=== PATIENT | male | born 1975 | race Caucasian/White ===

== ENCOUNTER 2020-10-22 07:56 | Outpatient (REF) | payer OTHER, SELFPAY ==
[2020-10-22 08:36] LABS: Hematocrit 39.5 % (42-52); Hemoglobin 12.8 g/dl (14.0-18.0); Mean Corpuscular HGB Conc 32.4 g/dl (31.0-36.0); Mean Corpuscular Hemoglobin 27.2 pg (27.0-33.0); Mean Corpuscular Volume 83.9 fL (80-98); Mean Platelet Volume 10.6 fL (9.4-12.4); Red Blood Count 4.71 X10*6/uL (4.60-5.80); Red Cell Distribution Width 14.5 % (11.0-16.0)
[2020-10-22 08:38] LABS: Platelet Count 90 X10*3/uL (160-400)
[2020-10-22 08:56] LABS: Alanine Aminotransferase 32 U/L (0-40); Albumin Level 3.6 g/dL (3.5-5.0); Alkaline Phosphatase 86 U/L (39-117); Aspartate Amino Transferase 44 U/L (5-37); Bilirubin Direct 0.4 mg/dL (0.0-0.5); Cholesterol 110 mg/dL; HDL Cholesterol 38 mg/dL; LDL Cholesterol Calculated 55 mg/dl; Total Protein 6.8 g/dL (6.5-8.0); Triglycerides 89 mg/dL
[2020-10-22 09:19] LABS: Thyroid Stimulating Hormone 2.04 uIU/mL (0.32-4.0)
[2020-10-22 09:30] LABS: Folate 14.6 ng/mL (> or = 4.0); Vitamin B12 436 pg/mL (200-900)
[2020-10-25 12:26] LABS: Vitamin D 25-OH, D2 <4 ng/mL; Vitamin D 25-OH, D3 14 ng/mL; Vitamin D 25-OH, Total 14 ng/mL (30-100)
== END 2020-10-22 07:57 | disposition home or self-care (01) ==
LOC: HO.LAB 07:56
PROVIDERS: Visit Provider Internal Medicine
DX: F32.5 Major depressive disorder, single episode, in full remission (principal)
CPT/HCPCS: 36415; 80061; 80076; 82306; 82607; 82746; 84443; 85027

== ENCOUNTER 2020-11-20 15:32 | Outpatient (REF) | payer OTHER, SELFPAY ==
[2020-11-20 16:37] LABS: MANUAL DIFF FLAG NO
[2020-11-20 16:42] LABS: Basophils Percent Auto 0.7 % (0-2); Eosinophils Absolute Auto 0.1 X10*3/uL (0.0-0.4); Eosinophils Percent Auto 0.9 % (0-4); Hematocrit 44.2 % (42-52); Hemoglobin 14.1 g/dl (14.0-18.0); Imm Gran Abs Auto 0.01 X10*3/uL (0.00-0.03); Imm Gran Pct Auto 0.2 % (0.0-0.4); Lymphocytes Absolute Auto 2.2 X10*3/uL (1.2-4.9); Mean Corpuscular HGB Conc 31.9 g/dl (31.0-36.0); Mean Corpuscular Hemoglobin 26.9 pg (27.0-33.0); Mean Corpuscular Volume 84.4 fL (80-98); Mean Platelet Volume 10.9 fL (9.4-12.4); Monocytes Absolute Auto 0.5 X10*3/uL (0.1-1.2); Monocytes Percent Auto 7.7 % (2-11); Neutrophils Absolute Auto 3.1 X10*3/uL (2.0-8.3); Neutrophils Percent Auto 52.5 % (45-73); Platelet Count 119 X10*3/uL (160-400); Red Blood Count 5.24 X10*6/uL (4.60-5.80); Red Cell Distribution Width 14.3 % (11.0-16.0); White Blood Count 5.8 X10*3/uL (4.8-10.8)
[2020-11-20 17:11] LABS: Alanine Aminotransferase 37 U/L (0-40); Albumin Level 4.5 g/dL (3.5-5.0); Alkaline Phosphatase 67 U/L (39-117); Anion Gap 11 (12-20); Aspartate Amino Transferase 43 U/L (5-37); Bilirubin Total 1.1 mg/dL (0.0-1.0); Blood Urea Nitrogen 10 mg/dL (9-16); Calcium 8.9 mg/dL (8.4-10.2); Carbon Dioxide 32 mmol/L (22-29); Chloride 102 mmol/L (96-108); Estimated Glomerular Filt Rate > 60; Glucose Fasting 69 mg/dL (60-99); Potassium 3.8 mmol/L (3.3-5.1); Sodium 141 mmol/L (135-145); Total Protein 8.3 g/dL (6.5-8.0)
== END 2020-11-20 15:33 | disposition home or self-care (01) ==
LOC: HO.LAB 15:32
PROVIDERS: Visit Provider Nurse Practitioner Family
DX: Z01.818 Encounter for other preprocedural examination (principal)
CPT/HCPCS: 36415; 80053; 85025

== ENCOUNTER 2020-12-13 13:09 | Outpatient (REF) | payer OTHER, SELFPAY ==
[2020-12-13 14:10] LABS: Eosinophils Absolute Auto 0.1 X10*3/uL (0.0-0.4); Eosinophils Percent Auto 1.2 % (0-4); Hemoglobin 13.1 g/dl (14.0-18.0); Imm Gran Abs Auto 0.01 X10*3/uL (0.00-0.03); Imm Gran Pct Auto 0.2 % (0.0-0.4); MANUAL DIFF FLAG SCAN; PLT CLUMP 1; Red Cell Distribution Width 14.2 % (11.0-16.0); SCAN SMEAR FLAG 1
[2020-12-13 14:12] LABS: Basophils Percent Auto 0.4 % (0-2); Lymphocytes Absolute Auto 1.9 X10*3/uL (1.2-4.9); Lymphocytes Percent Auto 37.3 % (20-40); Mean Corpuscular HGB Conc 32.8 g/dl (31.0-36.0); Mean Corpuscular Hemoglobin 27.2 pg (27.0-33.0); Mean Platelet Volume 10.3 fL (9.4-12.4); Monocytes Absolute Auto 0.4 X10*3/uL (0.1-1.2); Monocytes Percent Auto 8.3 % (2-11); Neutrophils Absolute Auto 2.7 X10*3/uL (2.0-8.3); Neutrophils Percent Auto 52.6 % (45-73); Red Blood Count 4.82 X10*6/uL (4.60-5.80)
[2020-12-13 14:22] LABS: Platelet Count 97 X10*3/uL (160-400)
[2020-12-13 14:25] LABS: Alanine Aminotransferase 26 U/L (0-40); Albumin Level 3.9 g/dL (3.5-5.0); Alkaline Phosphatase 71 U/L (39-117); Amylase 55 U/L (28-100); Anion Gap 10 (12-20); Aspartate Amino Transferase 36 U/L (5-37); Bilirubin Total 0.7 mg/dL (0.0-1.0); Blood Urea Nitrogen 6 mg/dL (9-16); Calcium 8.6 mg/dL (8.4-10.2); Carbon Dioxide 30 mmol/L (22-29); Chloride 104 mmol/L (96-108); Estimated Glomerular Filt Rate > 60; Glucose Random 77 mg/dL (60-115); Lipase 20 U/L (8-78); Sodium 140 mmol/L (135-145); Total Protein 7.2 g/dL (6.5-8.0)
== END 2020-12-13 13:10 | disposition home or self-care (01) ==
LOC: HO.HMGCLDS 13:09
PROVIDERS: Visit Provider Nurse Practitioner Family
DX: R10.11 Right upper quadrant pain (principal)
CPT/HCPCS: 36415; 80053; 82150; 83690; 85025; 87086

== ENCOUNTER 2020-12-14 11:32 | Outpatient (REF) | payer OTHER, SELFPAY ==
--- NOTE | ~2020-12-14 | US_ITS ---
EXAMINATION: US ABDOMEN LIMITED CLINICAL INFORMATION: Right upper quadrant pain. COMPARISON: Previous CT of the abdomen and pelvis most recent March 2018, MRI of the abdomen October 2018 and abdominal ultrasound September 2018 TECHNIQUE: Real-time imaging of the right upper quadrant abdominal viscera. FINDINGS: PANCREAS: Not well visualized due to bowel gas LIVER: Liver echotexture is heterogeneous suggestive of hepatocellular disease. The liver echotexture is slightly increased. No focal liver lesion is seen. There is no biliary duct dilatation. GALLBLADDER: Gallbladder is distended. No gallstones are seen. The gallbladder wall is normal thickness. There is no pericholecystic fluid. COMMON BILE DUCT: Normal in caliber measuring 0.7 cm in diameter. RIGHT KIDNEY: Normal. No hydronephrosis. No renal calculi or focal parenchymal lesions. The kidney measures 10.4 cm in maximum dimension. FREE FLUID: None. US/US abdomen limited IMPRESSION: Heterogeneous liver suggestive of hepatocellular disease. Distended gallbladder. No gallstone seen. Pancreas not well visualized.
== END 2020-12-14 11:33 | disposition home or self-care (01) ==
LOC: HO.HMGCX 11:32
PROVIDERS: PCP Internal Medicine; Visit Provider Nurse Practitioner Family
DX: R10.11 Right upper quadrant pain (principal); K74.60 Unspecified cirrhosis of liver
CPT/HCPCS: 76705

== ENCOUNTER 2020-12-23 07:06 | Emergency (ER) | payer OTHER, SELFPAY ==
--- NOTE | ~2020-12-23 | CT_ITS ---
EXAMINATION: CT ABDOMEN AND PELVIS WITH CONTRAST CLINICAL INFORMATION: Right upper quadrant and right-sided abdominal pain. COMPARISON: MRI of 10/12/18. Prior CT scan of 03/26/18. TECHNIQUE: Multidetector volumetric images were obtained from the superior aspect of the liver through the pubic symphysis following administration 85 mL of Omnipaque 350 intravenous contrast. Sagittal and coronal reformatted images were obtained on the technologist's workstation. Oral contrast: No This CT examination was performed using dose optimization techniques as appropriate, variously including the following: *Automated exposure control *Adjustment of mA and/or kV according to patient size (this includes techniques or standardized protocols for targeted exams where dose is matched to indication/reason for exam; i.e. extremities or head) *Use of iterative reconstruction technique DLP: 934 mGy-cm FINDINGS: LUNG BASES: A small pleural-based opacity at the right base is consistent with scarring unchanged from previous. LIVER, GALLBLADDER, AND BILIARY TREE: Mild nodular contour of the liver is again demonstrated. Small liver lesion seen on the prior studies are not as conspicuous. No suspicious abnormality is demonstrated. The gallbladder is unremarkable with no evidence of radiopaque gallstones, gallbladder wall thickening, or obvious pericholecystic inflammatory changes. Mild prominence of the CBD and central intrahepatic ducts is slightly increased. The CBD measures 1.0 cm. No obstructing lesion is demonstrated. PANCREAS: Unremarkable. SPLEEN: The spleen is enlarged measuring 16 cm in maximal dimension. Splenic varices are again demonstrated. ADRENAL GLANDS: Unremarkable. KIDNEYS AND URETERS: The kidneys are normal in size, shape, and attenuation. No hydronephrosis, hydroureter, or calculi seen. No perinephric stranding. 2 small cysts in the right kidney are unchanged. BLADDER: Unremarkable. GASTROINTESTINAL TRACT: The stomach and duodenum are unremarkable. The small bowel mesentery are unremarkable. The colon is unremarkable. The appendix is not visualized. Surgical changes at the tip of the cecum suggest previous appendectomy. ABDOMINAL WALL: No significant hernia is appreciated. A small subcutaneous lesion anteriorly in the suprapubic region is unchanged. LYMPH NODES: Normal. VASCULAR: Unremarkable. PELVIC VISCERA: Unremarkable. OSSEOUS STRUCTURES: There is a sclerotic lesion in the posterior left ilium consistent with benign bone island unchanged. Progression of degenerative disc disease at L5-S1. No suspicious lesion. CT/CT abdomen pelvis w con IMPRESSION: 1. Mildly cirrhotic appearance of the liver with no suspicious abnormality demonstrated. Overall appearance is improved. 2. Mildly dilated CBD and central intrahepatic ducts increased from previous. No obstructing lesion is demonstrated. Correlation with liver enzymes is suggested. 3. Stable appearance of splenomegaly with varices consistent with portal hypertension. 4. Progression of degenerative disc disease at L5-S1.
[2020-12-23 07:10] VITALS: BP 130/68; PULSE 94; RESP 16; TEMP 36.9; O2SAT 98; BMI 34.7
--- NOTE | 2020-12-23 07:52 | ED_ITS ---
HPI - Abdominal Pain General Chief Complaint: Abdominal Pain Stated Complaint: GALL BLADDER PAIN Time Seen by Provider: 12/23/20 07:41 Source: patient and old records reviewed Mode of arrival: ambulatory Limitations: no limitations History of Present Illness HPI narrative: 45 yo male with hx of ETOH abuse, opiate use disorder, cirrhosis likely from ETOH and Hep C which is treated per him has been having RUQ pain for a few weeks seen on 12/13 with normal LFTs, US normal but distended GB, cirrhotic liver MD elicited complaint: abdominal pain Onset (ago): week(s) Pain Consistency: intermittent Location: RUQ Severity: moderate Quality: stabbing and aching Radiation: RUQ Migration to: no migration Exacerbating factors: nothing Relieving factors: nothing Associated symptoms: nausea and vomiting Related Data Previous Rx's Medication Instructions Recorded citalopram 10 mg tablet 10 mg PO DAILY #90 tab 08/21/20 cholecalciferol (vitamin D3) 1,250 1,250 mcg PO QWEEK #14 cap 11/06/20 mcg (50,000 unit) capsule doxepin 50 mg capsule 50 mg PO BEDTIME #30 cap 11/06/20 Allergies Allergy/AdvReac Type Severity Reaction Status Date / Time No Known Allergies Allergy Verified 12/13/20 12:30 [No Known Allergies*] Review of Systems Review of Systems Constitutional : No Weight loss, No Fever, No Chills ENT/Mouth : No sore throat, No Rhinorrhea Eyes: No Swelling, No Redness Cardiovascular : No Chest Pain, No SOB, NoEdema Respiratory : No Cough, No Sputum, No Wheezing Gastrointestinal : Positive Nausea, Positive Vomiting, no Diarrhea, positive abdominal Pain, No Hematochezia, No Melena, pos constipation Genitourinary : pos Dysuria, No Urinary Frequency, No Hematuria, No Urgency Musculoskeletal : No joint pain, No Myalgias, No Joint Swelling Skin : No Skin Lesions, No rash Neuro : No Weakness, No Numbness, No Dizziness, No Headache Psych : No Anxiety/Panic, No Depression Heme/Lymph: No Bruising, No Lymphadenopathy Endocrine : No Polyuria, No Polydipsia All other systems reviewed and are negative. Physical Exam Vital Signs: Vital Signs: Last Vital Signs Temp 98.5 F 12/23/20 07:10 Pulse 94 12/23/20 07:10 Resp 16 12/23/20 07:10 BP 130/68 12/23/20 07:10 Pulse Ox 98 12/23/20 07:10 Body Mass Index 34.7 Appearance: Alert. Oriented X3. No acute distress. Eyes: Pupils equal, round and reactive to light. ENT: Pharynx normal. Neck: Normal inspection. Neck supple. CVS: Normal heart rate and rhythm. Pulses normal. Respiratory: No respiratory distress. Breath sounds normal. Abdomen: Soft and moderate ttp R flank and RUQ neg [place]'s Skin: Skin warm and dry. Normal skin color. Normal skin turgor. Extremities: No lower extremity edema. No calf ttp Neuro: Oriented X 3. No motor deficit. No sensory deficit. Course Course Course Narrative: labs reassuring, CT scan pending, patient wants to leave prior to the results he is dressed I will call with his CT scan results left message for patient regarding CT scan results 1046am MDM - Abdominal Pain MDM Narrative Medical decision making narrative: 45 yo male with ETOH, opiate use disorder, cirrhosis from ETOH and treated Hep C comes in with weeks of RUQ pain and n/v with some dysuria, just had normal LFTs, US of GB no stones and no cholecystitis - at this time will need labs, CT scan for stone/GB, dispo per results and findings. Lab Data Result diagrams: 12/23/20 08:04 12/23/20 08:04 Labs: Lab Results 12/23/20 12/23/20 12/23/20 Range/Units 08:04 08:04 08:04 WBC 3.9 L (4.8-10.8) X10*3/uL RBC 4.87 (4.60-5.80) X10*6/uL Hgb 13.0 L (14.0-18.0) g/dl Hct 40.4 L (42-52) % MCV 83.0 (80-98) fL MCH 26.7 L (27.0-33.0) pg MCHC 32.2 (31.0-36.0) g/dl RDW 14.7 (11.0-16.0) % Plt Count 89 L (160-400) X10*3/uL MPV 9.9 (9.4-12.4) fL Immature Gran % (Auto) 0.0 (0.0-0.4) % Neut % (Auto) 56.7 (45-73) % Lymph % (Auto) 34.6 (20-40) % [place] % (Auto) 7.2 (2-11) % Eos % (Auto) 1.0 (0-4) % Baso % (Auto) 0.5 (0-2) % Lymph # (Auto) 1.3 (1.2-4.9) X10*3/uL [place] # (Auto) 0.3 (0.1-1.2) X10*3/uL Eos # (Auto) 0.0 (0.0-0.4) X10*3/uL Baso # (Auto) 0.0 (0.0-0.2) X10*3/uL Abs Immat Gran (auto) 0.00 (0.00-0.03) X10*3/uL Absolute Neuts (auto) 2.2 (2.0-8.3) X10*3/uL Absolute Nucleated RBC 0.000 (0.0-0.012) X10*3/uL Nucleated RBC % (auto) 0.0 (0.0-0.2) /100WBC PT 14.8 H (10.8-13.0) SEC INR 1.2 H (0.9-1.1) APTT 35.1 (24.1-38.0) SEC Sodium 142 (135-145) mmol/L Potassium 4.0 (3.3-5.1) mmol/L Chloride 108 (96-108) mmol/L Carbon Dioxide 26 (22-29) mmol/L Anion Gap 12 (12-20) BUN 8 L (9-16) mg/dL Creatinine 0.86 (0.5-1.4) mg/dL Estim Creat Clear Calc 149.7 Estimated GFR > 60 Random Glucose 104 D (60-115) mg/dL Calcium 8.4 (8.4-10.2) mg/dL Magnesium 1.9 (1.6-2.6) mg/dL Total Bilirubin 0.8 (0.0-1.0) mg/dL Direct Bilirubin 0.3 (0.0-0.5) mg/dL AST 34 (5-37) U/L ALT 29 (0-40) U/L Alkaline Phosphatase 62 (39-117) U/L Total Protein 6.7 (6.5-8.0) g/dL Albumin 3.6 (3.5-5.0) g/dL Lipase 30 (8-78) U/L Discharge Plan Discharge Clinical Impression: Abdominal pain Qualifiers: Abdominal location: right upper quadrant Qualified Code(s): R10.11 - Right upper quadrant pain Patient Disposition: Home, Self-Care Instructions: Abdominal Pain (ED) Additional Instructions: return to ED for any worsening symptoms or concerns I will call you with your CT scan results, you left prior to results please keep your Gallbladder test Prescriptions: No Action citalopram 10 mg tablet 10 mg PO DAILY Qty: 90 RF: 1 doxepin 50 mg capsule 50 mg PO BEDTIME Qty: 30 RF: 1 cholecalciferol (vitamin D3) 1,250 mcg (50,000 unit) capsule 1,250 mcg PO QWEEK Qty: 14 RF: 1 Interventions: ED Discharge Assessment Last Done: 12/23/20 10:38 Discharge Date/Time: 12/23/20 10:39 [facility] Past Medical History Attestation statement: The following information was validated with the patient. Medical History Alcoholism Alcoholism and drug addiction in family Major depression Pre-op examination Surgical History History of appendectomy Family History Family History Father No problems noted. Mother Chronic mental illness Family/Other Depression Substance abuse Social History Social History Alcohol intake: current Alcohol intake frequency: does not drink Smoking Status: Current every day smoker Cigarettes Per Day: 4 Advance Directives: Yes Advance Directives Information Provided: No Advance Directives on File: No
[2020-12-23] MEDS: 0.9 % Sodium Chloride 1,000 ML 999 ML IVCONT (08:05)
[2020-12-23 08:11] LABS: MANUAL DIFF FLAG NO
[2020-12-23 08:12] LABS: Basophils Percent Auto 0.5 % (0-2); Hematocrit 40.4 % (42-52); Lymphocytes Absolute Auto 1.3 X10*3/uL (1.2-4.9); Lymphocytes Percent Auto 34.6 % (20-40); Mean Corpuscular HGB Conc 32.2 g/dl (31.0-36.0); Mean Corpuscular Hemoglobin 26.7 pg (27.0-33.0); Mean Platelet Volume 9.9 fL (9.4-12.4); Monocytes Absolute Auto 0.3 X10*3/uL (0.1-1.2); Monocytes Percent Auto 7.2 % (2-11); Neutrophils Absolute Auto 2.2 X10*3/uL (2.0-8.3); Neutrophils Percent Auto 56.7 % (45-73); Red Blood Count 4.87 X10*6/uL (4.60-5.80); Red Cell Distribution Width 14.7 % (11.0-16.0); White Blood Count 3.9 X10*3/uL (4.8-10.8)
[2020-12-23 08:14] LABS: Platelet Count 89 X10*3/uL (160-400)
[2020-12-23 08:18] LABS: INTERNATIONAL NORM RATIO 1.2 (0.9-1.1); Prothrombin Time 14.8 SEC (10.8-13.0)
[2020-12-23 08:20] LABS: Partial Thromboplastin Time 35.1 SEC (24.1-38.0)
[2020-12-23] MEDS: ondansetron HCL 4 MG/2 ML VIAL IVPUSH (08:26)
[2020-12-23] MEDS: Ketorolac Tromethamine 30 MG/ML VIAL IVPUSH (08:26)
[2020-12-23 08:40] LABS: Alanine Aminotransferase 29 U/L (0-40); Albumin Level 3.6 g/dL (3.5-5.0); Alkaline Phosphatase 62 U/L (39-117); Anion Gap 12 (12-20); Aspartate Amino Transferase 34 U/L (5-37); Bilirubin Direct 0.3 mg/dL (0.0-0.5); Bilirubin Total 0.8 mg/dL (0.0-1.0); Blood Urea Nitrogen 8 mg/dL (9-16); Calcium 8.4 mg/dL (8.4-10.2); Carbon Dioxide 26 mmol/L (22-29); Chloride 108 mmol/L (96-108); Creatinine Clr Calc Pharmacy 149.7; Estimated Glomerular Filt Rate > 60; Glucose Random 104 mg/dL (60-115); Lipase 30 U/L (8-78); Magnesium 1.9 mg/dL (1.6-2.6); Sodium 142 mmol/L (135-145); Total Protein 6.7 g/dL (6.5-8.0)
[2020-12-23] MEDS: iohexoL 350 MG/ML 100 ML INFUS..BTL IV (10:11)
== END 2020-12-23 10:39 | disposition home or self-care (01) ==
PROVIDERS: Emergency Provider Emergency Medicine; PCP Internal Medicine
DX: R10.11 Right upper quadrant pain (principal); F10.20 Alcohol dependence, uncomplicated; K74.60 Unspecified cirrhosis of liver; Z86.19 Personal history of other infectious and parasitic diseases; F17.200 Nicotine dependence, unspecified, uncomplicated
CPT/HCPCS: 36415; 74177; 80048; 80076; 83690; 83735; 85025; 85610; 85730; 96361; 96374; 96375; 99283; 99284; J1885; J2405; Q9967

== ENCOUNTER 2020-12-25 18:32 | Emergency (ER) | payer OTHER, SELFPAY ==
--- NOTE | ~2020-12-25 | XR_ITS ---
EXAMINATION: XR CHEST CLINICAL INFORMATION: Fever COMPARISON: 06/24/2018 TECHNIQUE: Frontal view of the chest was obtained. FINDINGS: Cardiac leads overlie the chest. The lungs are well expanded. Bronchial wall thickening present. There is no focal consolidation, edema, or effusion. No pneumothorax. The cardiomediastinal silhouette is within normal limits. No acute osseous abnormality. XR/XR chest 1V IMPRESSION: No dense consolidation. Bronchial wall thickening can be seen with a small airways process such as asthma or atypical/viral infection.
--- NOTE | ~2020-12-25 | CT_ITS ---
EXAMINATION: CT ABDOMEN AND PELVIS WITH CONTRAST CLINICAL INFORMATION: Abdominal pain. Known cholelithiasis. Note: No gallstones seen on the ultrasound study of 12/14/2020 or the abdomen MR study of 10/12/2018. COMPARISON: CT abdomen pelvis 12/23/2020. Ultrasound of abdomen 12/14/2020. MR abdomen 10/12/2018 TECHNIQUE: Multidetector volumetric images were obtained from the superior aspect of the liver through the pubic symphysis following administration 85 mL of Omnipaque 350 intravenous contrast. Sagittal and coronal reformatted images were obtained on the technologist's workstation. Oral contrast: No This CT examination was performed using dose optimization techniques as appropriate, variously including the following: *Automated exposure control *Adjustment of mA and/or kV according to patient size (this includes techniques or standardized protocols for targeted exams where dose is matched to indication/reason for exam; i.e. extremities or head) *Use of iterative reconstruction technique DLP: 923 mGy-cm FINDINGS: LUNG BASES: The visualized lung bases are unremarkable. LIVER, GALLBLADDER, AND BILIARY TREE: Mildly cirrhotic appearing liver. Micronodular liver surface. No focal liver lesion. There is mild intrahepatic and extra hepatic bile duct dilatation. Gallbladder is mildly distended. No edema around the gallbladder. There is dilatation of the extrahepatic CBD measuring 1.2 cm at the bladimir hepatis. This is unchanged since prior CAT scan 12/23/2020. CBD on the ultrasound abdomen study of 12/14/2020 measured 0.7 cm. No calcified stone seen within the bile ducts. PANCREAS: Unremarkable. SPLEEN: Spleens enlarged measuring 17 cm AP. ADRENAL GLANDS: Unremarkable. KIDNEYS AND URETERS: The kidneys are normal in size, shape, and attenuation. No hydronephrosis, hydroureter, or calculi seen. No perinephric stranding. BLADDER: Unremarkable. GASTROINTESTINAL TRACT: There are scattered diverticula of the colon. There is no diverticulitis. There is no bowel wall thickening /edema. There is no bowel obstruction. There is a moderate to large volume of stool in the colon. The appendix is surgically absent . The small bowel loops are unremarkable. The stomach is normal. There is no hiatal hernia. ABDOMINAL WALL: No significant hernia is appreciated. LYMPH NODES: Normal. VASCULAR: Prominent varices in the left upper quadrant PELVIC VISCERA: Unremarkable. OSSEOUS STRUCTURES: Degenerative vacuum changes at L5-S1. Mild degenerative lipping at the anterior endplates of the thoracic vertebral bodies. Stable small bone island left iliac wing. CT/CT abdomen pelvis w con IMPRESSION: 1. Mild intrapelvic bile duct dilatation. Dilatation of the CBD to a diameter of 1.2 cm. This has increased dilatation since the ultrasound abdomen study of 12/14/2020. 2. Cirrhosis of liver. Splenomegaly. Left upper quadrant varices. 3. Scattered diverticula colon. No acute changes of the bowel.
[2020-12-25 20:10] VITALS: BP 120/80; PULSE 105; RESP 18; TEMP 38.2; O2SAT 94; BMI 36.9
[2020-12-25 21:40] LABS: Hemoglobin 14.1 g/dl (14.0-18.0); MANUAL DIFF FLAG SCAN; PLT CLUMP 1; Red Cell Distribution Width 14.6 % (11.0-16.0); SCAN SMEAR FLAG 1
[2020-12-25 21:41] LABS: Basophils Percent Auto 0.2 % (0-2); Eosinophils Percent Auto 0.4 % (0-4); Hematocrit 43.3 % (42-52); Imm Gran Abs Auto 0.02 X10*3/uL (0.00-0.03); Imm Gran Pct Auto 0.2 % (0.0-0.4); Lymphocytes Absolute Auto 1.9 X10*3/uL (1.2-4.9); Lymphocytes Percent Auto 21.5 % (20-40); Mean Corpuscular HGB Conc 32.6 g/dl (31.0-36.0); Mean Corpuscular Hemoglobin 26.8 pg (27.0-33.0); Mean Corpuscular Volume 82.2 fL (80-98); Mean Platelet Volume 9.7 fL (9.4-12.4); Monocytes Absolute Auto 0.5 X10*3/uL (0.1-1.2); Monocytes Percent Auto 5.5 % (2-11); Neutrophils Absolute Auto 6.4 X10*3/uL (2.0-8.3); Neutrophils Percent Auto 72.2 % (45-73); Red Blood Count 5.27 X10*6/uL (4.60-5.80); White Blood Count 8.9 X10*3/uL (4.8-10.8)
[2020-12-25 21:48] LABS: Platelet Count 104 X10*3/uL (160-400)
[2020-12-25 21:50] LABS: SLIDE REVIEW VERIFIED
--- NOTE | 2020-12-25 21:50 | ED_ITS ---
HPI - Fever General Chief Complaint: Weakness <RONNY Esteban Last Filed: 12/26/20 01:51> Stated Complaint: WEAKNESS, DEHYDRATION <RONNY Esteban Last Filed: 12/26/20 01:51> Time Seen by Provider: 12/25/20 18:47 <RONNY Esteban Last Filed: 12/26/20 01:51> Source: patient and family <RONNY Esteban Last Filed: 12/26/20 01:51> Mode of arrival: ambulatory <Patrica Michel NP - Last Filed: 12/26/20 01:51> Limitations: no limitations <Patrica Michel NP - Last Filed: 12/26/20 01:51> History of Present Illness HPI Narrative: 45 yo male with hx of ETOH abuse, opiate use disorder, cirrhosis likely from ETOH, treated Hep C, and recent dental procedure on clindamycin last dose is due tomorrow. He presents with fatigue, lethargy, and fevers. He has been seen several times in this department, on 12/13, and 12/23/2020 for RUQ pain diagnosed with mildly dilated CBD and central intrahepatic ducts without cholecystitis or cholelithiasis. He denies illicit drug use, states to have been prescribed opioids for dental procedure. <RONNY Esteban Last Filed: 12/26/20 01:51> MD elicited complaint: fever and malaise <Patrica Michel NP - Last Filed: 12/26/20 01:51> Onset (ago): day(s) <Patrica Michel NP - Last Filed: 12/26/20 01:51> Measured temperature: 100.7 F <RONNY Esteban Last Filed: 12/26/20 01:51> Context: recent procedure and recent antibiotic use <RONNY Esteban Last Filed: 12/26/20 01:51> Relieving factors: nothing <RONNY Esteban Last Filed: 12/26/20 01:51> Associated symptoms: chills, myalgias, shortness of breath and nausea <RONNY Esteban Last Filed: 12/26/20 01:51> Treatments prior to arrival fever: antibiotics <RONNY Esteban Last Filed: 12/26/20 01:51> Related Data Home Medications: Previous Rx's Medication Instructions Recorded doxepin 50 mg capsule 50 mg PO BEDTIME #30 cap 11/06/20 <RONNY Esteban Last Filed: 12/26/20 01:51> Allergies/Adverse Reactions: Allergies Allergy/AdvReac Type Severity Reaction Status Date / Time No Known Allergies Allergy Verified 12/13/20 12:30 [No Known Allergies*] <RONNY Esteban Last Filed: 12/26/20 01:51> Review of Systems Review of Systems: Constitutional: Positive fever, positive chills, positive fatigue, positive malaise, No Weight loss ENT/Mouth: Positive dental pain due to recent extraction, No Hearing loss, No Ear Pain, No Nasal Congestion, No Sinus Pain, No Hoarseness, No sore throat, No Rhinorrhea, No Swallowing Difficulty Eyes: No Eye Pain, No Swelling, No Redness, No Foreign Body, No Discharge, No Vision Changes Cardiovascular: Positive Chest Pain, positive SOB, No Dyspnea on Exertion, No Orthopnea, No Edema, No Palpitations Respiratory: Positive Cough, No Sputum, No Wheezing, No Smoke Exposure, No Dyspnea Gastrointestinal: Positive abdominal pain, Positive Nausea, no Vomiting, no Diarrhea, No Hematochezia, No Melena Genitourinary: no irregular bleeding, No Dysuria, No Urinary Frequency, No Hematuria, No Urinary Incontinence, No Urgency, No Flank Pain, No Urinary Flow Changes, No Hesitancy Musculoskeletal: No joint pain, No Myalgias, No Joint Swelling Skin: No Skin Lesions, No rash Neuro: No Weakness, No Numbness, No Paresthesias, No Loss of Consciousness, No Dizziness, No Headache Psych: No Anxiety/Panic, No Depression, No SI/HI/AH/VH, No Social Issues Heme/Lymph: No Bruising, No Bleeding,No Lymphadenopathy Endocrine: No Polyuria, No Polydipsia, No Temperature Intolerance <RONNY Esteban Last Filed: 12/26/20 01:51> Yes all other systems are reviewed and are negative <RONNY Esteban Last Filed: 12/26/20 01:51> [facility] Past Medical History Attestation statement: The following information was validated with the patient. <Patrica Michel NP - Last Filed: 12/26/20 01:51> Source: old records reviewed <Patrica Michel NP - Last Filed: 12/26/20 01:51> Medical History: Medical History Alcoholism Alcoholism and drug addiction in family Major depression Pre-op examination <Patrica Michel NP - Last Filed: 12/26/20 01:51> Surgical History: Surgical History History of appendectomy <Patrica Michel NP - Last Filed: 12/26/20 01:51> Family History Family History: Family History Father No problems noted. Mother Chronic mental illness Family/Other Depression Substance abuse <Patrica Michel NP - Last Filed: 12/26/20 01:51> Social History Social History: Social History Alcohol intake: former Smoking Status: Current every day smoker Cigarettes Per Day: 4 Use of substances other than those prescribed or required for medical reasons: No Advance Directives: No Advance Directives Information Provided: No <Patrica Michel NP - Last Filed: 12/26/20 01:51> Physical Exam Vital Signs: Vital Signs: Last Vital Signs Temp 98.9 F 12/26/20 01:54 Pulse 80 12/26/20 01:54 Resp 16 12/26/20 01:54 BP 110/69 12/26/20 01:54 Pulse Ox 92 12/26/20 01:54 Body Mass Index 36.9 <Patrica Michel NP - Last Filed: 12/26/20 01:51> Vital Signs: Last Vital Signs Temp 98.9 F 12/26/20 01:54 Pulse 80 12/26/20 01:54 Resp 16 12/26/20 01:54 BP 110/69 12/26/20 01:54 Pulse Ox 92 12/26/20 01:54 Body Mass Index 36.9 <Gab Carter MD - Last Filed: 12/26/20 03:16> Appearance: Alert. Oriented X3. Moderate distress. Fatigued, febrile Head: Normal external exam. Normocephalic. Atraumatic. No Rai signs noted. No raccoon eyes noted Eyes: PERRLA. EOMI. Conjunctiva and sclera normal. Eyelids normal. ENT: No indication of dry socket, TM's Normal. Pharynx normal. Uvula midline. Moist mucous membranes. No trismus noted. No drooling noted. No muffled voice noted. Neck: Normal inspection. Neck supple. No adenopathy. CVS: Tachycardic heart rate and rhythm. Heart sound normal. No murmurs noted. Pulses equal to all extremities. Respiratory: No respiratory distress. Painless inspiration. Breath sounds normal. No wheezes/rales/rhonchi noted. Chest nontender. No accessory muscle usage noted or decreased air movement noted. Abdomen: Soft and tender to right upper quadrant on deep palpation, Bowel sounds normal in all 4 quadrants. No distention noted. No organomegaly noted. No visible injury noted. Back: No CVA tenderness. Full range of motion noted. Skin: Skin warm and dry. Normal skin color. Normal skin turgor. No rashes/lesions/lacerations noted. Extremities: No lower extremity edema. Extremities exhibit normal range of motion. Extremities nontender. Neuro: cranial nerves 2-12 intact, no focal neural deficits, strength 5/5 to all extremities, No motor deficit. No sensory deficit. <Patrica Michel NP - Last Filed: 12/26/20 01:51> Course Course Course Narrative: 45 yo male with hx of ETOH abuse, opiate use disorder, cirrhosis likely from ETOH, treated Hep C, and recent dental procedure on clindamycin last dose is due tomorrow. He presents with fatigue, lethargy, and fevers. He has been seen several times in this department, on 12/13, and 12/23/2020 for RUQ pain diagnosed with mildly dilated CBD and central intrahepatic ducts without cholecystitis or cholelithiasis. He denies illicit drug use, states to have been prescribed opioids for dental procedure. Will repeat CT scan, resuscitate fluids, treat for pain and fever with Toradol, and Tylenol. CT scan shows a slight increase in duct dilation since 12/14/2020, cirrhosis and splenomegaly with left upper quadrant varices, and scattered diverticula. No indication of acute abdomen. Patient's tox screen positive for benzos and marijuana, which could be a reason for his fatigue. Strangely he did test negative for opioids although he has been taking his oxycodone as scheduled. Dr. Carter into evaluate patient. Will add on CRP, sed rate, lactic, cultures. Sign-out to Dr. Carter <Patrica Michel NP - Last Filed: 12/26/20 01:51> MDM - Fever MDM Narrative Medical decision making narrative: Cholecystitis, pancreatitis <Patrica Michel NP - Last Filed: 12/26/20 01:51> Differential Diagnosis Differential diagnosis: Likely fever of unknown origin, community acquired pneumonia, pyelonephritis, viral infection, sepsis and influenza <Patrica Michel NP - Last Filed: 12/26/20 01:51> Medical Records Attestation: I reviewed the patient's medical records. <Patrica Michel NP - Last Filed: 12/26/20 01:51> Lab Data Attestation: I reviewed the patient's lab results. <Patrica Michel NP - Last Filed: 12/26/20 01:51> Result diagrams: : 12/25/20 21:26 12/25/20 21:26 <Patrica Michel NP - Last Filed: 12/26/20 01:51> Labs: Lab Results 12/25/20 12/25/20 12/25/20 Range/Units 21:26 21:26 21:26 WBC 8.9 (4.8-10.8) X10*3/uL RBC 5.27 (4.60-5.80) X10*6/uL Hgb 14.1 (14.0-18.0) g/dl Hct 43.3 (42-52) % MCV 82.2 (80-98) fL MCH 26.8 L (27.0-33.0) pg MCHC 32.6 (31.0-36.0) g/dl RDW 14.6 (11.0-16.0) % Plt Count 104 L (160-400) X10*3/uL MPV 9.7 (9.4-12.4) fL Immature Gran % (Auto) 0.2 (0.0-0.4) % Neut % (Auto) 72.2 (45-73) % Lymph % (Auto) 21.5 (20-40) % [place] % (Auto) 5.5 (2-11) % Eos % (Auto) 0.4 (0-4) % Baso % (Auto) 0.2 (0-2) % Lymph # (Auto) 1.9 (1.2-4.9) X10*3/uL [place] # (Auto) 0.5 (0.1-1.2) X10*3/uL Eos # (Auto) 0.0 (0.0-0.4) X10*3/uL Baso # (Auto) 0.0 (0.0-0.2) X10*3/uL Abs Immat Gran (auto) 0.02 (0.00-0.03) X10*3/uL Absolute Neuts (auto) 6.4 (2.0-8.3) X10*3/uL Absolute Nucleated RBC 0.000 (0.0-0.012) X10*3/uL Nucleated RBC % (auto) 0.0 (0.0-0.2) /100WBC Smear Tech's Comments VERIFIED ESR (0-15) MM/HR Hold Blue Top SEE NOTE Sodium 140 (135-145) mmol/L Potassium 3.9 (3.3-5.1) mmol/L Chloride 102 (96-108) mmol/L Carbon Dioxide 30 H (22-29) mmol/L Anion Gap 12 (12-20) BUN 7 L (9-16) mg/dL Creatinine 0.98 (0.5-1.4) mg/dL Estim Creat Clear Calc 135.7 Estimated GFR > 60 Random Glucose 85 (60-115) mg/dL Lactic Acid (0.5-2.0) mmol/L Calcium 9.1 D (8.4-10.2) mg/dL Magnesium 1.9 (1.6-2.6) mg/dL Total Bilirubin 1.3 H (0.0-1.0) mg/dL Direct Bilirubin 0.5 (0.0-0.5) mg/dL AST 38 H (5-37) U/L ALT 25 (0-40) U/L Alkaline Phosphatase 62 (39-117) U/L Troponin I High Sens (<3.5-35.0) ng/L C-Reactive Protein (< or = 0.50) mg/dL Total Protein 7.9 (6.5-8.0) g/dL Albumin 4.2 (3.5-5.0) g/dL Lipase 26 (8-78) U/L Urine Color Urine Appearance Urine pH (5.0-8.0) Ur Specific [place] (1.005-1.025) Urine Protein (NEG-TRACE) MG/DL Urine Glucose (UA) (NEG) MG/DL Urine Ketones (NEG) MG/DL Urine Blood (NEG) Urine Nitrite (NEG) Ur Leukocyte Esterase (NEG) Urine Opiates Screen (Not Detect) Ur Barbiturates Screen (Not Detect) Ur Phencyclidine Scrn (Not Detect) Ur Amphetamines Screen (Not Detect) U Benzodiazepines Scrn (Not Detect) Urine Cocaine Screen (Not Detect) U Marijuana (THC) Screen (Not Detect) Ethyl Alcohol mg/dL COVID-19 (ANABELLA) (Negative) COVID-19 Clin Com 12/25/20 12/25/20 12/25/20 Range/Units 21:26 22:15 22:15 WBC (4.8-10.8) X10*3/uL RBC (4.60-5.80) X10*6/uL Hgb (14.0-18.0) g/dl Hct (42-52) % MCV (80-98) fL MCH (27.0-33.0) pg MCHC (31.0-36.0) g/dl RDW (11.0-16.0) % Plt Count (160-400) X10*3/uL MPV (9.4-12.4) fL Immature Gran % (Auto) (0.0-0.4) % Neut % (Auto) (45-73) % Lymph % (Auto) (20-40) % [place] % (Auto) (2-11) % Eos % (Auto) (0-4) % Baso % (Auto) (0-2) % Lymph # (Auto) (1.2-4.9) X10*3/uL [place] # (Auto) (0.1-1.2) X10*3/uL Eos # (Auto) (0.0-0.4) X10*3/uL Baso # (Auto) (0.0-0.2) X10*3/uL Abs Immat Gran (auto) (0.00-0.03) X10*3/uL Absolute Neuts (auto) (2.0-8.3) X10*3/uL Absolute Nucleated RBC (0.0-0.012) X10*3/uL Nucleated RBC % (auto) (0.0-0.2) /100WBC Smear Tech's Comments ESR (0-15) MM/HR Hold Blue Top Sodium (135-145) mmol/L Potassium (3.3-5.1) mmol/L Chloride (96-108) mmol/L Carbon Dioxide (22-29) mmol/L Anion Gap (12-20) BUN (9-16) mg/dL Creatinine (0.5-1.4) mg/dL Estim Creat Clear Calc Estimated GFR Random Glucose (60-115) mg/dL Lactic Acid (0.5-2.0) mmol/L Calcium (8.4-10.2) mg/dL Magnesium (1.6-2.6) mg/dL Total Bilirubin (0.0-1.0) mg/dL Direct Bilirubin (0.0-0.5) mg/dL AST (5-37) U/L ALT (0-40) U/L Alkaline Phosphatase (39-117) U/L Troponin I High Sens < 3.5 (<3.5-35.0) ng/L C-Reactive Protein (< or = 0.50) mg/dL Total Protein (6.5-8.0) g/dL Albumin (3.5-5.0) g/dL Lipase (8-78) U/L Urine Color Urine Appearance Urine pH (5.0-8.0) Ur Specific [place] (1.005-1.025) Urine Protein (NEG-TRACE) MG/DL Urine Glucose (UA) (NEG) MG/DL Urine Ketones (NEG) MG/DL Urine Blood (NEG) Urine Nitrite (NEG) Ur Leukocyte Esterase (NEG) Urine Opiates Screen (Not Detect) Ur Barbiturates Screen (Not Detect) Ur Phencyclidine Scrn (Not Detect) Ur Amphetamines Screen (Not Detect) U Benzodiazepines Scrn (Not Detect) Urine Cocaine Screen (Not Detect) U Marijuana (THC) Screen (Not Detect) Ethyl Alcohol < 10 mg/dL COVID-19 (ANABELLA) Negative (Negative) COVID-19 Clin Com See Note 12/25/20 12/25/20 12/26/20 Range/Units 23:33 23:33 01:50 WBC (4.8-10.8) X10*3/uL RBC (4.60-5.80) X10*6/uL Hgb (14.0-18.0) g/dl Hct (42-52) % MCV (80-98) fL MCH (27.0-33.0) pg MCHC (31.0-36.0) g/dl RDW (11.0-16.0) % Plt Count (160-400) X10*3/uL MPV (9.4-12.4) fL Immature Gran % (Auto) (0.0-0.4) % Neut % (Auto) (45-73) % Lymph % (Auto) (20-40) % [place] % (Auto) (2-11) % Eos % (Auto) (0-4) % Baso % (Auto) (0-2) % Lymph # (Auto) (1.2-4.9) X10*3/uL [place] # (Auto) (0.1-1.2) X10*3/uL Eos # (Auto) (0.0-0.4) X10*3/uL Baso # (Auto) (0.0-0.2) X10*3/uL Abs Immat Gran (auto) (0.00-0.03) X10*3/uL Absolute Neuts (auto) (2.0-8.3) X10*3/uL Absolute Nucleated RBC (0.0-0.012) X10*3/uL Nucleated RBC % (auto) (0.0-0.2) /100WBC Smear Tech's Comments ESR 6 (0-15) MM/HR Hold Blue Top Sodium (135-145) mmol/L Potassium (3.3-5.1) mmol/L Chloride (96-108) mmol/L Carbon Dioxide (22-29) mmol/L Anion Gap (12-20) BUN (9-16) mg/dL Creatinine (0.5-1.4) mg/dL Estim Creat Clear Calc Estimated GFR Random Glucose (60-115) mg/dL Lactic Acid (0.5-2.0) mmol/L Calcium (8.4-10.2) mg/dL Magnesium (1.6-2.6) mg/dL Total Bilirubin (0.0-1.0) mg/dL Direct Bilirubin (0.0-0.5) mg/dL AST (5-37) U/L ALT (0-40) U/L Alkaline Phosphatase (39-117) U/L Troponin I High Sens (<3.5-35.0) ng/L C-Reactive Protein (< or = 0.50) mg/dL Total Protein (6.5-8.0) g/dL Albumin (3.5-5.0) g/dL Lipase (8-78) U/L Urine Color YELLOW Urine Appearance CLEAR Urine pH 8.5 H (5.0-8.0) Ur Specific [place] 1.015 (1.005-1.025) Urine Protein NEG (NEG-TRACE) MG/DL Urine Glucose (UA) NEG (NEG) MG/DL Urine Ketones NEG (NEG) MG/DL Urine Blood NEG (NEG) Urine Nitrite NEG (NEG) Ur Leukocyte Esterase NEG (NEG) Urine Opiates Screen Not Detected (Not Detect) Ur Barbiturates Screen Not Detected (Not Detect) Ur Phencyclidine Scrn Not Detected (Not Detect) Ur Amphetamines Screen Not Detected (Not Detect) U Benzodiazepines Scrn POSITIVE H (Not Detect) Urine Cocaine Screen Not Detected (Not Detect) U Marijuana (THC) Screen POSITIVE H (Not Detect) Ethyl Alcohol mg/dL COVID-19 ([facility]BELLA) (Negative) COVID-19 Clin Com 12/26/20 12/26/20 Range/Units 01:50 01:51 WBC (4.8-10.8) X10*3/uL RBC (4.60-5.80) X10*6/uL Hgb (14.0-18.0) g/dl Hct (42-52) % MCV (80-98) fL MCH (27.0-33.0) pg MCHC (31.0-36.0) g/dl RDW (11.0-16.0) % Plt Count (160-400) X10*3/uL MPV (9.4-12.4) fL Immature Gran % (Auto) (0.0-0.4) % Neut % (Auto) (45-73) % Lymph % (Auto) (20-40) % [place] % (Auto) (2-11) % Eos % (Auto) (0-4) % Baso % (Auto) (0-2) % Lymph # (Auto) (1.2-4.9) X10*3/uL [place] # (Auto) (0.1-1.2) X10*3/uL Eos # (Auto) (0.0-0.4) X10*3/uL Baso # (Auto) (0.0-0.2) X10*3/uL Abs Immat Gran (auto) (0.00-0.03) X10*3/uL Absolute Neuts (auto) (2.0-8.3) X10*3/uL Absolute Nucleated RBC (0.0-0.012) X10*3/uL Nucleated RBC % (auto) (0.0-0.2) /100WBC Smear Tech's Comments ESR (0-15) MM/HR Hold Blue Top Sodium (135-145) mmol/L Potassium (3.3-5.1) mmol/L Chloride (96-108) mmol/L Carbon Dioxide (22-29) mmol/L Anion Gap (12-20) BUN (9-16) mg/dL Creatinine (0.5-1.4) mg/dL Estim Creat Clear Calc Estimated GFR Random Glucose (60-115) mg/dL Lactic Acid 0.6 (0.5-2.0) mmol/L Calcium (8.4-10.2) mg/dL Magnesium (1.6-2.6) mg/dL Total Bilirubin (0.0-1.0) mg/dL Direct Bilirubin (0.0-0.5) mg/dL AST (5-37) U/L ALT (0-40) U/L Alkaline Phosphatase (39-117) U/L Troponin I High Sens (<3.5-35.0) ng/L C-Reactive Protein 0.47 (< or = 0.50) mg/dL Total Protein (6.5-8.0) g/dL Albumin (3.5-5.0) g/dL Lipase (8-78) U/L Urine Color Urine Appearance Urine pH (5.0-8.0) Ur Specific [place] (1.005-1.025) Urine Protein (NEG-TRACE) MG/DL Urine Glucose (UA) (NEG) MG/DL Urine Ketones (NEG) MG/DL Urine Blood (NEG) Urine Nitrite (NEG) Ur Leukocyte Esterase (NEG) Urine Opiates Screen (Not Detect) Ur Barbiturates Screen (Not Detect) Ur Phencyclidine Scrn (Not Detect) Ur Amphetamines Screen (Not Detect) U Benzodiazepines Scrn (Not Detect) Urine Cocaine Screen (Not Detect) U Marijuana (THC) Screen (Not Detect) Ethyl Alcohol mg/dL COVID-19 ([facility]BELLA) (Negative) COVID-19 Clin Com <Patrica Michel DENTAL PRACTITIONER - Last Filed: 12/26/20 01:51> Lab Results 12/25/20 12/25/20 12/25/20 Range/Units 21:26 21:26 21:26 WBC 8.9 (4.8-10.8) X10*3/uL RBC 5.27 (4.60-5.80) X10*6/uL Hgb 14.1 (14.0-18.0) g/dl Hct 43.3 (42-52) % MCV 82.2 (80-98) fL MCH 26.8 L (27.0-33.0) pg MCHC 32.6 (31.0-36.0) g/dl RDW 14.6 (11.0-16.0) % Plt Count 104 L (160-400) X10*3/uL MPV 9.7 (9.4-12.4) fL Immature Gran % (Auto) 0.2 (0.0-0.4) % Neut % (Auto) 72.2 (45-73) % Lymph % (Auto) 21.5 (20-40) % [place] % (Auto) 5.5 (2-11) % Eos % (Auto) 0.4 (0-4) % Baso % (Auto) 0.2 (0-2) % Lymph # (Auto) 1.9 (1.2-4.9) X10*3/uL [place] # (Auto) 0.5 (0.1-1.2) X10*3/uL Eos # (Auto) 0.0 (0.0-0.4) X10*3/uL Baso # (Auto) 0.0 (0.0-0.2) X10*3/uL Abs Immat Gran (auto) 0.02 (0.00-0.03) X10*3/uL Absolute Neuts (auto) 6.4 (2.0-8.3) X10*3/uL Absolute Nucleated RBC 0.000 (0.0-0.012) X10*3/uL Nucleated RBC % (auto) 0.0 (0.0-0.2) /100WBC Smear Tech's Comments VERIFIED ESR (0-15) MM/HR Hold Blue Top SEE NOTE Sodium 140 (135-145) mmol/L Potassium 3.9 (3.3-5.1) mmol/L Chloride 102 (96-108) mmol/L Carbon Dioxide 30 H (22-29) mmol/L Anion Gap 12 (12-20) BUN 7 L (9-16) mg/dL Creatinine 0.98 (0.5-1.4) mg/dL Estim Creat Clear Calc 135.7 Estimated GFR > 60 Random Glucose 85 (60-115) mg/dL Lactic Acid (0.5-2.0) mmol/L Calcium 9.1 D (8.4-10.2) mg/dL Magnesium 1.9 (1.6-2.6) mg/dL Total Bilirubin 1.3 H (0.0-1.0) mg/dL Direct Bilirubin 0.5 (0.0-0.5) mg/dL AST 38 H (5-37) U/L ALT 25 (0-40) U/L Alkaline Phosphatase 62 (39-117) U/L Troponin I High Sens (<3.5-35.0) ng/L C-Reactive Protein (< or = 0.50) mg/dL Total Protein 7.9 (6.5-8.0) g/dL Albumin 4.2 (3.5-5.0) g/dL Lipase 26 (8-78) U/L Urine Color Urine Appearance Urine pH (5.0-8.0) Ur Specific [place] (1.005-1.025) Urine Protein (NEG-TRACE) MG/DL Urine Glucose (UA) (NEG) MG/DL Urine Ketones (NEG) MG/DL Urine Blood (NEG) Urine Nitrite (NEG) Ur Leukocyte Esterase (NEG) Urine Opiates Screen (Not Detect) Ur Barbiturates Screen (Not Detect) Ur Phencyclidine Scrn (Not Detect) Ur Amphetamines Screen (Not Detect) U Benzodiazepines Scrn (Not Detect) Urine Cocaine Screen (Not Detect) U Marijuana (THC) Screen (Not Detect) Ethyl Alcohol mg/dL COVID-19 ([facility]BELLA) (Negative) COVID-19 Clin Com 12/25/20 12/25/20 12/25/20 Range/Units 21:26 22:15 22:15 WBC (4.8-10.8) X10*3/uL RBC (4.60-5.80) X10*6/uL Hgb (14.0-18.0) g/dl Hct (42-52) % MCV (80-98) fL MCH (27.0-33.0) pg MCHC (31.0-36.0) g/dl RDW (11.0-16.0) % Plt Count (160-400) X10*3/uL MPV (9.4-12.4) fL Immature Gran % (Auto) (0.0-0.4) % Neut % (Auto) (45-73) % Lymph % (Auto) (20-40) % [place] % (Auto) (2-11) % Eos % (Auto) (0-4) % Baso % (Auto) (0-2) % Lymph # (Auto) (1.2-4.9) X10*3/uL [place] # (Auto) (0.1-1.2) X10*3/uL Eos # (Auto) (0.0-0.4) X10*3/uL Baso # (Auto) (0.0-0.2) X10*3/uL Abs Immat Gran (auto) (0.00-0.03) X10*3/uL Absolute Neuts (auto) (2.0-8.3) X10*3/uL Absolute Nucleated RBC (0.0-0.012) X10*3/uL Nucleated RBC % (auto) (0.0-0.2) /100WBC Smear Tech's Comments ESR (0-15) MM/HR Hold Blue Top Sodium (135-145) mmol/L Potassium (3.3-5.1) mmol/L Chloride (96-108) mmol/L Carbon Dioxide (22-29) mmol/L Anion Gap (12-20) BUN (9-16) mg/dL Creatinine (0.5-1.4) mg/dL Estim Creat Clear Calc Estimated GFR Random Glucose (60-115) mg/dL Lactic Acid (0.5-2.0) mmol/L Calcium (8.4-10.2) mg/dL Magnesium (1.6-2.6) mg/dL Total Bilirubin (0.0-1.0) mg/dL Direct Bilirubin (0.0-0.5) mg/dL AST (5-37) U/L ALT (0-40) U/L Alkaline Phosphatase (39-117) U/L Troponin I High Sens < 3.5 (<3.5-35.0) ng/L C-Reactive Protein (< or = 0.50) mg/dL Total Protein (6.5-8.0) g/dL Albumin (3.5-5.0) g/dL Lipase (8-78) U/L Urine Color Urine Appearance Urine pH (5.0-8.0) Ur Specific [place] (1.005-1.025) Urine Protein (NEG-TRACE) MG/DL Urine Glucose (UA) (NEG) MG/DL Urine Ketones (NEG) MG/DL Urine Blood (NEG) Urine Nitrite (NEG) Ur Leukocyte Esterase (NEG) Urine Opiates Screen (Not Detect) Ur Barbiturates Screen (Not Detect) Ur Phencyclidine Scrn (Not Detect) Ur Amphetamines Screen (Not Detect) U Benzodiazepines Scrn (Not Detect) Urine Cocaine Screen (Not Detect) U Marijuana (THC) Screen (Not Detect) Ethyl Alcohol < 10 mg/dL COVID-19 ([facility]BELLA) Negative (Negative) COVID-19 Clin Com See Note 12/25/20 12/25/20 12/26/20 Range/Units 23:33 23:33 01:50 WBC (4.8-10.8) X10*3/uL RBC (4.60-5.80) X10*6/uL Hgb (14.0-18.0) g/dl Hct (42-52) % MCV (80-98) fL MCH (27.0-33.0) pg MCHC (31.0-36.0) g/dl RDW (11.0-16.0) % Plt Count (160-400) X10*3/uL MPV (9.4-12.4) fL Immature Gran % (Auto) (0.0-0.4) % Neut % (Auto) (45-73) % Lymph % (Auto) (20-40) % [place] % (Auto) (2-11) % Eos % (Auto) (0-4) % Baso % (Auto) (0-2) % Lymph # (Auto) (1.2-4.9) X10*3/uL [place] # (Auto) (0.1-1.2) X10*3/uL Eos # (Auto) (0.0-0.4) X10*3/uL Baso # (Auto) (0.0-0.2) X10*3/uL Abs Immat Gran (auto) (0.00-0.03) X10*3/uL Absolute Neuts (auto) (2.0-8.3) X10*3/uL Absolute Nucleated RBC (0.0-0.012) X10*3/uL Nucleated RBC % (auto) (0.0-0.2) /100WBC Smear Tech's Comments ESR 6 (0-15) MM/HR Hold Blue Top Sodium (135-145) mmol/L Potassium (3.3-5.1) mmol/L Chloride (96-108) mmol/L Carbon Dioxide (22-29) mmol/L Anion Gap (12-20) BUN (9-16) mg/dL Creatinine (0.5-1.4) mg/dL Estim Creat Clear Calc Estimated GFR Random Glucose (60-115) mg/dL Lactic Acid (0.5-2.0) mmol/L Calcium (8.4-10.2) mg/dL Magnesium (1.6-2.6) mg/dL Total Bilirubin (0.0-1.0) mg/dL Direct Bilirubin (0.0-0.5) mg/dL AST (5-37) U/L ALT (0-40) U/L Alkaline Phosphatase (39-117) U/L Troponin I High Sens (<3.5-35.0) ng/L C-Reactive Protein (< or = 0.50) mg/dL Total Protein (6.5-8.0) g/dL Albumin (3.5-5.0) g/dL Lipase (8-78) U/L Urine Color YELLOW Urine Appearance CLEAR Urine pH 8.5 H (5.0-8.0) Ur Specific [place] 1.015 (1.005-1.025) Urine Protein NEG (NEG-TRACE) MG/DL Urine Glucose (UA) NEG (NEG) MG/DL Urine Ketones NEG (NEG) MG/DL Urine Blood NEG (NEG) Urine Nitrite NEG (NEG) Ur Leukocyte Esterase NEG (NEG) Urine Opiates Screen Not Detected (Not Detect) Ur Barbiturates Screen Not Detected (Not Detect) Ur Phencyclidine Scrn Not Detected (Not Detect) Ur Amphetamines Screen Not Detected (Not Detect) U Benzodiazepines Scrn POSITIVE H (Not Detect) Urine Cocaine Screen Not Detected (Not Detect) U Marijuana (THC) Screen POSITIVE H (Not Detect) Ethyl Alcohol mg/dL COVID-19 (ANABELLA) (Negative) COVID-19 Clin Com 12/26/20 12/26/20 Range/Units 01:50 01:51 WBC (4.8-10.8) X10*3/uL RBC (4.60-5.80) X10*6/uL Hgb (14.0-18.0) g/dl Hct (42-52) % MCV (80-98) fL MCH (27.0-33.0) pg MCHC (31.0-36.0) g/dl RDW (11.0-16.0) % Plt Count (160-400) X10*3/uL MPV (9.4-12.4) fL Immature Gran % (Auto) (0.0-0.4) % Neut % (Auto) (45-73) % Lymph % (Auto) (20-40) % [place] % (Auto) (2-11) % Eos % (Auto) (0-4) % Baso % (Auto) (0-2) % Lymph # (Auto) (1.2-4.9) X10*3/uL [place] # (Auto) (0.1-1.2) X10*3/uL Eos # (Auto) (0.0-0.4) X10*3/uL Baso # (Auto) (0.0-0.2) X10*3/uL Abs Immat Gran (auto) (0.00-0.03) X10*3/uL Absolute Neuts (auto) (2.0-8.3) X10*3/uL Absolute Nucleated RBC (0.0-0.012) X10*3/uL Nucleated RBC % (auto) (0.0-0.2) /100WBC Smear Tech's Comments ESR (0-15) MM/HR Hold Blue Top Sodium (135-145) mmol/L Potassium (3.3-5.1) mmol/L Chloride (96-108) mmol/L Carbon Dioxide (22-29) mmol/L Anion Gap (12-20) BUN (9-16) mg/dL Creatinine (0.5-1.4) mg/dL Estim Creat Clear Calc Estimated GFR Random Glucose (60-115) mg/dL Lactic Acid 0.6 (0.5-2.0) mmol/L Calcium (8.4-10.2) mg/dL Magnesium (1.6-2.6) mg/dL Total Bilirubin (0.0-1.0) mg/dL Direct Bilirubin (0.0-0.5) mg/dL AST (5-37) U/L ALT (0-40) U/L Alkaline Phosphatase (39-117) U/L Troponin I High Sens (<3.5-35.0) ng/L C-Reactive Protein 0.47 (< or = 0.50) mg/dL Total Protein (6.5-8.0) g/dL Albumin (3.5-5.0) g/dL Lipase (8-78) U/L Urine Color Urine Appearance Urine pH (5.0-8.0) Ur Specific [place] (1.005-1.025) Urine Protein (NEG-TRACE) MG/DL Urine Glucose (UA) (NEG) MG/DL Urine Ketones (NEG) MG/DL Urine Blood (NEG) Urine Nitrite (NEG) Ur Leukocyte Esterase (NEG) Urine Opiates Screen (Not Detect) Ur Barbiturates Screen (Not Detect) Ur Phencyclidine Scrn (Not Detect) Ur Amphetamines Screen (Not Detect) U Benzodiazepines Scrn (Not Detect) Urine Cocaine Screen (Not Detect) U Marijuana (THC) Screen (Not Detect) Ethyl Alcohol mg/dL COVID-19 ([facility]) (Negative) COVID-19 Clin Com <Gab Carter MD - Last Filed: 12/26/20 03:16> Imaging Data Chest x-ray: Attestation: I personally reviewed and interpreted this imaging study as follows: <Patrica Michel NP - Last Filed: 12/26/20 01:51> Radiologist's impression: EXAMINATION: XR CHEST CLINICAL INFORMATION: Fever COMPARISON: 06/24/2018 TECHNIQUE: Frontal view of the chest was obtained. FINDINGS: Cardiac leads overlie the chest. The lungs are well expanded. Bronchial wall thickening present. There is no focal consolidation, edema, or effusion. No pneumothorax. The cardiomediastinal silhouette is within normal limits. No acute osseous abnormality. XR/XR chest 1V IMPRESSION: No dense consolidation. Bronchial wall thickening can be seen with a small airways process such as asthma or atypical/viral infection. <Patrica Michel NP - Last Filed: 12/26/20 01:51> CT scan - abdomen: Attestation: I personally reviewed and interpreted this imaging study as follows: <Patrica Michel NP - Last Filed: 12/26/20 01:51> Radiologist's impression: EXAMINATION: CT ABDOMEN AND PELVIS WITH CONTRAST CLINICAL INFORMATION: Abdominal pain. Known cholelithiasis. Note: No gallstones seen on the ultrasound study of 12/14/2020 or the abdomen MR study of 10/12/2018. COMPARISON: CT abdomen pelvis 12/23/2020. Ultrasound of abdomen 12/14/2020. MR abdomen 10/12/2018 TECHNIQUE: Multidetector volumetric images were obtained from the superior aspect of the liver through the pubic symphysis following administration 85 mL of Omnipaque 350 intravenous contrast. Sagittal and coronal reformatted images were obtained on the technologist's workstation. Oral contrast: No This CT examination was performed using dose optimization techniques as appropriate, variously including the following: *Automated exposure control *Adjustment of mA and/or kV according to patient size (this includes techniques or standardized protocols for targeted exams where dose is matched to indication/reason for exam; i.e. extremities or head) *Use of iterative reconstruction technique DLP: 923 mGy-cm FINDINGS: LUNG BASES: The visualized lung bases are unremarkable. LIVER, GALLBLADDER, AND BILIARY TREE: Mildly cirrhotic appearing liver. Micronodular liver surface. No focal liver lesion. There is mild intrahepatic and extra hepatic bile duct dilatation. Gallbladder is mildly distended. No edema around the gallbladder. There is dilatation of the extrahepatic CBD measuring 1.2 cm at the bladimir hepatis. This is unchanged since prior CAT scan 12/23/2020. CBD on the ultrasound abdomen study of 12/14/2020 measured 0.7 cm. No calcified stone seen within the bile ducts. PANCREAS: Unremarkable. SPLEEN: Spleens enlarged measuring 17 cm AP. ADRENAL GLANDS: Unremarkable. KIDNEYS AND URETERS: The kidneys are normal in size, shape, and attenuation. No hydronephrosis, hydroureter, or calculi seen. No perinephric stranding. BLADDER: Unremarkable. GASTROINTESTINAL TRACT: There are scattered diverticula of the colon. There is no diverticulitis. There is no bowel wall thickening /edema. There is no bowel obstruction. There is a moderate to large volume of stool in the colon. The appendix is surgically absent . The small bowel loops are unremarkable. The stomach is normal. There is no hiatal hernia. ABDOMINAL WALL: No significant hernia is appreciated. LYMPH NODES: Normal. VASCULAR: Prominent varices in the left upper quadrant PELVIC VISCERA: Unremarkable. OSSEOUS STRUCTURES: Degenerative vacuum changes at L5-S1. Mild degenerative lipping at the anterior endplates of the thoracic vertebral bodies. Stable small bone island left iliac wing. CT/CT abdomen pelvis w con IMPRESSION: 1. Mild intrapelvic bile duct dilatation. Dilatation of the CBD to a diameter of 1.2 cm. This has increased dilatation since the ultrasound abdomen study of 12/14/2020. 2. Cirrhosis of liver. Splenomegaly. Left upper quadrant varices. 3. Scattered diverticula colon. No acute changes of the bowel. <Patrica Michel NP - Last Filed: 12/26/20 01:51> ECG Data ECG #1: Attestation: I personally reviewed and interpreted this ECG as follows: <Patrica Michel NP - Last Filed: 12/26/20 01:51> ECG interpretation date: 12/25/20 <Patrica Michel NP - Last Filed: 12/26/20 01:51> ECG interpretation time: :59 <Patrica Michel NP - Last Filed: 12/26/20 01:51> Prior ECG tracings: available for review <RONNY Esteban Last Filed: 12/26/20 01:51> Interpretation: Vent. rate 93 BPM AR interval 164 ms QRS duration 94 ms QT/QTc 384/477 ms P-R-T axes 31 6 19 Normal sinus rhythm Possible Left atrial enlargement Borderline ECG When compared with ECG of 25-JUN-2018 09:34, No significant change was found <RONNY Estebna Last Filed: 12/26/20 01:51> Discharge Plan Discharge Prescriptions: No Action doxepin 50 mg capsule 50 mg PO BEDTIME Qty: 30 RF: 1 <Patrica Michel NP - Last Filed: 12/26/20 01:51>
--- NOTE | 2020-12-25 21:50 | ECG_ITS ---
Test Reason : WEAKNESS Blood Pressure : / mmHG Vent. Rate : 093 BPM Atrial Rate : 093 BPM P-R Int : 164 ms QRS Dur : 094 ms QT Int : 384 ms P-R-T Axes : 031 006 019 degrees QTc Int : 477 ms Normal sinus rhythm Possible Left atrial enlargement Borderline ECG When compared with ECG of 25-JUN-2018 09:34, No significant change was found Referred By: Patrica Michel Electronically Signed By:Wale Kaba
[2020-12-25 21:58] LABS: COVID-19 Test Negative (Negative)
[2020-12-25 22:00] VITALS: BP 107/58; PULSE 93; RESP 22; TEMP 38.9; O2SAT 96
[2020-12-25 22:02] LABS: Alanine Aminotransferase 25 U/L (0-40); Albumin Level 4.2 g/dL (3.5-5.0); Alkaline Phosphatase 62 U/L (39-117); Anion Gap 12 (12-20); Aspartate Amino Transferase 38 U/L (5-37); Bilirubin Direct 0.5 mg/dL (0.0-0.5); Bilirubin Total 1.3 mg/dL (0.0-1.0); Blood Urea Nitrogen 7 mg/dL (9-16); Calcium 9.1 mg/dL (8.4-10.2); Carbon Dioxide 30 mmol/L (22-29); Chloride 102 mmol/L (96-108); Creatinine Clr Calc Pharmacy 135.7; Estimated Glomerular Filt Rate > 60; Glucose Random 85 mg/dL (60-115); Lipase 26 U/L (8-78); Magnesium 1.9 mg/dL (1.6-2.6); Potassium 3.9 mmol/L (3.3-5.1); Sodium 140 mmol/L (135-145); Total Protein 7.9 g/dL (6.5-8.0)
[2020-12-25] MEDS: 0.9 % Sodium Chloride 3,810.18 ML 3810.18 ML IV (22:20)
[2020-12-25 22:45] LABS: Ethanol < 10 mg/dL
[2020-12-25 22:54] LABS: Troponin-I High Sensitivity < 3.5 ng/L (<3.5-35.0)
[2020-12-25] MEDS: Ketorolac Tromethamine 30 MG/ML VIAL IVPUSH (23:08)
[2020-12-25] MEDS: Acetaminophen 325 MG TABLET 975 MG PO (23:08)
[2020-12-25] MEDS: iohexoL 350 MG/ML 100 ML INFUS..BTL 85 ML IV (23:21)
[2020-12-25 23:59] LABS: Glucose Urine UA NEG (NEG); Leukocyte Esterase Urine NEG (NEG); Nitrite Urine NEG (NEG); PH 8.5 (5.0-8.0); Specific Gravity - Urine 1.015 (1.005-1.025); Urine Blood NEG (NEG); Urine Ketones NEG (NEG); Urine Protein NEG (NEG-TRACE)
[2020-12-26] VITALS: BP 124/79; PULSE 84; RESP 16; TEMP 36.4; O2SAT 95
[2020-12-26] LABS: Appearance Urine CLEAR; Color Urine YELLOW
[2020-12-26 00:29] LABS: Amphetamine Screen Urine Not Detected (Not Detect); Barbiturates, Urine Not Detected (Not Detect); Benzodiazepines Screen Urine POSITIVE (Not Detect); Cannabinoid Screen Urine POSITIVE (Not Detect); Cocaine Screen Urine Not Detected (Not Detect); Opiate Screen Urine Not Detected (Not Detect); Phencyclidine Screen Urine Not Detected (Not Detect)
[2020-12-26 01:23] VITALS: TEMP 38.2
[2020-12-26 01:54] VITALS: BP 110/69; PULSE 80; RESP 16; TEMP 37.2; O2SAT 92
--- NOTE | 2020-12-26 01:57 | PC.NURSE ---
RN YESI AWARE OF PATIENT LOW 02 OF 92%
[2020-12-26 02:00] VITALS: BP 113/74; PULSE 81; RESP 14; O2SAT 92
[2020-12-26 02:21] LABS: Lactic Acid 0.6 mmol/L (0.5-2.0)
[2020-12-26 02:29] LABS: Erythrocyte Sedimentation Rate 6 MM/HR (0-15)
[2020-12-26 02:33] LABS: C Reactive Protein 0.47 mg/dL (< or = 0.50)
[2020-12-26] MEDS: Azithromycin 500 MG TABLET PO (03:40)
[2020-12-26] MEDS: Amoxicillin/Potassium Clav 875 MG TABLET PO (03:40)
== END 2020-12-26 04:47 | disposition home or self-care (01) ==
PROVIDERS: Emergency Medicine; Nurse Practitioner Family; Emergency Provider Emergency Medicine Emergency Medical Services; PCP Internal Medicine
DX: J40 Bronchitis, not specified as acute or chronic (principal); R50.9 Fever, unspecified; R53.83 Other fatigue; R10.11 Right upper quadrant pain; R00.0 Tachycardia, unspecified; K80.20 Calculus of gallbladder without cholecystitis without obstruction; Z20.822 Contact with and (suspected) exposure to COVID-19; F10.10 Alcohol abuse, uncomplicated; F11.90 Opioid use, unspecified, uncomplicated; F17.210 Nicotine dependence, cigarettes, uncomplicated; K74.60 Unspecified cirrhosis of liver; Z86.19 Personal history of other infectious and parasitic diseases
CPT/HCPCS: 36415; 71045; 74177; 80048; 80076; 80307; 80320; 81003; 83605; 83690; 83735; 84484; 85025; 85652; 86140; 87040; 87635; 93005; 96361; 96374; 99284; 99285; J1885; Q9967

== ENCOUNTER 2021-01-03 07:04 | Emergency (ER) | payer OTHER, SELFPAY ==
[2021-01-03 07:32] VITALS: BP 127/81; PULSE 86; RESP 16; TEMP 37.4; O2SAT 98; BMI 38.2
--- NOTE | 2021-01-03 07:40 | ED.ABDPAIN ---
HPI - Abdominal Pain General Chief Complaint: Abdominal Pain Stated Complaint: abd pain Time Seen by Provider: 01/03/21 07:40 Source: patient Mode of arrival: ambulatory Limitations: no limitations History of Present Illness HPI narrative: Patient with a lot of diarrhea and pandya stool. Had outpatient work up that included a CT with dilated CBD. Patient states increased confusion MD elicited complaint: abdominal pain Pertinent past history: gastrointestinal bleeding and other (cirrhosis, gastric varices, ) Onset (ago): year(s) Pain Consistency: intermittent Location: epigastric Severity: mild Quality: cramping Exacerbating factors: nothing Relieving factors: nothing Related Data Previous Rx's Medication Instructions Recorded doxepin 50 mg capsule 50 mg PO BEDTIME #30 cap 11/06/20 amoxicillin-pot clavulanate 1 tab PO Q12H 5 Days #10 tab 12/26/20 [Augmentin] azithromycin [Zithromax Z-Steve] See Rx Instructions PO .COMPLEX #6 12/26/20 tab Allergies Allergy/AdvReac Type Severity Reaction Status Date / Time No Known Allergies Allergy Verified 12/13/20 12:30 [No Known Allergies*] Review of Systems Constitutional: Reports no additional constitutional complaints Eyes: Reports no additional eye complaints Denies dizziness Cardiovascular: Reports no additional cardiovascular complaints Respiratory: Reports as per HPI Gastrointestinal: Reports no additional gastrointestinal complaints Musculoskeletal: Reports no additional musculoskeletal complaints Skin/Breast: Denies rash Reports system reviewed and no additional complaints, except as documented, Denies dizziness and Denies Sensory deficit (Neuro) Psychiatric: Denies anxiety Physical Exam Vital Signs: Vital Signs: Last Vital Signs Temp 97.9 F 01/03/21 11:22 Pulse 73 01/03/21 11:22 Resp 16 01/03/21 11:22 BP 123/58 L 01/03/21 11:22 Pulse Ox 96 01/03/21 11:22 Body Mass Index 38.2 Const: General: healthy appearing Nutritional Appearance: average body habitus Orientation/consciousness: oriented to person and patient oriented x3 Limitations: no limitations HENMT: Head: Yes normal to inspection Ears: external ears normal General nose exam: Normal external nose present Mouth: Normal oral and palatal mucosa present and oropharynx normal Throat: Yes posterior oropharynx normal Eyes: General: appearance normal, both eyes and all related structures Neck: Other: supple Neck: Yes normal visual inspection Chest: Chest palpation & inspection: normal inspection of the chest Resp: Auscultation: clear to auscultation bilaterally Cardio: Jugular venous distension: no JVD Rate: regular rate Rhythm: regular rhythm Heart sounds: S1 normal heart sound present and S2 normal heart sound present GI: Inspection: Yes normal to inspection Palpation (GI): Soft to palpation, nontender and No hepatosplenomegaly present Auscultation: normal bowel sounds : General: Yes no CVA tenderness Back/Spine/Pelvis: Back: no CVA tenderness Skin: General skin exam: no rashes or lesions noted Neuro: General: oriented to person and patient oriented x3 Cranial nerves: Yes CN's II-XII intact bilaterally Motor exam (neuro): 5/5 motor strength present throughout Sensory Exam: No Sensory deficit (Neuro) Extrem: General: Yes normal to inspection Psych: Appearance: grossly normal Course Course Course Narrative: Discussed with Dr. Pinedo, no need for ERCP, labs normal today, ammonia is not high. Will dc home MDM - Abdominal Pain MDM Narrative Medical decision making narrative: Patient with Cirrhosis but currently number looks stable discussed CBD dilation with GI no need for urgent ERCP. Will dc home Lab Data Result diagrams: 01/03/21 08:56 01/03/21 08:56 Labs: Lab Results 01/03/21 01/03/21 01/03/21 Range/Units 08:06 08:06 08:56 WBC 4.6 L (4.8-10.8) X10*3/uL RBC 4.81 (4.60-5.80) X10*6/uL Hgb 13.0 L (14.0-18.0) g/dl Hct 39.6 L (42-52) % MCV 82.3 (80-98) fL MCH 27.0 (27.0-33.0) pg MCHC 32.8 (31.0-36.0) g/dl RDW 14.8 (11.0-16.0) % Plt Count 91 L (160-400) X10*3/uL MPV 10.5 (9.4-12.4) fL Immature Gran % (Auto) 0.2 (0.0-0.4) % Neut % (Auto) 70.7 (45-73) % Lymph % (Auto) 22.6 (20-40) % [place] % (Auto) 5.9 (2-11) % Eos % (Auto) 0.2 (0-4) % Baso % (Auto) 0.4 (0-2) % Lymph # (Auto) 1.0 L (1.2-4.9) X10*3/uL [place] # (Auto) 0.3 (0.1-1.2) X10*3/uL Eos # (Auto) 0.0 (0.0-0.4) X10*3/uL Baso # (Auto) 0.0 (0.0-0.2) X10*3/uL Abs Immat Gran (auto) 0.01 (0.00-0.03) X10*3/uL Absolute Neuts (auto) 3.3 (2.0-8.3) X10*3/uL Absolute Nucleated RBC 0.000 (0.0-0.012) X10*3/uL Nucleated RBC % (auto) 0.0 (0.0-0.2) /100WBC Sodium (135-145) mmol/L Potassium (3.3-5.1) mmol/L Chloride (96-108) mmol/L Carbon Dioxide (22-29) mmol/L Anion Gap (12-20) BUN (9-16) mg/dL Creatinine (0.5-1.4) mg/dL Estim Creat Clear Calc Estimated GFR Random Glucose (60-115) mg/dL Calcium (8.4-10.2) mg/dL Total Bilirubin (0.0-1.0) mg/dL Direct Bilirubin (0.0-0.5) mg/dL AST (5-37) U/L ALT (0-40) U/L Alkaline Phosphatase (39-117) U/L Ammonia 40 (13-55) umol/L Total Protein (6.5-8.0) g/dL Albumin (3.5-5.0) g/dL Lipase (8-78) U/L Urine Color YELLOW Urine Appearance CLEAR Urine pH 6.0 (5.0-8.0) Ur Specific [place] 1.020 (1.005-1.025) Urine Protein NEG (NEG-TRACE) MG/DL Urine Glucose (UA) NEG (NEG) MG/DL Urine Ketones NEG (NEG) MG/DL Urine Blood NEG (NEG) Urine Nitrite NEG (NEG) Ur Leukocyte Esterase NEG (NEG) 01/03/21 Range/Units 08:56 WBC (4.8-10.8) X10*3/uL RBC (4.60-5.80) X10*6/uL Hgb (14.0-18.0) g/dl Hct (42-52) % MCV (80-98) fL MCH (27.0-33.0) pg MCHC (31.0-36.0) g/dl RDW (11.0-16.0) % Plt Count (160-400) X10*3/uL MPV (9.4-12.4) fL Immature Gran % (Auto) (0.0-0.4) % Neut % (Auto) (45-73) % Lymph % (Auto) (20-40) % [place] % (Auto) (2-11) % Eos % (Auto) (0-4) % Baso % (Auto) (0-2) % Lymph # (Auto) (1.2-4.9) X10*3/uL [place] # (Auto) (0.1-1.2) X10*3/uL Eos # (Auto) (0.0-0.4) X10*3/uL Baso # (Auto) (0.0-0.2) X10*3/uL Abs Immat Gran (auto) (0.00-0.03) X10*3/uL Absolute Neuts (auto) (2.0-8.3) X10*3/uL Absolute Nucleated RBC (0.0-0.012) X10*3/uL Nucleated RBC % (auto) (0.0-0.2) /100WBC Sodium 140 (135-145) mmol/L Potassium 4.0 (3.3-5.1) mmol/L Chloride 106 (96-108) mmol/L Carbon Dioxide 28 (22-29) mmol/L Anion Gap 10 L (12-20) BUN 7 L (9-16) mg/dL Creatinine 0.81 (0.5-1.4) mg/dL Estim Creat Clear Calc 167.2 Estimated GFR > 60 Random Glucose 98 (60-115) mg/dL Calcium 8.5 D (8.4-10.2) mg/dL Total Bilirubin 0.8 (0.0-1.0) mg/dL Direct Bilirubin 0.4 (0.0-0.5) mg/dL AST 38 H (5-37) U/L ALT 24 (0-40) U/L Alkaline Phosphatase 50 (39-117) U/L Ammonia (13-55) umol/L Total Protein 6.9 (6.5-8.0) g/dL Albumin 3.7 (3.5-5.0) g/dL Lipase 28 (8-78) U/L Urine Color Urine Appearance Urine pH (5.0-8.0) Ur Specific [place] (1.005-1.025) Urine Protein (NEG-TRACE) MG/DL Urine Glucose (UA) (NEG) MG/DL Urine Ketones (NEG) MG/DL Urine Blood (NEG) Urine Nitrite (NEG) Ur Leukocyte Esterase (NEG) Discharge Plan Discharge Clinical Impression: Alcoholism Cirrhosis Qualifiers: Hepatic cirrhosis type: alcoholic cirrhosis Ascites presence: without ascites Qualified Code(s): K70.30 - Alcoholic cirrhosis of liver without ascites Patient Disposition: Home, Self-Care Instructions: Alcohol Dependence (ED), Cirrhosis (ED) Prescriptions: No Action doxepin 50 mg capsule 50 mg PO BEDTIME Qty: 30 RF: 1 amoxicillin-pot clavulanate [Augmentin] 500-125 mg tablet 1 tab PO Q12H 5 Days Qty: 10 RF: 0 azithromycin [Zithromax Z-Steve] 250 mg tablet See Rx Instructions PO .COMPLEX Qty: 6 RF: 0 Referrals: Juan Miguel Asif MD [Primary Care Provider] - 5 days Jj Pinedo [Physician] - 10 days [facility] Past Medical History Medical History Alcoholism Alcoholism and drug addiction in family Cirrhosis Major depression Pre-op examination Surgical History History of appendectomy Family History Family History Father No problems noted. Mother Chronic mental illness Family/Other Depression Substance abuse Social History Social History Alcohol intake: former Smoking Status: Current every day smoker Cigarettes Per Day: 4 Advance Directives: Yes Advance Directives on File: Yes Advance Directives Date on File: 01/03/21
[2021-01-03 08:22] VITALS: BP 127/81; PULSE 86; RESP 18; TEMP 36.8; O2SAT 98
[2021-01-03 08:31] LABS: Appearance Urine CLEAR; Color Urine YELLOW; Glucose Urine UA NEG (NEG); Leukocyte Esterase Urine NEG (NEG); Nitrite Urine NEG (NEG); Urine Blood NEG (NEG); Urine Ketones NEG (NEG); Urine Protein NEG (NEG-TRACE)
[2021-01-03 09:05] LABS: MANUAL DIFF FLAG NO
[2021-01-03 09:07] LABS: Ammonia 40 umol/L (13-55)
[2021-01-03 09:09] LABS: Basophils Percent Auto 0.4 % (0-2); Eosinophils Percent Auto 0.2 % (0-4); Hematocrit 39.6 % (42-52); Imm Gran Abs Auto 0.01 X10*3/uL (0.00-0.03); Imm Gran Pct Auto 0.2 % (0.0-0.4); Lymphocytes Percent Auto 22.6 % (20-40); Mean Corpuscular HGB Conc 32.8 g/dl (31.0-36.0); Mean Corpuscular Volume 82.3 fL (80-98); Mean Platelet Volume 10.5 fL (9.4-12.4); Monocytes Absolute Auto 0.3 X10*3/uL (0.1-1.2); Monocytes Percent Auto 5.9 % (2-11); Neutrophils Absolute Auto 3.3 X10*3/uL (2.0-8.3); Neutrophils Percent Auto 70.7 % (45-73); Red Blood Count 4.81 X10*6/uL (4.60-5.80); Red Cell Distribution Width 14.8 % (11.0-16.0); White Blood Count 4.6 X10*3/uL (4.8-10.8)
[2021-01-03 09:15] LABS: Platelet Count 91 X10*3/uL (160-400)
[2021-01-03 09:42] LABS: Alanine Aminotransferase 24 U/L (0-40); Albumin Level 3.7 g/dL (3.5-5.0); Alkaline Phosphatase 50 U/L (39-117); Anion Gap 10 (12-20); Aspartate Amino Transferase 38 U/L (5-37); Bilirubin Direct 0.4 mg/dL (0.0-0.5); Bilirubin Total 0.8 mg/dL (0.0-1.0); Blood Urea Nitrogen 7 mg/dL (9-16); Calcium 8.5 mg/dL (8.4-10.2); Carbon Dioxide 28 mmol/L (22-29); Chloride 106 mmol/L (96-108); Creatinine Clr Calc Pharmacy 167.2; Estimated Glomerular Filt Rate > 60; Glucose Random 98 mg/dL (60-115); Lipase 28 U/L (8-78); Sodium 140 mmol/L (135-145); Total Protein 6.9 g/dL (6.5-8.0)
[2021-01-03 11:22] VITALS: BP 123/58; PULSE 73; RESP 16; TEMP 36.6; O2SAT 96
[2021-01-03] MEDS: PHENobarb/Hyoscy/Atropine/Scop 10 ML ELIXIR PO (12:03)
== END 2021-01-03 12:06 | disposition home or self-care (01) ==
PROVIDERS: Emergency Provider Emergency Medicine; PCP Internal Medicine
DX: K70.30 Alcoholic cirrhosis of liver without ascites (principal); R10.13 Epigastric pain; F10.20 Alcohol dependence, uncomplicated; Y90.9 Presence of alcohol in blood, level not specified
CPT/HCPCS: 36415; 80048; 80076; 81003; 82140; 83690; 85025; 99202; 99283; 99284

== ENCOUNTER 2021-01-29 14:56 | Emergency (ER) | payer OTHER, SELFPAY ==
[2021-01-29 15:19] VITALS: BP 120/55; PULSE 99; RESP 18; O2SAT 88; O2SAT 94; BMI 35.6
--- NOTE | 2021-01-29 15:45 | ED.GENADULT ---
HPI - General Adult General Chief complaint: ETOH/Substance Use Stated complaint: LETHARGY,WEAKNESS,DENIES SUB ABUSE Time Seen by Provider: 01/29/21 15:35 Source: patient and RN notes reviewed Mode of arrival: EMS Limitations: altered mental status History of Present Illness HPI narrative: 45-year-old male with a past medical history of liver cirrhosis, major depression and history of EtOH abuse here today with altered mental status. Patient was brought by EMS services 2 of Narcan given and patient woke up. Patient admits to heroin use. Questioning if patient drink alcohol as well. Patient very sleepy difficult to get any history or information from him. Denies any SI or HI. Related Data Previous Rx's Medication Instructions Recorded amoxicillin-pot clavulanate 1 tab PO Q12H 5 Days #10 tab 12/26/20 [Augmentin] azithromycin [Zithromax Z-Steve] See Rx Instructions PO .COMPLEX #6 12/26/20 tab carbamide peroxide 6.5 % ear drops 5 drp OTIC (EAR) LEFT BID 4 Days 01/09/21 #15 ml doxepin 50 mg capsule 50 mg PO BEDTIME #30 cap 01/10/21 Allergies Allergy/AdvReac Type Severity Reaction Status Date / Time No Known Allergies Allergy Verified 01/09/21 08:41 [No Known Allergies*] Review of Systems Review of Systems: Yes all other systems are reviewed and are negative Constitutional: Constitutional: Denies weight gain and Denies weight loss Cardiovascular: Cardiovascular: Reports no additional cardiovascular complaints Respiratory: Respiratory: Reports no additional respiratory complaints Gastrointestinal: Gastrointestinal: Denies abdominal pain, Denies belching, Denies melena, Denies bloating, Denies change in bowel habits, Denies dyspepsia, Denies heartburn, Denies nausea and Denies vomiting Neurologic: Reports system reviewed and no additional complaints, except as documented Psychiatric: Psychiatric: Reports no additional psychiatric complaints PMFSH Past Medical History Medical History Alcoholism Alcoholism and drug addiction in family Cirrhosis Liver cirrhosis Major depression Pre-op examination Surgical History History of appendectomy Family History Family History Father No problems noted. Mother Chronic mental illness Family/Other Depression Substance abuse Social History Social History Alcohol intake: former Smoking Status: Current every day smoker Cigarettes Per Day: 4 Advance Directives: No Advance Directives Information Provided: No Advance Directives Date on File: 01/03/21 Physical Exam Vital Signs: Vital Signs: Last Vital Signs Temp 97.4 F 01/29/21 19:04 Pulse 87 01/29/21 19:04 Resp 13 01/29/21 19:04 BP 105/62 01/29/21 19:04 Pulse Ox 94 01/29/21 19:04 Body Mass Index 35.6 Const: General: no acute distress, well developed and intoxicated appearing Nutritional Appearance: well nourished Limitations: altered mental status (Due to heroin) Neck: Neck: Yes normal visual inspection, Yes full ROM and Yes trachea midline Thyroid: Thyroid normal Resp: Auscultation: clear to auscultation bilaterally Cardio: Rate: regular rate Rhythm: regular rhythm GI: Inspection: Yes normal to inspection and No distended Palpation (GI): No hepatosplenomegaly present Auscultation: normal bowel sounds Skin: General skin exam: elasticity normal, turgor normal and dry skin Course Course Course Narrative: 45-year-old male brought in by ambulance. Narcan given in the field with results. Patient is not a good historian as he continues to fall back asleep. His heart rate is 82, O2 saturation is 98 % lung sounds clear. Will order tox screen, ETOH, salicylate and Tylenol levels. Will continue to monitor, denies SI or HI Reevaluation(s) Reevaluation #1: Patient continues to be sleepy, 0.4 mg Narcan ordered. Exam negative for arrhythmia, lung sounds clear. Time: 17:22 Time: 19:37 Reevaluation #3: Patient was medicated with Narcan, pulled out his IV. Continue to monitor. Patient reports no chest pain, SOB Time: 20:24 Additional Reevaluation(s): Patient re-evaluated. He reports that he is feeling much better. He will try to call his father to see if he can take him home. Patient was offered detox, however declined and wants to go home to his dad. Denies SI or HI Medical Decision Making Lab Data Result diagrams: 01/29/21 16:30 01/29/21 18:59 Labs: Lab Results 01/29/21 01/29/21 01/29/21 Range/Units 16:30 16:30 16:30 WBC 5.6 (4.8-10.8) X10*3/uL RBC 4.70 (4.60-5.80) X10*6/uL Hgb 12.8 L (14.0-18.0) g/dl Hct 38.4 L (42-52) % MCV 81.7 (80-98) fL MCH 27.2 (27.0-33.0) pg MCHC 33.3 (31.0-36.0) g/dl RDW 14.5 (11.0-16.0) % Plt Count 70 L (160-400) X10*3/uL MPV 11.3 (9.4-12.4) fL Immature Gran % (Auto) 0.4 (0.0-0.4) % Neut % (Auto) 65.3 (45-73) % Lymph % (Auto) 27.7 (20-40) % Boone % (Auto) 5.1 (2-11) % Eos % (Auto) 1.1 (0-4) % Baso % (Auto) 0.4 (0-2) % Lymph # (Auto) 1.6 (1.2-4.9) X10*3/uL Boone # (Auto) 0.3 (0.1-1.2) X10*3/uL Eos # (Auto) 0.1 (0.0-0.4) X10*3/uL Baso # (Auto) 0.0 (0.0-0.2) X10*3/uL Abs Immat Gran (auto) 0.02 (0.00-0.03) X10*3/uL Absolute Neuts (auto) 3.7 (2.0-8.3) X10*3/uL Absolute Nucleated RBC 0.000 (0.0-0.012) X10*3/uL Nucleated RBC % (auto) 0.0 (0.0-0.2) /100WBC Smear Tech's Comments VERIFIED Sodium (135-145) mmol/L Potassium (3.3-5.1) mmol/L Chloride (96-108) mmol/L Carbon Dioxide (22-29) mmol/L Anion Gap (12-20) BUN (9-16) mg/dL Creatinine (0.5-1.4) mg/dL Estim Creat Clear Calc Estimated GFR Random Glucose (60-115) mg/dL Calcium (8.4-10.2) mg/dL Total Bilirubin (0.0-1.0) mg/dL AST (5-37) U/L ALT (0-40) U/L Alkaline Phosphatase (39-117) U/L Total Protein (6.5-8.0) g/dL Albumin (3.5-5.0) g/dL Salicylates < 5.0 L (15-30) mg/dL Acetaminophen < 1 (<30) mcg/mL Ethyl Alcohol < 10 mg/dL 01/29/21 Range/Units 18:59 WBC (4.8-10.8) X10*3/uL RBC (4.60-5.80) X10*6/uL Hgb (14.0-18.0) g/dl Hct (42-52) % MCV (80-98) fL MCH (27.0-33.0) pg MCHC (31.0-36.0) g/dl RDW (11.0-16.0) % Plt Count (160-400) X10*3/uL MPV (9.4-12.4) fL Immature Gran % (Auto) (0.0-0.4) % Neut % (Auto) (45-73) % Lymph % (Auto) (20-40) % Boone % (Auto) (2-11) % Eos % (Auto) (0-4) % Baso % (Auto) (0-2) % Lymph # (Auto) (1.2-4.9) X10*3/uL Boone # (Auto) (0.1-1.2) X10*3/uL Eos # (Auto) (0.0-0.4) X10*3/uL Baso # (Auto) (0.0-0.2) X10*3/uL Abs Immat Gran (auto) (0.00-0.03) X10*3/uL Absolute Neuts (auto) (2.0-8.3) X10*3/uL Absolute Nucleated RBC (0.0-0.012) X10*3/uL Nucleated RBC % (auto) (0.0-0.2) /100WBC Smear Tech's Comments Sodium 141 (135-145) mmol/L Potassium 3.4 (3.3-5.1) mmol/L Chloride 108 (96-108) mmol/L Carbon Dioxide 25 (22-29) mmol/L Anion Gap 11 L (12-20) BUN 8 L (9-16) mg/dL Creatinine 0.82 (0.5-1.4) mg/dL Estim Creat Clear Calc 168.3 Estimated GFR > 60 Random Glucose 104 (60-115) mg/dL Calcium 7.9 L D (8.4-10.2) mg/dL Total Bilirubin 1.2 H (0.0-1.0) mg/dL AST 41 H (5-37) U/L ALT 33 (0-40) U/L Alkaline Phosphatase 55 (39-117) U/L Total Protein 6.5 (6.5-8.0) g/dL Albumin 3.5 (3.5-5.0) g/dL Salicylates (15-30) mg/dL Acetaminophen (<30) mcg/mL Ethyl Alcohol mg/dL Discharge Plan Discharge Clinical Impression: Drug use disorder Patient Disposition: Home, Self-Care Instructions: Narcotic Use Disorder (ED) Additional Instructions: You were brought to emergency department after using heroin. You were monitored for any adverse symptoms. He were given Narcan by EMS and in the emergency department. You declined going to detox at this time. You were given a list of detox places if you change your mind. Please follow-up with your primary care physician in 2-3 days. You may return to emergency department if you will will have worsening symptoms or if you experience any additional concerning symptoms Prescriptions: No Action doxepin 50 mg capsule 50 mg PO BEDTIME Qty: 30 RF: 1 amoxicillin-pot clavulanate [Augmentin] 500-125 mg tablet 1 tab PO Q12H 5 Days Qty: 10 RF: 0 azithromycin [Zithromax Z-Steve] 250 mg tablet See Rx Instructions PO .COMPLEX Qty: 6 RF: 0 carbamide peroxide [Debrox] 6.5 % drops 5 drp otic (ear) left BID 4 Days Qty: 15 RF: 0 Interventions: ED Discharge Assessment Last Done: 01/29/21 20:57 Discharge Date/Time: 01/29/21 20:57
[2021-01-29 16:50] LABS: Basophils Percent Auto 0.4 % (0-2); Hemoglobin 12.8 g/dl (14.0-18.0); MANUAL DIFF FLAG SCAN; PLT CLUMP 1; SCAN SMEAR FLAG 1
[2021-01-29 16:51] LABS: Eosinophils Absolute Auto 0.1 X10*3/uL (0.0-0.4); Eosinophils Percent Auto 1.1 % (0-4); Hematocrit 38.4 % (42-52); Imm Gran Abs Auto 0.02 X10*3/uL (0.00-0.03); Imm Gran Pct Auto 0.4 % (0.0-0.4); Lymphocytes Absolute Auto 1.6 X10*3/uL (1.2-4.9); Lymphocytes Percent Auto 27.7 % (20-40); Mean Corpuscular HGB Conc 33.3 g/dl (31.0-36.0); Mean Corpuscular Hemoglobin 27.2 pg (27.0-33.0); Mean Corpuscular Volume 81.7 fL (80-98); Mean Platelet Volume 11.3 fL (9.4-12.4); Monocytes Absolute Auto 0.3 X10*3/uL (0.1-1.2); Monocytes Percent Auto 5.1 % (2-11); Neutrophils Absolute Auto 3.7 X10*3/uL (2.0-8.3); Neutrophils Percent Auto 65.3 % (45-73); Red Cell Distribution Width 14.5 % (11.0-16.0); White Blood Count 5.6 X10*3/uL (4.8-10.8)
[2021-01-29 16:53] LABS: Platelet Count 70 X10*3/uL (160-400)
[2021-01-29 17:08] LABS: Acetaminophen LAB < 1 mcg/mL (<30); Ethanol < 10 mg/dL
[2021-01-29 17:10] LABS: Salicylate < 5.0 mg/dL (15-30)
[2021-01-29 17:22] LABS: SLIDE REVIEW VERIFIED
[2021-01-29] MEDS: 0.9 % Sodium Chloride 1,000 ML 999 ML IV (17:29)
--- NOTE | 2021-01-29 17:45 | PC.NURSE ---
PT AWAKES TO VERBAL AND PHYSICAL STIM. HE TOLERATED PO APPLE JUICE
[2021-01-29 19:04] VITALS: BP 105/62; PULSE 87; RESP 13; TEMP 36.3; O2SAT 94
[2021-01-29] MEDS: Naloxone HCl 0.4 MG/ML VIAL IVPUSH (19:20)
[2021-01-29 19:38] LABS: Alanine Aminotransferase 33 U/L (0-40); Albumin Level 3.5 g/dL (3.5-5.0); Alkaline Phosphatase 55 U/L (39-117); Anion Gap 11 (12-20); Aspartate Amino Transferase 41 U/L (5-37); Bilirubin Total 1.2 mg/dL (0.0-1.0); Blood Urea Nitrogen 8 mg/dL (9-16); Calcium 7.9 mg/dL (8.4-10.2); Carbon Dioxide 25 mmol/L (22-29); Chloride 108 mmol/L (96-108); Creatinine Clr Calc Pharmacy 168.3; Estimated Glomerular Filt Rate > 60; Glucose Random 104 mg/dL (60-115); Potassium 3.4 mmol/L (3.3-5.1); Sodium 141 mmol/L (135-145); Total Protein 6.5 g/dL (6.5-8.0)
== END 2021-01-29 20:57 | disposition home or self-care (01) ==
PROVIDERS: Nurse Practitioner Family; Emergency Provider Internal Medicine
DX: F11.90 Opioid use, unspecified, uncomplicated (principal); R53.1 Weakness; R53.83 Other fatigue; K74.60 Unspecified cirrhosis of liver; F10.10 Alcohol abuse, uncomplicated; Y90.0 Blood alcohol level of less than 20 mg/100 ml
CPT/HCPCS: 36415; 80053; 80143; 80179; 80320; 85025; 96374; 96375; 99283; 99284

== ENCOUNTER 2021-01-29 23:31 | Emergency (ER) | payer OTHER, SELFPAY ==
[2021-01-29 23:56] VITALS: BP 114/72; PULSE 74; RESP 16; TEMP 36.5; O2SAT 96; BMI 25.7
[2021-01-30 00:45] LABS: COVID-19 Test Negative (Negative)
[2021-01-30 01:03] LABS: Amphetamine Screen Urine Not Detected (Not Detect); Barbiturates, Urine Not Detected (Not Detect); Benzodiazepines Screen Urine POSITIVE (Not Detect); Cannabinoid Screen Urine POSITIVE (Not Detect); Cocaine Screen Urine Not Detected (Not Detect); Opiate Screen Urine Not Detected (Not Detect); Phencyclidine Screen Urine Not Detected (Not Detect)
--- NOTE | 2021-01-30 01:55 | ED.PSYCH ---
HPI - Psych General Chief Complaint: Psychiatric Symptoms Stated Complaint: Crisis Source: patient Mode of arrival: ambulatory Limitations: no limitations History of Present Illness HPI Narrative: Patient presents to ED for having thoughts of hurting himself but has no actual plan to kill himself. Patient denies any auditory/visual hallucination. Patient denies any homicidal thoughts. Related Data Previous Rx's Medication Instructions Recorded amoxicillin-pot clavulanate 1 tab PO Q12H 5 Days #10 tab 12/26/20 [Augmentin] azithromycin [Zithromax Z-Steve] See Rx Instructions PO .COMPLEX #6 12/26/20 tab carbamide peroxide 6.5 % ear drops 5 drp OTIC (EAR) LEFT BID 4 Days 01/09/21 #15 ml doxepin 50 mg capsule 50 mg PO BEDTIME #30 cap 01/10/21 Allergies Allergy/AdvReac Type Severity Reaction Status Date / Time No Known Allergies Allergy Verified 01/09/21 08:41 [No Known Allergies*] Review of Systems Review of Systems: Yes all other systems are reviewed and are negative Constitutional: Constitutional: Reports as per HPI and Reports no additional constitutional complaints Eyes: Eyes: Reports as per HPI and Reports no additional eye complaints ENT: Reports system reviewed and no additional complaints, except as documented and Reports as per HPI Cardiovascular: Cardiovascular: Reports as per HPI and Reports no additional cardiovascular complaints Respiratory: Respiratory: Reports as per HPI and Reports no additional respiratory complaints Gastrointestinal: Gastrointestinal: Reports as per HPI and Reports no additional gastrointestinal complaints Genitourinary: Genitourinary: Reports no additional male genitourinary complaints and Reports as per HPI Musculoskeletal: Musculoskeletal: Reports no additional musculoskeletal complaints and Reports as per HPI Neurologic: Reports system reviewed and no additional complaints, except as documented and Reports as per HPI Psychiatric: Psychiatric: Reports no additional psychiatric complaints and Reports as per HPI [facility] Past Medical History Medical History Alcoholism Alcoholism and drug addiction in family Cirrhosis Liver cirrhosis Major depression Pre-op examination Surgical History History of appendectomy Family History Family History Father No problems noted. Mother Chronic mental illness Family/Other Depression Substance abuse Social History Social History Alcohol intake: former Smoking Status: Current every day smoker Cigarettes Per Day: 4 Advance Directives: Yes Advance Directives on File: Yes Advance Directives Date on File: 01/03/21 Physical Exam Vital Signs: Vital Signs: Last Vital Signs Temp 97.7 F 01/29/21 23:56 Pulse 74 01/29/21 23:56 Resp 16 01/29/21 23:56 BP 114/72 01/29/21 23:56 Pulse Ox 96 01/29/21 23:56 Body Mass Index 25.7 Const: General: cooperative, healthy appearing, comfortable, no acute distress, well developed, alert and awake Orientation/consciousness: oriented to time and patient oriented x3 HENMT: Head: Yes normal to inspection, Yes No palpable skull fracture present, Yes normocephalic and Yes atraumatic Eyes: General: appearance normal, both eyes and all related structures Neck: Neck: Yes normal visual inspection, Yes full ROM, Yes no lymphadenopathy, Yes no meningeal signs, Yes trachea midline, Yes supple and No tender Chest: Chest palpation & inspection: normal inspection of the chest and normal palpation of entire chest wall Resp: Effort & Inspection: normal respiratory effort and able to speak in complete sentences Auscultation: clear to auscultation bilaterally Cardio: Jugular venous distension: no JVD Heart sounds: S1 normal heart sound present and S2 normal heart sound present GI: Inspection: Yes normal to inspection and Yes abdominal wall ecchymosis : General: No CVA tenderness and Yes no CVA tenderness Back/Spine/Pelvis: Back: no CVA tenderness, No CVA tenderness and No back tenderness Skin: General skin exam: no rashes or lesions noted and elasticity normal Neuro: General: oriented to time, patient oriented x3, no meningeal signs and CN's II-XI intact bilaterally Cranial nerves: Yes CN's II-XII intact bilaterally Extrem: General: Yes normal to inspection and Yes full ROM Psych: Appearance: grossly normal, well kempt and not disheveled Thought content: Normal thought content present, suicidality and no homicidality Course Course Course Narrative: Patient U tox will be sent. Reevaluation(s) Reevaluation #1: Patient awaiting for behavior [facility] evaluation MDM - Psych Lab Data Labs: Lab Results 01/30/21 01/30/21 Range/Units 00:09 00:09 Urine Opiates Screen Not Detected (Not Detect) Ur Barbiturates Screen Not Detected (Not Detect) Ur Phencyclidine Scrn Not Detected (Not Detect) Ur Amphetamines Screen Not Detected (Not Detect) U Benzodiazepines Scrn POSITIVE H (Not Detect) Urine Cocaine Screen Not Detected (Not Detect) U Marijuana (THC) Screen POSITIVE H (Not Detect) COVID-19 (ANABELLA) Negative (Negative) COVID-19 Clin Com See Note Discharge Plan Discharge Clinical Impression: Major depression Prescriptions: No Action doxepin 50 mg capsule 50 mg PO BEDTIME Qty: 30 RF: 1 amoxicillin-pot clavulanate [Augmentin] 500-125 mg tablet 1 tab PO Q12H 5 Days Qty: 10 RF: 0 azithromycin [Zithromax Z-Steve] 250 mg tablet See Rx Instructions PO .COMPLEX Qty: 6 RF: 0 carbamide peroxide [Debrox] 6.5 % drops 5 drp otic (ear) left BID 4 Days Qty: 15 RF: 0
--- NOTE | 2021-01-30 05:50 | PC.NURSE ---
[facility] notified through smart-sheet, spoke with Gail/confirmed receipt of referral, patient will be evaluated in the morning.
[2021-01-30 10:09] VITALS: BP 114/66; PULSE 72; RESP 16; TEMP 36.4; O2SAT 95
--- NOTE | 2021-01-30 10:32 | PC.NURSE ---
[facility] CALLED FOR DOSING, VERIFICATION FAXED TO PHARMACY
--- NOTE | 2021-01-30 15:24 | PC.NURSE ---
Report received. PT calm and cooperative, denies complaints. PT to be discharged.
== END 2021-01-30 16:07 | disposition home or self-care (01) ==
PROVIDERS: Physician Assistant; Emergency Provider Emergency Medicine; PCP Internal Medicine
DX: F33.1 Major depressive disorder, recurrent, moderate (principal); R45.851 Suicidal ideations; F17.210 Nicotine dependence, cigarettes, uncomplicated; Z79.899 Other long term (current) drug therapy; Z20.822 Contact with and (suspected) exposure to COVID-19; Z71.6 Tobacco abuse counseling
CPT/HCPCS: 36415; 80307; 87635; 99284

== ENCOUNTER 2021-03-25 16:00 | Outpatient (REF) | payer OTHER, SELFPAY ==
[2021-03-25 16:26] LABS: Hemoglobin 12.7 g/dl (14.0-18.0); Mean Corpuscular HGB Conc 32.6 g/dl (31.0-36.0); Mean Corpuscular Volume 82.8 fL (80-98); Platelet Count 101 X10*3/uL (160-400); Red Blood Count 4.71 X10*6/uL (4.60-5.80); Red Cell Distribution Width 14.3 % (11.0-16.0); White Blood Count 5.1 X10*3/uL (4.8-10.8)
== END 2021-03-25 16:01 | disposition home or self-care (01) ==
LOC: HO.LAB 16:00
PROVIDERS: PCP Internal Medicine; Visit Provider Internal Medicine
DX: D69.6 Thrombocytopenia, unspecified (principal)
CPT/HCPCS: 36415; 85027

== ENCOUNTER → 2021-04-11 11:43 | Outpatient (REF) | payer OTHER, SELFPAY ==
--- NOTE | ~2021-04-11 | NM_ITS ---
EXAMINATION: NUCLEAR MEDICINE HEPATOBILIARY SCAN WITHOUT PHARMACY. CLINICAL INFORMATION: Distended gallbladder with mild dilatation of extrahepatic CBD. Recent right upper quadrant pain. COMPARISON: CT abdomen pelvis 12/25/2020. TECHNIQUE: Following intravenous administration of 5 mCi of 90 9M technetium mebrofenin, imaging over the the abdomen was obtained up to 120 minutes. FINDINGS: There is normal hepatic uptake without any focal defects seen. There is visualization of CBD within 10 minutes and gallbladder by 20 minutes. Post and showed the gallbladder ejection fraction measures 20 minutes at 21% and 23% at 40 minutes. No additional emptying was seen at 60 minutes.. NM/NM hepatobiliary wo pharm IMPRESSION: Normal hepatic uptake. Patent cystic duct and patent CBD. Dyskinetic gallbladder with ejection fraction of 23% 40 minutes. No additional emptying was seen at 60 minutes
== END ==
LOC: HO.NUCMED 11:43
PROVIDERS: Visit Provider Nurse Practitioner Family
DX: Q44.1 Other congenital malformations of gallbladder (principal); K74.60 Unspecified cirrhosis of liver; R10.11 Right upper quadrant pain
CPT/HCPCS: 78226; A9537

== ENCOUNTER 2021-04-30 14:24 | Outpatient (REF) | payer OTHER, SELFPAY ==
[2021-04-30 15:22] LABS: MANUAL DIFF FLAG NO
[2021-04-30 15:29] LABS: INTERNATIONAL NORM RATIO 1.2 (0.9-1.1)
[2021-04-30 15:33] LABS: Basophils Percent Auto 0.3 % (0-2); Eosinophils Percent Auto 0.7 % (0-4); Hematocrit 42.8 % (42-52); Hemoglobin 13.9 g/dl (14.0-18.0); Imm Gran Abs Auto 0.01 X10*3/uL (0.00-0.03); Imm Gran Pct Auto 0.2 % (0.0-0.4); Lymphocytes Absolute Auto 1.8 X10*3/uL (1.2-4.9); Lymphocytes Percent Auto 29.5 % (20-40); Mean Corpuscular HGB Conc 32.5 g/dl (31.0-36.0); Mean Corpuscular Hemoglobin 26.8 pg (27.0-33.0); Mean Corpuscular Volume 82.5 fL (80-98); Monocytes Absolute Auto 0.3 X10*3/uL (0.1-1.2); Monocytes Percent Auto 5.3 % (2-11); Neutrophils Absolute Auto 3.9 X10*3/uL (2.0-8.3); Platelet Count 99 X10*3/uL (160-400); Red Blood Count 5.19 X10*6/uL (4.60-5.80); Red Cell Distribution Width 14.5 % (11.0-16.0); White Blood Count 6.1 X10*3/uL (4.8-10.8)
[2021-04-30 15:51] LABS: Alanine Aminotransferase 33 U/L (0-40); Albumin Level 4.1 g/dL (3.5-5.0); Alkaline Phosphatase 68 U/L (39-117); Aspartate Amino Transferase 34 U/L (5-37); Bilirubin Direct 0.4 mg/dL (0.0-0.5); Bilirubin Total 0.8 mg/dL (0.0-1.0); Total Protein 7.8 g/dL (6.5-8.0)
[2021-05-02 11:37] LABS: HCV Log PCR <1.18 NOT DETECTED Log IU/mL (NOT DETECTED); HepC Viral Load <15 NOT DETECTED IU/mL (NOT DETECTED)
[2021-05-02 11:41] LABS: Alpha Fetoprotein 2.6 ng/mL (<6.1)
== END 2021-04-30 14:25 | disposition home or self-care (01) ==
LOC: HO.LAB 14:24
PROVIDERS: PCP Internal Medicine; Visit Provider Internal Medicine
DX: K74.69 Other cirrhosis of liver (principal); Z86.19 Personal history of other infectious and parasitic diseases
CPT/HCPCS: 36415; 80076; 82105; 85025; 85610; 87522

== ENCOUNTER 2021-09-18 09:09 | Inpatient (IN) | payer OTHER, SELFPAY ==
[2021-09-18] VITALS (10 sets, daily range): BP systolic 117–155; BP diastolic 76–90; PULSE 87–126; RESP 14–141; TEMP 36.7–37.1; O2SAT 92–100; BMI 34.9
--- NOTE | 2021-09-18 | ECG_ITS ---
Test Reason : neausa Blood Pressure : / mmHG Vent. Rate : 122 BPM Atrial Rate : 122 BPM P-R Int : 104 ms QRS Dur : 088 ms QT Int : 428 ms P-R-T Axes : 000 028 040 degrees QTc Int : 609 ms Sinus tachycardia with short OR Otherwise normal ECG When compared with ECG of 25-DEC-2020 21:59, No significant change was found Referred By: Generic ED Physician Electronically Signed By:JESSICA RAMIREZ
--- NOTE | 2021-09-18 | ECG_ITS ---
Test Reason : shortness of breath repeat Blood Pressure : / mmHG Vent. Rate : 099 BPM Atrial Rate : 099 BPM P-R Int : 164 ms QRS Dur : 102 ms QT Int : 370 ms P-R-T Axes : 050 018 029 degrees QTc Int : 474 ms Artifact in tracing Normal sinus rhythm with sinus arrhythmia Normal ECG When compared with ECG of 18-SEP-2021 09:41, No significant changes seen Referred By: Joselo Elaine Electronically Signed By:JESSICA RAMIREZ
--- NOTE | ~2021-09-18 | XR_ITS ---
EXAMINATION: XR FOOT, LEFT CLINICAL INFORMATION: Big toe pain. Object fell on it. COMPARISON: None TECHNIQUE: AP, lateral, and oblique views of the left foot. FINDINGS: There is no evidence of acute fracture or dislocation of the left foot. There is some soft tissue swelling seen about the first metatarsophalangeal joint. There is some mild spurring and sclerosis about the first metatarsophalangeal joint. Small calcaneal spurs present sites of insertion of Achilles and plantar tendons. Bony density about the dorsal aspect of the first cuneiform is seen which may be post medical nature or related to osteochondroma. XR/XR foot LT 2V IMPRESSION: No evidence of acute fracture or dislocation of the left foot. Degenerative change about the first metatarsophalangeal joint.
--- NOTE | ~2021-09-18 | CT_ITS ---
EXAMINATION: CT ABDOMEN AND PELVIS WITHOUT CONTRAST CLINICAL INFORMATION: Lack are stool and abdominal pain. Rule out perforated viscus or urinary COMPARISON: Previous CT of the abdomen and pelvis December 2020 TECHNIQUE: Multidetector volumetric imaging was performed from the superior aspect of the liver through the pubic symphysis. Sagittal and coronal reformatted images were obtained on the technologist's workstation. This CT examination was performed using dose optimization techniques as appropriate, variously including the following: *Automated exposure control *Adjustment of mA and/or kV according to patient size (this includes techniques or standardized protocols for targeted exams where dose is matched to indication/reason for exam; i.e. extremities or head) *Use of iterative reconstruction technique DLP: 801 mGy-cm FINDINGS: LUNG BASES: The visualized lung bases are unremarkable. LIVER, GALLBLADDER, AND BILIARY TREE: The liver is enlarged and low in attenuation suggestive of fatty infiltration. There is hypertrophy of the left lobe and caudate lobe of the liver contour liver appears irregular or scalloped suggestive of cirrhosis. The gallbladder is unremarkable with no evidence of radiopaque gallstones, gallbladder wall thickening, or obvious pericholecystic inflammatory changes. PANCREAS: Unremarkable. SPLEEN: The spleen is slightly enlarged measuring 15 cm. ADRENAL GLANDS: Unremarkable. KIDNEYS AND URETERS: The kidneys are normal in size, shape, and attenuation. No hydronephrosis, hydroureter, or calculi seen. No perinephric stranding. BLADDER: Not distended GASTROINTESTINAL TRACT: The small and large bowel are unremarkable. The appendix is not seen and may have been removed. The stomach is unremarkable. There is no ascites or free air. ABDOMINAL WALL: No significant hernia is appreciated. LYMPH NODES: Normal. VASCULAR: There are upper abdominal varices. PELVIC VISCERA: Unremarkable. OSSEOUS STRUCTURES: There is an L5-S1. CT/CT abdomen pelvis wo con IMPRESSION: Severe fatty infiltration of the liver and changes of cirrhosis. Enlarged spleen. Varices. No ascites. No free air. Fleischner guidelines were followed.
[2021-09-18 09:42] LABS: MANUAL DIFF FLAG NO
[2021-09-18 09:45] LABS: Basophils Absolute Auto 0.1 X10*3/uL (0.0-0.2); Basophils Percent Auto 0.6 % (0-2); Eosinophils Percent Auto 0.2 % (0-4); Hematocrit 42.4 % (42.0-52.0); Hemoglobin 14.1 g/dl (14.0-18.0); Imm Gran Abs Auto 0.03 X10*3/uL (0.00-0.03); Imm Gran Pct Auto 0.3 % (0.0-0.4); Lymphocytes Absolute Auto 2.5 X10*3/uL (1.2-4.9); Lymphocytes Percent Auto 28.1 % (20-40); Mean Corpuscular HGB Conc 33.3 g/dl (31.0-36.0); Mean Corpuscular Hemoglobin 27.3 pg (27.0-33.0); Mean Corpuscular Volume 82.2 fL (80.0-98.0); Monocytes Absolute Auto 0.6 X10*3/uL (0.1-1.2); Monocytes Percent Auto 7.1 % (2-11); Neutrophils Absolute Auto 5.7 x10*3/uL (2.0-8.3); Neutrophils Percent Auto 63.7 % (45-73); Platelet Count 157 X10*3/uL (160-400); Red Blood Count 5.16 X10*6/uL (4.60-5.80); Red Cell Distribution Width 15.4 % (11.0-16.0); White Blood Count 8.9 X10*3/uL (4.8-10.8)
[2021-09-18 09:56] LABS: Anion Gap 13 (12-20); Blood Urea Nitrogen 26 mg/dL (9-16); Calcium 8.9 mg/dL (8.4-10.2); Carbon Dioxide 24 mmol/L (22-29); Chloride 104 mmol/L (96-108); Creatinine Clr Calc Pharmacy 137.6; Estimated Glomerular Filt Rate > 60; Glucose Random 170 mg/dL (60-115); Sodium 137 mmol/L (135-145)
[2021-09-18 10:03] LABS: Troponin-I High Sensitivity < 3.5 ng/L (<3.5-35.0)
--- NOTE | 2021-09-18 10:10 | ED_ITS ---
HPI - Nausea/Vomiting/Diarrhea General Chief complaint: Nausea/Vomiting/Diarrhea Stated complaint: RECTAL BLEED Time Seen by Provider: 09/18/21 10:09 Source: patient Mode of arrival: ambulatory Limitations: no limitations History of Present Illness HPI Narrative: 45 years old male came in for evaluation of abdominal pain and black tarry stool. Patient's symptoms started since yesterday, has diffuse generalized abdominal pain described as a crampy pain, pain is intermittent moderate in severity 7/10, associated with nausea and vomiting and black tarry stool. No relieving factor, no aggravating factor. Patient had this symptoms in the past was hospitalized in 2018 had upper endoscopy could not determine the side of the bleed. Patient drinks alcohol daily, known history of liver cirrhosis, patient also on methadone for drug abuse history. No past surgical history. Patient did not drink alcohol for the past 2 days because of vomiting. Related Data Home Medications Medication Instructions Recorded Confirmed methadone 10 mg/mL oral 105 mg PO DAILY 09/18/21 09/18/21 concentrate (Methadose) Allergies Allergy/AdvReac Type Severity Reaction Status Date / Time No Known Allergies Allergy Verified 03/31/21 17:21 [No Known Allergies*] Review of Systems Review of Systems: All other systems are reviewed and are negative Constitutional: Reports as per HPI and Reports no additional constitutional complaints Eyes: Reports as per HPI and Reports no additional eye complaints Reports system reviewed and no additional complaints, except as documented Cardiovascular: Reports as per HPI and Reports no additional cardiovascular complaints Respiratory: Reports as per HPI and Reports no additional respiratory complaints Gastrointestinal: Reports as per HPI and Reports no additional gastrointestinal complaints Genitourinary: Reports no additional female genitourinary complaints Musculoskeletal: Reports no additional musculoskeletal complaints Skin/Breast: Reports system reviewed and no additional complaints, except as docu Psychiatric: Reports no additional psychiatric complaints Endocrine: Reports no additional endocrine complaints Hematologic/Lymphatic: Reports no additional hematologic/lymphatic complaints Allergic/Immunologic: Reports no additional allergic/immunologic complaints Reports system reviewed and no additional complaints, except as documented and Reports Abnormal speech present [facility] Past Medical History Medical History Alcoholism Alcoholism and drug addiction in family Cirrhosis Liver cirrhosis Major depression Pre-op examination Surgical History History of appendectomy Family History Family History Father No problems noted. Mother Chronic mental illness Family/Other Depression Substance abuse Social History Social History Housing: House Alcohol intake: current Alcohol intake frequency: 3 or more drinks per day Alcohol type: beer Patient Tobacco Use Status: Former Tobacco user Cigarettes Per Day: 4 Smoked in Last 30 Days: No e-Cigarette/Vaping Use: Never Used Second Hand Smoke Exposure: No Use of substances other than those prescribed or required for medical reasons: Yes Substance Use Type: Heroin and IV Drugs Advance Directives: Yes Advance Directives on File: Yes Advance Directives Date on File: 01/03/21 service: No Current occupational status: unemployed Physical Exam Vital Signs: Vital Signs: Last Vital Signs Temp 98.5 F 09/18/21 10:51 Pulse 106 H 09/18/21 12:06 Resp 20 09/18/21 12:06 BP 134/87 09/18/21 12:06 Pulse Ox 94 09/18/21 12:06 BMI result Body Mass Index 34.9 Vital signs have been reviewed as appeared to be correct. Blood pressure no rmal. Heart rate for elevated. Respiration rate normal. Temperature normal. Oxygen saturation normal. Appearance: Alert. Oriented X3. No acute distress. Head: Normal external exam. Normocephalic. Atraumatic. No Rai signs noted. No raccoon eyes noted Eyes: PERRLA. EOMI. Conjunctiva and sclera normal. Eyelids normal. ENT: TM's Normal. Pharynx normal. Uvula midline. Moist mucous membranes. No trismus noted. No drooling noted. No muffled voice noted. Neck: Normal inspection. Neck supple. FROM. No adenopathy. Thyroid Normal. No meningeal signs. No neck mass noted. CVS: Normal heart rate and rhythm. Heart sound normal. No murmurs noted. Pulses normal throughout. Respiratory: No respiratory distress. Painless inspiration. Breath sounds normal. No wheezes/rales/rhonchi noted. Chest nontender. No accessory muscle usage noted or decreased air movement noted. Abdomen: Soft, diffuse tenderness, no rebound tenderness, no guarding. Bowel sounds normal in all 4 quadrants. No distention noted. No organomegaly noted. No visible injury noted. Rectal exam: Black tarry melena stool Back: No CVA tenderness. Full range of motion noted. Skin: Skin warm and dry. Normal skin color. Normal skin turgor. No rashes/lesions/lacerations noted. Extremities: No lower extremity edema. Extremities exhibit normal range of motion. Extremities nontender. Neuro: Oriented X 3. Cranial nerve exam: II-XII are grossly intact No motor deficit. No sensory deficit. Reflexes normal. Course Course Course Narrative: Assessment and plan. 45-year-old male with history of alcohol abuse, and liver cirrhosis presented with 1. melena likely upper GI bleed. Been having vomiting with no blood appreciated in the vomitus. 2. Patient is a daily drinker did not drink for the past 2-3 days showing early withdrawal symptoms will start patient on phenobarb. 3. Left foot contusion. MDM - Nausea/Vomiting/Diarrhea Lab Data Attestation: I reviewed the patient's lab results. Result diagrams: 09/18/21 09:30 09/18/21 09:31 Labs: Lab Results 09/18/21 09/18/21 09/18/21 Range/Units 09:30 09:30 09:31 WBC 8.9 (4.8-10.8) X10*3/uL RBC 5.16 (4.60-5.80) X10*6/uL Hgb 14.1 (14.0-18.0) g/dl Hct 42.4 (42.0-52.0) % MCV 82.2 (80.0-98.0) fL MCH 27.3 (27.0-33.0) pg MCHC 33.3 (31.0-36.0) g/dl RDW 15.4 (11.0-16.0) % Plt Count 157 L (160-400) X10*3/uL MPV 10.0 (9.4-12.4) fL Immature Gran % (Auto) 0.3 (0.0-0.4) % Neut % (Auto) 63.7 (45-73) % Lymph % (Auto) 28.1 (20-40) % [place] % (Auto) 7.1 (2-11) % Eos % (Auto) 0.2 (0-4) % Baso % (Auto) 0.6 (0-2) % Lymph # (Auto) 2.5 (1.2-4.9) X10*3/uL [place] # (Auto) 0.6 (0.1-1.2) X10*3/uL Eos # (Auto) 0.0 (0.0-0.4) X10*3/uL Baso # (Auto) 0.1 (0.0-0.2) X10*3/uL Abs Immat Gran (auto) 0.03 (0.00-0.03) X10*3/uL Absolute Neuts (auto) 5.7 (2.0-8.3) x10*3/uL Absolute Nucleated RBC 0.000 (0.0-0.012) X10*3/uL Nucleated RBC % (auto) 0.0 (0.0-0.2) /100WBC PT (9.9-13.0) SEC INR (0.9-1.1) APTT (24.1-38.0) SEC Sodium 137 (135-145) mmol/L Potassium 4.0 (3.3-5.1) mmol/L Chloride 104 (96-108) mmol/L Carbon Dioxide 24 (22-29) mmol/L Anion Gap 13 (12-20) BUN 26 H (9-16) mg/dL Creatinine 0.94 (0.5-1.4) mg/dL Estim Creat Clear Calc 137.6 Estimated GFR > 60 Random Glucose 170 H D (60-115) mg/dL Calcium 8.9 D (8.4-10.2) mg/dL Total Bilirubin 2.1 H (0.0-1.0) mg/dL Direct Bilirubin 0.8 H (0.0-0.5) mg/dL AST 47 H (5-37) U/L ALT 43 H (0-40) U/L Alkaline Phosphatase 74 (39-117) U/L Troponin I High Sens < 3.5 (<3.5-35.0) ng/L Total Protein 8.4 H (6.5-8.0) g/dL Albumin 4.0 (3.5-5.0) g/dL Stool Occult Blood (NEGATIVE) COVID-19 (ANABELLA) (Negative) COVID-19 Clin Com 09/18/21 09/18/21 09/18/21 Range/Units 09:32 10:15 10:59 WBC (4.8-10.8) X10*3/uL RBC (4.60-5.80) X10*6/uL Hgb (14.0-18.0) g/dl Hct (42.0-52.0) % MCV (80.0-98.0) fL MCH (27.0-33.0) pg MCHC (31.0-36.0) g/dl RDW (11.0-16.0) % Plt Count (160-400) X10*3/uL MPV (9.4-12.4) fL Immature Gran % (Auto) (0.0-0.4) % Neut % (Auto) (45-73) % Lymph % (Auto) (20-40) % [place] % (Auto) (2-11) % Eos % (Auto) (0-4) % Baso % (Auto) (0-2) % Lymph # (Auto) (1.2-4.9) X10*3/uL [place] # (Auto) (0.1-1.2) X10*3/uL Eos # (Auto) (0.0-0.4) X10*3/uL Baso # (Auto) (0.0-0.2) X10*3/uL Abs Immat Gran (auto) (0.00-0.03) X10*3/uL Absolute Neuts (auto) (2.0-8.3) x10*3/uL Absolute Nucleated RBC (0.0-0.012) X10*3/uL Nucleated RBC % (auto) (0.0-0.2) /100WBC PT 14.9 H (9.9-13.0) SEC INR 1.3 H (0.9-1.1) APTT 30.8 (24.1-38.0) SEC Sodium (135-145) mmol/L Potassium (3.3-5.1) mmol/L Chloride (96-108) mmol/L Carbon Dioxide (22-29) mmol/L Anion Gap (12-20) BUN (9-16) mg/dL Creatinine (0.5-1.4) mg/dL Estim Creat Clear Calc Estimated GFR Random Glucose (60-115) mg/dL Calcium (8.4-10.2) mg/dL Total Bilirubin (0.0-1.0) mg/dL Direct Bilirubin (0.0-0.5) mg/dL AST (5-37) U/L ALT (0-40) U/L Alkaline Phosphatase (39-117) U/L Troponin I High Sens (<3.5-35.0) ng/L Total Protein (6.5-8.0) g/dL Albumin (3.5-5.0) g/dL Stool Occult Blood POSITIVE (NEGATIVE) COVID-19 (ANABELLA) Negative (Negative) COVID-19 Clin Com See Note Imaging Data CT scan - abdomen: Attestation: I personally reviewed and interpreted this imaging study as follows: Radiologist's impression: Severe fatty infiltration of the liver and changes of cirrhosis. Enlarged spleen. Varices. No ascites. No free air. ? Discharge Plan Discharge Clinical Impression: Melena, Contusion of foot, left, Alcohol withdrawal Patient Disposition: Admitted As Inpatient
[2021-09-18 10:16] LABS: COVID-19 Test Negative (Negative)
[2021-09-18 10:37] LABS: OBS Int Ctl Valid YES; OBS1 POSITIVE (NEGATIVE)
[2021-09-18] MEDS: Pantoprazole Sodium 40 MG/10 ML VIAL IVPUSH ×2 (10:49→15:46)
[2021-09-18] MEDS: ondansetron HCL 4 MG/2 ML VIAL IVPUSH (10:49)
[2021-09-18 11:13] LABS: INTERNATIONAL NORM RATIO 1.3 (0.9-1.1); Prothrombin Time 14.9 SEC (9.9-13.0)
[2021-09-18 11:16] LABS: Partial Thromboplastin Time 30.8 SEC (24.1-38.0)
--- NOTE | 2021-09-18 11:18 | PHA.MEDREC ---
Pharmacy Consult ? Medication Reconciliation Pharmacy has completed the medication reconciliation. Patient reports he only takes methadone at home. Methadone at [facility] in [facility] [phone]. Confirm 105 mg last dose yesterday 09/17/2021. Confirm with Angelyra. Barbara Huntley, PharmD
[2021-09-18 12:22] LABS: Alanine Aminotransferase 43 U/L (0-40); Alkaline Phosphatase 74 U/L (39-117); Aspartate Amino Transferase 47 U/L (5-37); Bilirubin Direct 0.8 mg/dL (0.0-0.5); Bilirubin Total 2.1 mg/dL (0.0-1.0); Total Protein 8.4 g/dL (6.5-8.0)
[2021-09-18] MEDS: PHENobarbitaL sodium 130 MG/ML VIAL 319.8 MG IM (12:45)
--- NOTE | 2021-09-18 13:01 | PM.IMHP ---
History of Present Illness Date of Service: 09/18/21 Chief Complaint: melena + red blood per rectum This is a 45 yo M with a PMH of heavy alcohol use daily (reports drinking 3 cans of 30+ oz 12% alcohol beer daily, last drink yesterday) who presents to the emergency room after he noted black tarry stools with some red blood which began on the morning of admission. The patient reports that he was feeling sweaty, with anxiety + shortness of breath yesterday evening. When he awoke this morning, he reported some lower abdominal cramping type pain. He went to move his bowels and he noted the changes in his stool. He reports having this in the remote past, but endorses that his stools have not been this way in the preceeding days. He reports dry heaving, but denies any actual vomiting -- bloody or otherwise. He denies any sharp/burning epigastric type pain. He reports current anxiety. He endorses prior alcohol withdrawal symptoms but denies withdrawal seizures or DTs. In the ED the patient was noted to be tachycardic with positive occult blood. CT scan of the abdomen showed no acute findings, but did show upper abdominal varices. He was given IVF, IV anti-emetics and IV PPI. He will be admitted for further work up. Review of Systems Review of Systems: negative except HPI [facility] Medical History Alcoholism Alcoholism and drug addiction in family Cirrhosis Liver cirrhosis Major depression Pre-op examination Family History Father No problems noted. Mother Chronic mental illness Family/Other Depression Substance abuse Surgical History History of appendectomy Social History Housing: House Alcohol intake: current Alcohol intake frequency: 3 or more drinks per day Alcohol type: beer Patient Tobacco Use Status: Former Tobacco user Cigarettes Per Day: 4 Smoked in Last 30 Days: No e-Cigarette/Vaping Use: Never Used Second Hand Smoke Exposure: No Use of substances other than those prescribed or required for medical reasons: Yes Substance Use Type: Heroin and IV Drugs Advance Directives: Yes Advance Directives on File: Yes Advance Directives Date on File: 01/03/21 service: No Current occupational status: unemployed Meds Allergies Allergy/AdvReac Type Severity Reaction Status Date / Time No Known Allergies Allergy Verified 03/31/21 17:21 [No Known Allergies*] Active Medications: Current Medications Medication (No Benzodiazepines) 1 each MISCELLANE DAILY [facility] Pharmacy Consult (Consult Rx Perform Med Rec) 1 each MISCELLANE ONCE PRN PRN Reason: Consult order Phenobarbital (Phenobarbital 30 Mg Tablet) 60 mg PO BID JULIA; Protocol Stop: 09/20/21 09:01 Phenobarbital (Phenobarbital 30 Mg Tablet) 30 mg PO BID JULIA; Protocol Stop: 09/22/21 09:01 Phenobarbital (Phenobarbital 30 Mg Tablet) 30 mg PO DAILY [facility]; Protocol Stop: 09/24/21 09:01 Phenobarbital Sodium (Phenobarbital Sodium 130 Mg/Ml Vial) 240.5 mg IM Q3H [facility]; Protocol Stop: 09/18/21 19:01 Home Medications Medication Instructions Recorded Confirmed Last Taken Type methadone 10 mg/mL oral 105 mg PO DAILY 09/18/21 09/18/21 09/17/20 History concentrate (Methadose) Physical Exam Vital Signs and Narrative: Vital Signs: Last Vital Signs Temp 98.5 F 09/18/21 10:51 Pulse 106 H 09/18/21 12:06 Resp 20 09/18/21 12:06 BP 134/87 09/18/21 12:06 Pulse Ox 94 09/18/21 12:06 BMI result Body Mass Index 34.9 Const: Other: Constitutional - Awake and Alert, appears anxious Eyes - PERRLA, EOMI Cardiovascular - S1S2, tachycardic in the 110s Respiratory - Normal lung expansion, Normal respiratory effort, No respiratory distress, CTA bilaterally Gastrointestinal - NT / ND; +BS; No rebound or guarding - No CVA tenderness Extremities - no calf tenderness bilaterally, no swelling Musculoskeletal - L foot with bruising near 1st toe; +bony TTP but able to move toe joint Skin - Warm/Dry Neurological - Alert & oriented x3, No focal deficit; mild tremors Psychological - Appropriate affect Results Labs CBC and Chem 7: 09/18/21 13:28 09/18/21 09:31 Labs: Laboratory Results - last 24 hr 09/18/21 09/18/21 09/18/21 09:30 09:30 09:31 MCV 82.2 MCH 27.3 MCHC 33.3 RDW 15.4 Plt Count 157 L MPV 10.0 Immature Gran % (Auto) 0.3 Neut % (Auto) 63.7 Lymph % (Auto) 28.1 [place] % (Auto) 7.1 Eos % (Auto) 0.2 Baso % (Auto) 0.6 Lymph # (Auto) 2.5 [place] # (Auto) 0.6 Eos # (Auto) 0.0 Baso # (Auto) 0.1 Abs Immat Gran (auto) 0.03 Absolute Neuts (auto) 5.7 Absolute Nucleated RBC 0.000 Nucleated RBC % (auto) 0.0 PT INR APTT Anion Gap 13 Estim Creat Clear Calc 137.6 Estimated GFR > 60 Random Glucose 170 H D Calcium 8.9 D Total Bilirubin 2.1 H Direct Bilirubin 0.8 H AST 47 H ALT 43 H Alkaline Phosphatase 74 Troponin I High Sens < 3.5 Total Protein 8.4 H Albumin 4.0 Stool Occult Blood COVID-19 (ANABELLA) COVID-19 [facility] 09/18/21 09/18/21 09/18/21 09:32 10:15 10:59 MCV MCH MCHC RDW Plt Count MPV Immature Gran % (Auto) Neut % (Auto) Lymph % (Auto) [place] % (Auto) Eos % (Auto) Baso % (Auto) Lymph # (Auto) [place] # (Auto) Eos # (Auto) Baso # (Auto) Abs Immat Gran (auto) Absolute Neuts (auto) Absolute Nucleated RBC Nucleated RBC % (auto) PT 14.9 H INR 1.3 H APTT 30.8 Anion Gap Estim Creat Clear Calc Estimated GFR Random Glucose Calcium Total Bilirubin Direct Bilirubin AST ALT Alkaline Phosphatase Troponin I High Sens Total Protein Albumin Stool Occult Blood POSITIVE COVID-19 (ANABELLA) Negative COVID-19 [facility] See Note Imaging Radiologist's Impressions: Impressions Abdomen/Pelvis CT 09/18/21 10:55 IMPRESSION: Severe fatty infiltration of the liver and changes of cirrhosis. Enlarged spleen. Varices. No ascites. No free air. Fleischner guidelines were followed. Assessment and Plan (1) Alcohol withdrawal: Status: Acute (2) Melena: Status: Acute This is a 45 yo M with a PMH of EtOh abuse and resultant Cirrhosis (by imaging), Chronic opiate use -- on methadone, depression, who presents to the ED with lower abodminal cramps and melanotic stools of several hours duration. His CT scan shows upper abdominal varices. He appears to be mild alcohol withdrawal. He will be admitted for further treatment. 1. Suspected Upper GI bleed 1a. Acute blood loss -- monitor for blood loss anemia FOBT positive IV PPI, IV octreotide infusion (has visible varices on CT scan) monitor h/h q4-6 hours NPO D5NS @ 100 cc/hr GI consult -- d/w Dr. Garza 2. Alcohol abuse with dependence and early withdrawal 2a. Ascites by imaging Phenobarb per protocol monitor lytes alcohol cessation has been strongly advised 3. L foot pain reports he injured it last 1-2 week, while shoveling snow check foot xr 4. Chronic opiate dependence on methadone, qtc prolonged -- hold for now 5. Prolonged QTC check lytes hold qt prolonging medications including methadone repeat EKG Full Code DVT pptx, Mechanical due to GI bleed Quality Stroke Does the patient have a stroke diagnosis?: No VTE Prior VTE?: No VTE Risk Level:: Medical - moderate - high VTE Device Contraindication: N/A - Device Ordered VTE Drug Contraindication: Treatment Not Indicated (contraindicated due to GI bleed)
[2021-09-18] MEDS: Dextrose 5 % and 0.9 % NaCl 1,000 ML 100 ML IVCONT ×2 (13:20→23:38)
[2021-09-18] MEDS: Octreotide Acetate 100 MCG/ML AMPUL 50 MCG IVPUSH (13:20)
[2021-09-18 13:33] LABS: Hematocrit 41.7 % (42.0-52.0); Hemoglobin 13.6 g/dl (14.0-18.0)
[2021-09-18] MEDS: Octreotide Acetate 500 MCG in 0.9 % Sodium Chloride 500 ML 50.1 MCG IVCONT ×2 (13:49→23:37)
[2021-09-18 14:18] LABS: Magnesium 1.8 mg/dL (1.6-2.6)
--- NOTE | 2021-09-18 14:42 | MHC.SHP ---
Pre-Procedural Eval Section A Date of Service: 09/18/21 The patient is an INPATIENT: Yes Changes since office visit: No Cold of Flu in the past 2 weeks, No New Medical Problems, No Changes in Medication and No Patient answered all questions The History & Physical has been completed within 30 days and I have reviewed it.: Yes Section B Chief Complaint: melena Allergies: Allergies Allergy/AdvReac Type Severity Reaction Status Date / Time No Known Allergies Allergy Verified 03/31/21 17:21 [No Known Allergies*] Plan I have reviewed the history and physical and performed a pertinent physical examination on my patient. No changes have occurred unless specified.
--- NOTE | 2021-09-18 14:42 | PM.EVENT ---
Event Note Date of Service: 09/18/21 Event Note: GI consult dictated 45 yo alcoholic with melena but no hematemesis previous gi bleeding from MW tears, h/o nonbleeding varices. hemodynamically stable, with no siginificant anemia rec ppi, octrotide, EGD planned for 1/13 am, sooner if necessary.
[2021-09-18] MEDS: PHENobarbitaL sodium 130 MG/ML VIAL 240.5 MG IM ×2 (15:45→19:29)
[2021-09-18] MEDS: Magnesium Sulfate/H2O 2 GM/50 ML PIGGYBACK IV (15:46)
--- NOTE | 2021-09-18 16:14 | CONS_ITS ---
DATE OF SERVICE: REFERRING PHYSICIAN: Joselo Elaine MD REASON FOR CONSULTATION: Melena. HISTORY OF PRESENT ILLNESS: The patient is a pleasant 45-year-old man with a history of alcohol abuse, liver cirrhosis and nonbleeding esophageal varices, who presented to the emergency room today with complaints of melena. He states this started this morning. He felt unwell beginning yesterday and describes epigastric discomfort including aching and cramping. He had some dry heaves, but no michelle hematemesis. He also had black tarry stools starting this morning. There was no radiation of the discomfort and no precipitating or relieving factors. He reports resuming alcohol abuse after a period of sobriety about 1 month ago, drinking upwards of 3 40-ounce containers of high alcohol beer on daily basis. He has not been using any omeprazole, which he was prescribed after his last visit where he underwent upper endoscopy for similar presentation in 2018. He had 2 endoscopies at that point, which showed grade 1-2 nonbleeding varices and possible bleeding from a Adriane-Pinedo tear. He denies any recent NSAID, tobacco, or substance use. He is maintained on methadone for opiate dependence. In the Emergency Department, he was evaluated and was somewhat tachycardic, but had a stable blood pressure. Further evaluation included lab testing that showed a hematocrit of 42.4 this morning at 9:30; this was rechecked this afternoon and remained stable at 41.7. He has been started empirically on octreotide and is also getting pantoprazole intravenously. CT scanning of the abdomen and pelvis was obtained, which is reviewed. This is interpreted as showing cirrhosis with fatty liver changes as well splenomegaly and upper abdominal varices. No ascites was seen. PAST MEDICAL HISTORY: 1. Alcohol abuse as above with cirrhosis and nonbleeding esophageal varices. 2. Opiate dependence, currently on methadone. 3. Depression. CURRENT MEDICATIONS: His only medication on admission was methadone. ALLERGIES: THERE ARE NONE REPORTED. FAMILY HISTORY: Positive for substance abuse and mental illness. REVIEW OF SYSTEMS: SKIN: No pruritus. HEENT: Negative. CARDIOPULMONARY: No shortness breath or chest pain. GASTROINTESTINAL: As above. GENITOURINARY: Negative. NEUROPSYCHIATRIC: Negative. He denies using any intravenous medications recently. PHYSICAL EXAMINATION: GENERAL: Shows pleasant male, lying comfortably in bed. VITAL SIGNS: Stable, with mild tachycardia SKIN: Anicteric. Multiple tattoos are present. HEENT: Shows no scleral icterus. NECK: Without lymphadenopathy or thyromegaly. LUNGS: Clear. HEART: Shows regular rate and rhythm with tachycardia. S1, S2. No murmur. ABDOMEN: Soft without focal masses or tenderness. Bowel sounds are present. No organomegaly is noted. EXTREMITIES: Show some swelling in the left lower extremity where he recently tripped while walking his dog on ice. X-ray has been obtained. There is no asterixis or tremor. IMPRESSION: Upper gastrointestinal bleeding. DISCUSSION: His presentation is consistent with upper gastrointestinal bleeding, and the differential diagnosis for this includes gastritis, peptic ulcer disease, and bleeding from his known portal hypertensive gastropathy or varices. This does not appear consistent with active variceal bleeding, as he has a stable hematocrit and no hematemesis. I discussed endoscopy with him including risks and benefits of the procedure. It will be arranged for tomorrow given that he is stable and can always be done sooner if medically necessary. In the interim, he will be treated with proton pump inhibitor and continued empirically on octreotide. I would recommend monitoring his hematocrit as we are doing. Thanks for asking me to see him. I will follow him in the hospital with you. MD ELSI Napier/SIMONE / [id number] MTDD
[2021-09-18] MEDS: 0.9 % Sodium Chloride Flush 3 ML SYRINGE IVFLUSH (17:37)
[2021-09-18] MEDS: methADONE HCl 20 MG/2 ML ORAL.CONC 105 MG PO (17:37)
[2021-09-18 19:24] LABS: Hematocrit 38.1 % (42.0-52.0); Hemoglobin 12.7 g/dl (14.0-18.0)
--- NOTE | 2021-09-18 19:31 | PC.NURSE ---
pt has slight nausea, treated with ciwa protocol. pt has no bleeding noted at this time.
[2021-09-18] MEDS: PHENobarbitaL 30 MG TABLET 60 MG PO (23:35)
[2021-09-19] VITALS (12 sets, daily range): BP systolic 107–155; BP diastolic 54–92; PULSE 71–84; RESP 16–18; TEMP 36.3–37.3; O2SAT 94–100
[2021-09-19 00:57] LABS: Hematocrit 37.7 % (42.0-52.0); Hemoglobin 12.3 g/dl (14.0-18.0)
--- NOTE | 2021-09-19 05:58 | PC.NURSE ---
pt has been npo since midnight. pt has had no n/v/d no active bleeding noted. H&H decreasing with each draw. report given to journeyman pressman
[2021-09-19] MEDS: Pantoprazole Sodium 40 MG/10 ML VIAL IVPUSH (06:03)
--- NOTE | 2021-09-19 07:43 | PC.NURSE ---
TO PACU AT THIS TIME FOR PROCEDURE
[2021-09-19 08:04] LABS: Hematocrit 39.4 % (42.0-52.0); Hemoglobin 12.3 g/dl (14.0-18.0); Mean Corpuscular HGB Conc 31.2 g/dl (31.0-36.0); Mean Corpuscular Volume 86.6 fL (80.0-98.0); Mean Platelet Volume 10.1 fL (9.4-12.4); Red Blood Count 4.55 X10*6/uL (4.60-5.80); Red Cell Distribution Width 15.9 % (11.0-16.0); White Blood Count 5.7 X10*3/uL (4.8-10.8)
--- NOTE | 2021-09-19 08:05 | P.CONAN_ITS ---
[facility] Active Problems Active Problems: All Active Problems (Updated 09/18/21 @ 12:54 by Amish Waldrop MD) Atypical nevi (Acute) Right upper quadrant pain (Acute) Cirrhosis (Acute) Gallbladder anomaly (Acute) Blocked ear (Acute) Thrombocytopenia (Acute) Rash (Acute) Melena (Acute) Contusion of foot, left (Acute) Alcohol withdrawal (Acute) Liver cirrhosis (Acute) Pre-op examination (Acute) Major depression (Acute) Alcoholism (Acute) Past Medical History Medical History Alcoholism Alcoholism and drug addiction in family Cirrhosis Liver cirrhosis Major depression Pre-op examination Family History Family History Father No problems noted. Mother Chronic mental illness Family/Other Depression Substance abuse Surgical History Surgical History History of appendectomy Hx of esophagogastroduodenoscopy History of Problems with Anesthesia: No Social History Social History Housing: House Alcohol intake: current Alcohol intake frequency: 3 or more drinks per day Alcohol type: beer Patient Tobacco Use Status: Former Tobacco user Quit Date: 1 yr ago Cigarettes Per Day: 4 Smoked in Last 30 Days: No e-Cigarette/Vaping Use: Never Used Second Hand Smoke Exposure: No Use of substances other than those prescribed or required for medical reasons: No Substance Use Type: Heroin and IV Drugs Are you DNR?: No Advance Directives: Yes Advance Directives on File: Yes Advance Directives Date on File: 01/03/21 service: No Current occupational status: unemployed Meds Allergies Allergy/AdvReac Type Severity Reaction Status Date / Time No Known Allergies Allergy Verified 03/31/21 17:21 [No Known Allergies*] Active Medications: Current Medications Acetaminophen (Acetaminophen 325 Mg Tablet) 650 mg PO Q6H PRN PRN Reason: Pain, Mild (Pain Scale 1-3) Dextrose/Sodium Chloride (D5ns) 1,000 mls @ 100 mls/hr IVCONT .Q10H JULIA Last Admin: 09/18/21 23:38 Dose: 100 mls/hr Documented by: Octreotide Acetate 500 mcg/ (Sodium Chloride) 501 mls @ 50.1 mls/hr IVCONT .Q10H [facility] Last Admin: 09/18/21 23:37 Dose: 50 mcg/hr, 50.1 mls/hr Documented by: Medication (No Benzodiazepines) 1 each MISCELLANE DAILY [facility] Methadone HCl (Methadone Hcl 20 Mg/2 Ml Oral.Conc) 105 mg PO DAILY [facility] Last Admin: 09/18/21 17:37 Dose: 105 mg Documented by: Ondansetron HCl (Ondansetron Hcl 4 Mg/2 Ml Vial) 4 mg IVPUSH Q8H PRN PRN Reason: Nausea and Vomiting Pantoprazole Sodium (Pantoprazole Sodium 40 Mg/10 Ml Vial) 40 mg IVPUSH BID@0630,1630 [facility] Last Admin: 09/19/21 06:03 Dose: 40 mg Documented by: Pharmacy Consult (Consult Rx Perform Med Rec) 1 each MISCELLANE ONCE PRN PRN Reason: Consult order Phenobarbital (Phenobarbital 30 Mg Tablet) 60 mg PO BID [facility]; Protocol Stop: 09/20/21 09:01 Last Admin: 09/18/21 23:35 Dose: 60 mg Documented by: Phenobarbital (Phenobarbital 30 Mg Tablet) 30 mg PO BID [facility]; Protocol Stop: 09/22/21 09:01 Phenobarbital (Phenobarbital 30 Mg Tablet) 30 mg PO DAILY [facility]; Protocol Stop: 09/24/21 09:01 Sodium Chloride (0.9 % Sodium Chloride Flush 3 Ml Syringe) [facility] Last Admin: 09/19/21 00:02 Dose: Not Given Documented by: Home Medications Medication Instructions Recorded Confirmed Last Taken Type methadone 10 mg/mL oral 105 mg PO DAILY 09/18/21 09/18/21 09/17/20 History concentrate (Methadose) Exam Exam Date and Time: September 19, 2021 0805 Height,Weight and Vital Signs: Height 6 ft 1 in Weight 120.304 kg Last Vital Signs Temp 99.1 F 09/19/21 07:49 Pulse 81 09/19/21 07:49 Resp 16 09/19/21 07:49 BP 118/69 09/19/21 07:49 Pulse Ox 95 09/19/21 07:49 Pertinent Lab Results Pertinent Lab Results: Laboratory Tests 09/18/21 09/18/21 09/18/21 09:30 09:30 09:31 WBC 8.9 RBC 5.16 Hgb 14.1 Hct 42.4 MCV 82.2 MCH 27.3 MCHC 33.3 RDW 15.4 Plt Count 157 L MPV 10.0 Immature Gran % (Auto) 0.3 Neut % (Auto) 63.7 Lymph % (Auto) 28.1 [place] % (Auto) 7.1 Eos % (Auto) 0.2 Baso % (Auto) 0.6 Lymph # (Auto) 2.5 [place] # (Auto) 0.6 Eos # (Auto) 0.0 Baso # (Auto) 0.1 Abs Immat Gran (auto) 0.03 Absolute Neuts (auto) 5.7 Absolute Nucleated RBC 0.000 Nucleated RBC % (auto) 0.0 PT INR APTT Sodium 137 Potassium 4.0 Chloride 104 Carbon Dioxide 24 Anion Gap 13 BUN 26 H Creatinine 0.94 Estim Creat Clear Calc 137.6 Estimated GFR > 60 Random Glucose 170 H D Calcium 8.9 D Magnesium 1.8 Total Bilirubin 2.1 H Direct Bilirubin 0.8 H AST 47 H ALT 43 H Alkaline Phosphatase 74 Troponin I High Sens < 3.5 Total Protein 8.4 H Albumin 4.0 Stool Occult Blood COVID-19 ([facility]) COVID-[employer] [facility] 09/18/21 09/18/21 09/18/21 09:32 10:15 10:59 WBC RBC Hgb Hct MCV MCH MCHC RDW Plt Count MPV Immature Gran % (Auto) Neut % (Auto) Lymph % (Auto) [place] % (Auto) Eos % (Auto) Baso % (Auto) Lymph # (Auto) [place] # (Auto) Eos # (Auto) Baso # (Auto) Abs Immat Gran (auto) Absolute Neuts (auto) Absolute Nucleated RBC Nucleated RBC % (auto) PT 14.9 H INR 1.3 H APTT 30.8 Sodium Potassium Chloride Carbon Dioxide Anion Gap BUN Creatinine Estim Creat Clear Calc Estimated GFR Random Glucose Calcium Magnesium Total Bilirubin Direct Bilirubin AST ALT Alkaline Phosphatase Troponin I High Sens Total Protein Albumin Stool Occult Blood POSITIVE COVID-19 ([facility]) Negative COVID-[employer] [facility] See Note 09/18/21 09/18/21 09/19/21 13:28 19:16 00:50 WBC RBC Hgb 13.6 L 12.7 L 12.3 L Hct 41.7 L 38.1 L 37.7 L MCV MCH MCHC RDW Plt Count MPV Immature Gran % (Auto) Neut % (Auto) Lymph % (Auto) [place] % (Auto) Eos % (Auto) Baso % (Auto) Lymph # (Auto) [place] # (Auto) Eos # (Auto) Baso # (Auto) Abs Immat Gran (auto) Absolute Neuts (auto) Absolute Nucleated RBC Nucleated RBC % (auto) PT INR APTT Sodium Potassium Chloride Carbon Dioxide Anion Gap BUN Creatinine Estim Creat Clear Calc Estimated GFR Random Glucose Calcium Magnesium Total Bilirubin Direct Bilirubin AST ALT Alkaline Phosphatase Troponin I High Sens Total Protein Albumin Stool Occult Blood COVID-19 ([facility]) COVID-19 Clin Com Airway Mallampati Class: II TM Dist: >3cm Neck ROM: Full Heart: RRR Lungs: CTA Assessment and Plan Assessment Anesthesia Assessment: Anesthesia Plan Discussed and Chart Reviewed Final Anesthetic Review History of Problems with Anesthesia: No NPO: Yes ASA Class: III Final Preanesthetic Review: Meds/Allgs Chart Reviewed, Consent Obtained/Reviewed and Anes Risks/Benef Reviewed Patient Risk: Intermediate Procedure Risk: Intermediate Anesthetic Plan Anesthetic Plan: MAC: Disposition: Standard PACU
[2021-09-19 08:09] LABS: Platelet Count 96 X10*3/uL (160-400)
[2021-09-19] MEDS: Lactated Ringers 1,000 ML 50 ML IVCONT (08:10)
[2021-09-19 08:17] LABS: Alanine Aminotransferase 44 U/L (0-40); Albumin Level 3.4 g/dL (3.5-5.0); Alkaline Phosphatase 60 U/L (39-117); Aspartate Amino Transferase 72 U/L (5-37); Bilirubin Direct 0.6 mg/dL (0.0-0.5); Bilirubin Total 1.3 mg/dL (0.0-1.0)
[2021-09-19 08:23] LABS: Anion Gap 10 (12-20); Blood Urea Nitrogen 15 mg/dL (9-16); Calcium 7.8 mg/dL (8.4-10.2); Carbon Dioxide 23 mmol/L (22-29); Chloride 111 mmol/L (96-108); Estimated Glomerular Filt Rate > 60; Glucose Random 113 mg/dL (60-115); Potassium 3.9 mmol/L (3.3-5.1); Sodium 140 mmol/L (135-145)
[2021-09-19] MEDS: Dextrose 5 % and 0.9 % NaCl 1,000 ML 100 ML IVCONT (09:05)
[2021-09-19] MEDS: PHENobarbitaL 30 MG TABLET 60 MG PO (09:22)
--- NOTE | 2021-09-19 09:55 | OP_ITS ---
SURGEON: Moreno Garza MD INDICATIONS: Upper GI bleeding. PREOPERATIVE DIAGNOSIS: POSTOPERATIVE DIAGNOSIS: PROCEDURE PERFORMED: Upper endoscopy with biopsy. ESTIMATED BLOOD LOSS: COMPLICATIONS: ANESTHESIA: ASSISTANTS: SPECIMENS: MEDICATIONS: Monitored anesthesia care. DESCRIPTION OF PROCEDURE: The history and physical performed. The risks and benefits of the procedure were explained to the patient. Informed consent was obtained. The patient was placed in left lateral decubitus position. The Olympus video gastroscope was introduced into the esophagus, stomach, and duodenum. Examination was performed. The scope was removed. He tolerated the procedure well and was taken to recovery in stable condition. FINDINGS: Esophagus: There were 3 chains of grade 1 varices with no stigmata of recent hemorrhage. These extended from the EG junction at 40 cm up to about 30 cm. There was no esophagitis. Stomach: The stomach showed changes of portal hypertensive gastropathy with no bleeding source identified. There was no blood in stomach. Antral biopsies were obtained to rule out H pylori. Duodenum: The bulb and second portion were normal. IMPRESSION: 1. Esophageal varices, grade 1, nonbleeding. 2. Portal hypertensive gastropathy. RECOMMENDATIONS: 1. Followup the biopsy results. 2. Discontinue octreotide. 3. Advanced diet. 4. Continue proton pump inhibitor. 5. The patient may be discharged later today. MD ELSI Napier/SIMONE / [id number]
--- NOTE | 2021-09-19 10:04 | PM.OP ---
Brief Operative Note Date of Service: 09/19/21 Pre-op diagnosis: gi bleed Post-op diagnosis: same Surgeon: Moreno Garza Anesthesia: MAC Was an Organic Gardening Teacher used for this Procedure?: No Estimated blood loss (mL): 2 Pathology: other (antral biopsies) Condition: stable Disposition: PACU
[2021-09-19] MEDS: methADONE HCl 20 MG/2 ML ORAL.CONC 105 MG PO (10:10)
--- NOTE | 2021-09-19 12:23 | PM.DS ---
DS: Providers Provider Date of Service: 09/19/21 Date of admission: 09/18/21 13:02 Primary care physician: Juan Miguel Asif MD Consults: 09/18/21 13:01 Consult to Gastroenterology Routine Consulting Provider: Moreno Garza Reason for consultation: Melena, etoh abuse, varices seen on CT Attending physician on discharge: Joselo Elaine Discharging clinician: Cindy Louie DS: Diagnosis Discharge Diagnosis (1) Melena: Status: Acute (2) Alcohol withdrawal: Status: Acute DS: Summary Hospital Course Hospital Course: This is a 45 yo M with a PMH of heavy alcohol use daily (reports drinking 3 cans of 30+ oz 12% alcohol beer daily, last drink yesterday) who presents to the emergency room after he noted black tarry stools with some red blood which began on the morning of admission. The patient reports that he was feeling sweaty, with anxiety + shortness of breath yesterday evening. When he awoke this morning, he reported some lower abdominal cramping type pain. He went to move his bowels and he noted the changes in his stool. He reports having this in the remote past, but endorses that his stools have not been this way in the preceeding days. He reports dry heaving, but denies any actual vomiting -- bloody or otherwise. He denies any sharp/burning epigastric type pain. He reports current anxiety. He endorses prior alcohol withdrawal symptoms but denies withdrawal seizures or DTs. In the ED the patient was noted to be tachycardic with positive occult blood. CT scan of the abdomen showed no acute findings, but did show upper abdominal varices. He was given IVF, IV anti-emetics and IV PPI. He will be admitted for further work up. GI bleeding. patient was started on IV PPI and octreotide. He was seen in consultation by GI. He underwent EGD with findings below. There was no active bleeding noted. GI recommended I oral PPI and outpatient follow-up. No further inpatient workup required. No further episodes of bleeding noted. H/H has remained stable. He is recommended to follow up with GI to review biopsy results. EGD results: 1. Esophageal varices, grade 1, nonbleeding. 2. Portal hypertensive gastropathy. Alcohol dependence. Patient was started on phenobarbital. He displayed no evidence of alcohol. Did not want to speak to someone for the care team as he is aware of available resources. The importance of complete alcohol cessation was discussed. Time Spent with Patient Time attestation: Total time spent providing and/or coordinating discharge services: Discharge coordination time: Greater than 30 minutes Quality: Stroke Does the patient have a stroke diagnosis?: No Physical Exam Vital Signs: Vital Signs: Last Vital Signs Temp 97.8 F 09/19/21 11:20 Pulse 78 09/19/21 12:05 Resp 16 09/19/21 12:05 BP 155/92 H 09/19/21 12:05 Pulse Ox 96 09/19/21 12:05 BMI result Body Mass Index 34.9 Const: General: cooperative, healthy appearing, comfortable, no acute distress, alert and awake Nutritional Appearance: well nourished Orientation/consciousness: patient oriented x3 HENMT: Head: Yes normocephalic and Yes atraumatic Eyes: Sclerae: sclerae normal Resp: Effort & Inspection: normal respiratory effort and no respiratory distress Cardio: Rate: regular rate Rhythm: regular rhythm GI: Inspection: No distended Palpation (GI): Soft to palpation and nontender Neuro: General: patient oriented x3 Cranial nerves: Yes CN's II-XII intact bilaterally and Yes Bilaterally intact EOM present DS: Data Data Completed and Pending Pending studies at discharge: Pending at discharge 09/19/21 08:24 Surgical [PTH] Routine Labs on day of discharge: Laboratory Results - last 24 hr 09/18/21 09/18/21 09/18/21 09:31 13:28 19:16 WBC RBC Hgb 13.6 L 12.7 L Hct 41.7 L 38.1 L MCV MCH MCHC RDW Plt Count MPV Absolute Nucleated RBC Nucleated RBC % (auto) Sodium Potassium Chloride Carbon Dioxide Anion Gap BUN Creatinine Estim Creat Clear Calc Estimated GFR Random Glucose Calcium Magnesium 1.8 Total Bilirubin Direct Bilirubin AST ALT Alkaline Phosphatase Total Protein Albumin 09/19/21 09/19/21 09/19/21 00:50 07:27 07:27 WBC 5.7 RBC 4.55 L Hgb 12.3 L 12.3 L Hct 37.7 L 39.4 L MCV 86.6 MCH 27.0 MCHC 31.2 RDW 15.9 Plt Count 96 L D MPV 10.1 Absolute Nucleated RBC 0.000 Nucleated RBC % (auto) 0.0 Sodium 140 Potassium 3.9 Chloride 111 H Carbon Dioxide 23 Anion Gap 10 L BUN 15 Creatinine 0.84 Estim Creat Clear Calc 154.0 Estimated GFR > 60 Random Glucose 113 Calcium 7.8 L D Magnesium Total Bilirubin Direct Bilirubin AST ALT Alkaline Phosphatase Total Protein Albumin 09/19/21 07:27 WBC RBC Hgb Hct MCV MCH MCHC RDW Plt Count MPV Absolute Nucleated RBC Nucleated RBC % (auto) Sodium Potassium Chloride Carbon Dioxide Anion Gap BUN Creatinine Estim Creat Clear Calc Estimated GFR Random Glucose Calcium Magnesium Total Bilirubin 1.3 H Direct Bilirubin 0.6 H AST 72 H ALT 44 H Alkaline Phosphatase 60 Total Protein 7.0 Albumin 3.4 L Discharge Plan Discharge Patient Disposition: Home, Self-Care Discharge Diagnosis: upper GI bleeding alcohol Referrals: Moreno Garza [Physician] - 2 Weeks Juan Miguel Asif MD [Primary Care Provider] - 1 Week Discharge Medications: New omeprazole 40 mg capsule,delayed release(DR/EC) 40 mg PO DAILY 30 Days Qty: 30 RF: 0 thiamine HCl (vitamin B1) 100 mg tablet 100 mg PO DAILY Qty: 30 RF: 0 folic acid 1 mg tablet 1 mg PO DAILY Qty: 30 RF: 0 Continued methadone [Methadose] 10 mg/mL Concentrate 105 mg PO DAILY RF: 0 Discharge Orders: Discharge Order (Routine); Ordered 09/19/21 Ordered By: Cindy Louie Activity on Discharge: As tolerated Stand Alone Forms: Patient Portal Discharge page Care Plan Goals: see below Health Concerns: Upper GI bleeding alcohol dependence Plan of Treatment: abstain from alcohol use take omeprazole as prescribed call to schedule follow with GI as outpatient if you don't already have appointment return with any further bleeding Assessment: see discharge summary
== END 2021-09-19 13:05 | disposition home or self-care (01) | DRG 254 ==
LOC: HO.ED 12:54 → HO.EDOVER 13:10 → HO.S3 09-19 11:35 → HO.EDOVER 09-19 11:49
PROVIDERS: Internal Medicine Gastroenterology; Admitting Provider Family Medicine; Emergency Provider Emergency Medicine; PCP Internal Medicine; Visit Provider Physician Assistant Medical
PROC: 0DJ08ZZ Inspection of Upper Intestinal Tract, Via Natural or Artificial Opening Endoscopic (ICD-10-PCS; CPT 43235; principal; 2021-09-19 08:10)
DX: K92.1 Melena (principal); K76.6 Portal hypertension; K70.30 Alcoholic cirrhosis of liver without ascites; I85.10 Secondary esophageal varices without bleeding; F11.20 Opioid dependence, uncomplicated; K31.89 Other diseases of stomach and duodenum; F32.A Depression, unspecified; F10.239 Alcohol dependence with withdrawal, unspecified; R94.31 Abnormal electrocardiogram [ECG] [EKG]; Z20.822 Contact with and (suspected) exposure to COVID-19; Z87.891 Personal history of nicotine dependence; Z79.899 Other long term (current) drug therapy
CPT/HCPCS: 43239; 36415; 73620; 74176; 80048; 80076; 82272; 83735; 84484; 85014; 85018; 85025; 85027; 85610; 85730; 87635; 88305; 88342; 93005; 96372; 96374; 96375; 99219; 99285; J2354; J2405; J2560; J3475

== ENCOUNTER 2021-09-25 15:28 | Emergency (ER) | payer OTHER, SELFPAY ==
--- NOTE | 2021-09-25 | ECG_ITS ---
Test Reason : COVID SYMPTOMS Blood Pressure : / mmHG Vent. Rate : 109 BPM Atrial Rate : 109 BPM P-R Int : 152 ms QRS Dur : 092 ms QT Int : 348 ms P-R-T Axes : 047 022 025 degrees QTc Int : 468 ms Sinus tachycardia Otherwise normal ECG When compared with ECG of 18-SEP-2021 14:51, Nonspecific T wave abnormality no longer evident in Anterior leads Referred By: Generic ED Physician Electronically Signed By:Wale Kaba
--- NOTE | ~2021-09-25 | XR_ITS ---
EXAMINATION: XR CHEST CLINICAL INFORMATION: Covid positive, dizziness. COMPARISON: Chest 12/26/2020 TECHNIQUE: 2 views of the chest were obtained. FINDINGS: No significant abnormality is noted involving the heart, lungs, mediastinum, bony thorax or soft tissues. XR/XR chest 2V IMPRESSION: Unremarkable chest examination.
[2021-09-25 17:40] VITALS: BP 114/93; PULSE 112; RESP 22; TEMP 38.1; O2SAT 100; BMI 36.3
[2021-09-25 18:11] LABS: MANUAL DIFF FLAG NO
[2021-09-25 18:21] LABS: COVID-19 Test Positive (Negative)
[2021-09-25 18:32] LABS: Basophils Percent Auto 0.4 % (0-2); Hematocrit 34.8 % (42.0-52.0); Hemoglobin 11.8 g/dl (14.0-18.0); Imm Gran Abs Auto 0.01 X10*3/uL (0.00-0.03); Imm Gran Pct Auto 0.4 % (0.0-0.4); Lymphocytes Absolute Auto 0.3 X10*3/uL (1.2-4.9); Lymphocytes Percent Auto 10.5 % (20-40); Mean Corpuscular HGB Conc 33.9 g/dl (31.0-36.0); Mean Corpuscular Hemoglobin 28.2 pg (27.0-33.0); Mean Corpuscular Volume 83.1 fL (80.0-98.0); Mean Platelet Volume 10.1 fL (9.4-12.4); Monocytes Absolute Auto 0.5 X10*3/uL (0.1-1.2); Monocytes Percent Auto 17.6 % (2-11); Neutrophils Absolute Auto 1.9 x10*3/uL (2.0-8.3); Neutrophils Percent Auto 71.1 % (45-73); Red Blood Count 4.19 X10*6/uL (4.60-5.80); Red Cell Distribution Width 16.2 % (11.0-16.0); White Blood Count 2.7 X10*3/uL (4.8-10.8)
[2021-09-25 18:35] LABS: Anion Gap 15 (12-20); Blood Urea Nitrogen 8 mg/dL (9-16); Calcium 9.1 mg/dL (8.4-10.2); Carbon Dioxide 23 mmol/L (22-29); Chloride 102 mmol/L (96-108); Creatinine Clr Calc Pharmacy 123.1; Estimated Glomerular Filt Rate > 60; Glucose Random 100 mg/dL (60-115); Potassium 4.4 mmol/L (3.3-5.1); Sodium 136 mmol/L (135-145)
[2021-09-25 18:49] LABS: Platelet Count 93 X10*3/uL (160-400)
[2021-09-25 20:29] LABS: Troponin-I High Sensitivity 3.5 ng/L (<3.5-35.0)
[2021-09-25 20:35] LABS: Alanine Aminotransferase 46 U/L (0-40); Albumin Level 4.1 g/dL (3.5-5.0); Alkaline Phosphatase 75 U/L (39-117); Aspartate Amino Transferase 58 U/L (5-37); Bilirubin Direct 0.4 mg/dL (0.0-0.5); Bilirubin Total 0.8 mg/dL (0.0-1.0); Lipase 28 U/L (8-78); Magnesium 1.9 mg/dL (1.6-2.6)
[2021-09-25 20:41] VITALS: BP 137/75; PULSE 104; RESP 22; TEMP 37.5; O2SAT 100
[2021-09-25] MEDS: Acetaminophen 325 MG TABLET 650 MG PO (20:42)
--- NOTE | 2021-09-25 20:48 | PC.NURSE ---
pt c/o nausea, mena aware. plan for po zofran
--- NOTE | 2021-09-25 20:49 | ED_ITS ---
HPI - General Adult General Chief complaint: Weakness Stated complaint: Dizzy, Covid Symptoms, 103 fever Time Seen by Provider: 09/25/21 19:43 Source: patient Mode of arrival: ambulatory History of Present Illness HPI narrative: 45-year-old male with a PMHx ETOH abuse S/P discharge from our facility on 09/19 for +occult stool and esophageal varices on EGD, presenting to the ED complaining of fever, headache, generalized fatigue / weakness, chills, nausea, diarrhea, dry cough and mild SOB x today. Admits was exposed to COVID- 19 today. Denies sore throat, ear pain, chest pain, pedal edema, recent travel, history of clots, melena, bloody stools. Reports last drink 3 days ago Onset (ago): hour(s) Related Data Home Medications Medication Instructions Recorded Confirmed methadone 10 mg/mL oral 105 mg PO DAILY 09/18/21 09/18/21 concentrate (Methadose) Previous Rx's Medication Instructions Recorded folic acid 1 mg tablet 1 mg PO DAILY #30 tab 09/19/21 omeprazole 40 mg capsule,delayed 40 mg PO DAILY 30 Days #30 cap 09/19/21 release thiamine HCl (vitamin B1) 100 mg 100 mg PO DAILY #30 tab 09/19/21 tablet Allergies Allergy/AdvReac Type Severity Reaction Status Date / Time No Known Allergies Allergy Verified 03/31/21 17:21 [No Known Allergies*] Review of Systems Review of Systems: Constitutional: + Fever, + Chills, + Fatigue, + Malaise ENT/Mouth: No Hearing loss, No Ear Pain, No Nasal Congestion, No Sinus Pain, No Hoarseness, No sore throat Eyes: No Eye Pain, No Swelling, No Discharge, No Vision Changes Cardiovascular: No Chest Pain, + SOB, No Edema, No Palpitations Respiratory: + Cough, No Sputum, No Wheezing, No Dyspnea Gastrointestinal: + Nausea, No Vomiting, + Diarrhea, No Constipation, No Abdominal pain, no melena, no bloody stools Genitourinary: No Dysuria, No Urinary Frequency, No Hematuria, No Urgency, No Flank Pain Musculoskeletal: No joint pain, No Myalgias, No Joint Swelling Skin: No Skin Lesions, No rash Neuro: + Weakness, No Dizziness, + Headache Yes all other systems are reviewed and are negative [facility] Past Medical History Attestation statement: The following information was validated with the patient. Medical History Alcoholism Alcoholism and drug addiction in family Cirrhosis Liver cirrhosis Major depression Pre-op examination Surgical History History of appendectomy Hx of esophagogastroduodenoscopy Family History Family History Father No problems noted. Mother Chronic mental illness Family/Other Depression Substance abuse Social History Social History Housing: House Alcohol intake: current Alcohol intake frequency: 3 or more drinks per day Alcohol type: beer Patient Tobacco Use Status: Former Tobacco user Quit Date: 1 yr ago Cigarettes Per Day: 4 e-Cigarette/Vaping Use: Never Used Second Hand Smoke Exposure: No Substance Use Type: Heroin and IV Drugs Advance Directives: Yes Advance Directives on File: Yes Advance Directives Date on File: 01/03/21 service: No Current occupational status: unemployed Physical Exam Vital Signs: Vital Signs: Last Vital Signs Temp 100.0 F 09/25/21 21:40 Pulse 90 09/25/21 21:40 Resp 18 09/25/21 21:40 BP 131/79 09/25/21 21:40 Pulse Ox 97 09/25/21 21:40 BMI result Body Mass Index 36.3 Const: General: cooperative, healthy appearing, alert, awake and anxious Orientation/consciousness: patient oriented x3 Limitations: no limitations HENMT: Head: Yes normal to inspection Ears: hearing grossly normal bilaterally General nose exam: Normal external nose present Face and sinus: Yes normal facial exam Eyes: General: appearance normal, both eyes and all related structures EOM: EOMs intact bilaterally Neck: Neck: Yes normal visual inspection and Yes no meningeal signs Resp: Effort & Inspection: normal respiratory effort and no respiratory distress Auscultation: clear to auscultation bilaterally, no rales, no rhonchi and no wheezes Cardio: Rate: regular rate and tachycardic Heart sounds: S1 normal heart sound present and S2 normal heart sound present GI: Inspection: Yes normal to inspection Palpation (GI): Soft to palpation, nontender, no guarding and not rigid Skin: Rashes: no rashes Wounds: no wounds Neuro: General: patient oriented x3 and no meningeal signs Gait exam (Neuro): Normal gait present Extrem: General: Yes normal to inspection, Yes no pedal edema and Yes no calf tenderness Course Course Course Narrative: - leukopenia 2.7. H&H stable. AST/ ALT chronically elevated. Troponin negative - COVID-19 positive XR chest 2V IMPRESSION: Unremarkable chest examination >5-- vital signs with mild improved with fever reduction. Temp still 99.5 > Motrin ordered -2151-- patient's vital signs improved, anxiety improved, discussed worrisome signs and symptoms and strict return precautions including COVID-19 precautions. Patient verbalized understanding and feels safe for discharge home at this time Medical Decision Making MDM Narrative Medical decision making narrative: 45-year-old male with a PMHx ETOH abuse S/P discharge from our facility on 09/19 for +occult stool and esophageal varices on EGD, presenting to the ED complaining of fever, headache, generalized fatigue / weakness, chills, nausea, diarrhea, dry cough and mild SOB x today. On exam initially febrile, tachycardic and tachypneic likely from fever, patient anxious which also contributing to VS, lungs CTA, no pedal edema, abdomen soft/ nontender. Concern for COVID-19 /viral syndrome. Low concern for pneumonia/PE or ACS plan: EKG, labs, COVID-19 testing, antipyretics, re-evaluate low concern for severe sepsis as likely viral etiology Medical Records Medical records reviewed: Yes I reviewed the patient's medical records. Lab Data Lab results reviewed: Yes I reviewed the patient's lab results. Result diagrams: 09/25/21 17:49 09/25/21 17:49 Labs: Lab Results 09/25/21 09/25/21 09/25/21 Range/Units 17:49 17:49 17:49 WBC 2.7 L (4.8-10.8) X10*3/uL RBC 4.19 L (4.60-5.80) X10*6/uL Hgb 11.8 L (14.0-18.0) g/dl Hct 34.8 L (42.0-52.0) % MCV 83.1 (80.0-98.0) fL MCH 28.2 (27.0-33.0) pg MCHC 33.9 (31.0-36.0) g/dl RDW 16.2 H (11.0-16.0) % Plt Count 93 L (160-400) X10*3/uL MPV 10.1 (9.4-12.4) fL Immature Gran % (Auto) 0.4 (0.0-0.4) % Neut % (Auto) 71.1 (45-73) % Lymph % (Auto) 10.5 L (20-40) % [place] % (Auto) 17.6 H (2-11) % Eos % (Auto) 0.0 (0-4) % Baso % (Auto) 0.4 (0-2) % Lymph # (Auto) 0.3 L (1.2-4.9) X10*3/uL [place] # (Auto) 0.5 (0.1-1.2) X10*3/uL Eos # (Auto) 0.0 (0.0-0.4) X10*3/uL Baso # (Auto) 0.0 (0.0-0.2) X10*3/uL Abs Immat Gran (auto) 0.01 (0.00-0.03) X10*3/uL Absolute Neuts (auto) 1.9 L (2.0-8.3) x10*3/uL Absolute Nucleated RBC 0.000 (0.0-0.012) X10*3/uL Nucleated RBC % (auto) 0.0 (0.0-0.2) /100WBC Sodium 136 (135-145) mmol/L Potassium 4.4 (3.3-5.1) mmol/L Chloride 102 (96-108) mmol/L Carbon Dioxide 23 (22-29) mmol/L Anion Gap 15 (12-20) BUN 8 L (9-16) mg/dL Creatinine 1.07 (0.5-1.4) mg/dL Estim Creat Clear Calc 123.1 Estimated GFR > 60 Random Glucose 100 (60-115) mg/dL Calcium 9.1 D (8.4-10.2) mg/dL Magnesium 1.9 (1.6-2.6) mg/dL Total Bilirubin 0.8 (0.0-1.0) mg/dL Direct Bilirubin 0.4 (0.0-0.5) mg/dL AST 58 H (5-37) U/L ALT 46 H (0-40) U/L Alkaline Phosphatase 75 D (39-117) U/L Troponin I High Sens (<3.5-35.0) ng/L Total Protein 8.0 (6.5-8.0) g/dL Albumin 4.1 D (3.5-5.0) g/dL Lipase 28 (8-78) U/L COVID-19 (ANABELLA) Positive A (Negative) COVID-19 Clin Com See Note 09/25/21 Range/Units 17:49 WBC (4.8-10.8) X10*3/uL RBC (4.60-5.80) X10*6/uL Hgb (14.0-18.0) g/dl Hct (42.0-52.0) % MCV (80.0-98.0) fL MCH (27.0-33.0) pg MCHC (31.0-36.0) g/dl RDW (11.0-16.0) % Plt Count (160-400) X10*3/uL MPV (9.4-12.4) fL Immature Gran % (Auto) (0.0-0.4) % Neut % (Auto) (45-73) % Lymph % (Auto) (20-40) % [place] % (Auto) (2-11) % Eos % (Auto) (0-4) % Baso % (Auto) (0-2) % Lymph # (Auto) (1.2-4.9) X10*3/uL [place] # (Auto) (0.1-1.2) X10*3/uL Eos # (Auto) (0.0-0.4) X10*3/uL Baso # (Auto) (0.0-0.2) X10*3/uL Abs Immat Gran (auto) (0.00-0.03) X10*3/uL Absolute Neuts (auto) (2.0-8.3) x10*3/uL Absolute Nucleated RBC (0.0-0.012) X10*3/uL Nucleated RBC % (auto) (0.0-0.2) /100WBC Sodium (135-145) mmol/L Potassium (3.3-5.1) mmol/L Chloride (96-108) mmol/L Carbon Dioxide (22-29) mmol/L Anion Gap (12-20) BUN (9-16) mg/dL Creatinine (0.5-1.4) mg/dL Estim Creat Clear Calc Estimated GFR Random Glucose (60-115) mg/dL Calcium (8.4-10.2) mg/dL Magnesium (1.6-2.6) mg/dL Total Bilirubin (0.0-1.0) mg/dL Direct Bilirubin (0.0-0.5) mg/dL AST (5-37) U/L ALT (0-40) U/L Alkaline Phosphatase (39-117) U/L Troponin I High Sens 3.5 (<3.5-35.0) ng/L Total Protein (6.5-8.0) g/dL Albumin (3.5-5.0) g/dL Lipase (8-78) U/L COVID-19 (ANABELLA) (Negative) COVID-19 Clin Com Discharge Plan Discharge Clinical Impression: COVID-19 Patient Disposition: Home, Self-Care Instructions: COVID-19 (Coronavirus Disease 2019) (ED) Additional Instructions: your blood work was reassuring today in the emergency department. Her chest x- ray is unremarkable. You have COVID-19. Please monitor your temperatures closely at home. Take Tylenol and Motrin to control fever At this time you will be okay for discharge. Please self isolate for 10-14 days. Do not expose yourself to others. You may not go to work or school. Please continue to follow cold instructions and wash your hands frequently. You may take Tylenol / Motrin as directed on the bottle for pain or fever. If you have constant or persistent shortness of breath, fever unresolved with medications, chest pain, or your unable to eat or drink please return to the ED CDC Guidelines for home isolation: - Stay away from others - WEAR A MASK if you are sick AND STAY HOME - Cover your mouth and nose with a tissue when you cough or sneeze. Dispose of tissues in a lined trash can and wash your hands immediately with soap and water for at least 20 seconds. If soap and water are not available, clean hands with alcohol-based hand plant production manager that contains at least 60% alcohol. - Clean your hands often with soap and water for at least 20 seconds - Avoid touching your eyes, nose and mouth with unwashed hands - Do not share dishes, drinking glasses, cups, eating utensils, towels, or bedding with other people in your home. After using these items, wash them thoroughly with soap and water or put in the software clerk. - Clean high-touch surfaces in your isolation area ( sick room and bathroom) every day; let a caregiver clean and disinfect high-touch surfaces in other areas of the home. Clean the area or item with soap and water or another detergent if it is dirty. Then, use a household disinfectant. - Limit contact with pets and animals: If you must care for a pet, wash your hands before and after interacting with them) Prescriptions: No Action methadone [Methadose] 10 mg/mL Concentrate 105 mg PO DAILY RF: 0 omeprazole 40 mg capsule,delayed release(DR/EC) 40 mg PO DAILY 30 Days Qty: 30 RF: 0 thiamine HCl (vitamin B1) 100 mg tablet 100 mg PO DAILY Qty: 30 RF: 0 folic acid 1 mg tablet 1 mg PO DAILY Qty: 30 RF: 0 Referrals: Juan Miguel Asif MD [Primary Care Provider] - 3 days Stand Alone Forms: Work/School Release
[2021-09-25] MEDS: Ibuprofen 400 MG TABLET PO (20:54)
[2021-09-25] MEDS: Ondansetron ODT 4 MG TAB.RAPDIS TRANSLINGU (20:54)
--- NOTE | 2021-09-25 21:15 | PC.NURSE ---
This RN spoke with ERICK Maya regarding reglan order. Zulma states ordered in error. No need to admin med
--- NOTE | 2021-09-25 21:38 | PC.NURSE ---
pt sonja dietrich, reports RESENDIZ is persistent but improved at 6/10 reports BLE remains 10/10 and aching in nature. pt states the pain is in posterior distal thigh, behind knees, and posterior calves with pain also present in right distal calvert. no heat/redness noted. this rn to make mena rubin aware.
[2021-09-25 21:40] VITALS: BP 131/79; PULSE 90; RESP 18; TEMP 37.8; O2SAT 97
== END 2021-09-25 22:12 | disposition home or self-care (01) ==
PROVIDERS: Physician Assistant; Emergency Provider Internal Medicine; PCP Internal Medicine
DX: U07.1 COVID-19 (principal); R42 Dizziness and giddiness; Z79.899 Other long term (current) drug therapy
CPT/HCPCS: 71046; 80048; 80076; 83690; 83735; 84484; 85025; 87635; 93005; 96374; 96375; 99284

== ENCOUNTER 2022-09-26 09:31 | Outpatient (REF) | payer OTHER, SELFPAY ==
--- NOTE | ~2022-09-26 | XR_ITS ---
EXAMINATION: XR FOOT, RIGHT CLINICAL INFORMATION: Pain COMPARISON: None TECHNIQUE: AP, lateral, and oblique views of the right foot. FINDINGS: Mild hallux valgus deformity. Calcaneal enthesopathy. No acute fracture or dislocation. XR/XR foot RT min 3V IMPRESSION: Mild hallux valgus deformity. Calcaneal enthesopathy.
[2022-09-26 09:40] LABS: MANUAL DIFF FLAG NO
[2022-09-26 10:18] LABS: Basophils Percent Auto 0.3 % (0-2); Eosinophils Percent Auto 0.8 % (0-4); Hematocrit 39.2 % (42.0-52.0); Hemoglobin 12.7 g/dl (14.0-18.0); Imm Gran Abs Auto 0.01 X10*3/uL (0.00-0.03); Imm Gran Pct Auto 0.3 % (0.0-0.4); Lymphocytes Absolute Auto 1.4 X10*3/uL (1.2-4.9); Lymphocytes Percent Auto 36.9 % (20-40); Mean Corpuscular HGB Conc 32.4 g/dl (31.0-36.0); Mean Corpuscular Hemoglobin 26.6 pg (27.0-33.0); Mean Platelet Volume 10.9 fL (9.4-12.4); Monocytes Absolute Auto 0.2 X10*3/uL (0.1-1.2); Monocytes Percent Auto 6.3 % (2-11); Neutrophils Percent Auto 55.4 % (45-73); Platelet Count 91 X10*3/uL (160-400); Red Blood Count 4.78 X10*6/uL (4.60-5.80); Red Cell Distribution Width 14.7 % (11.0-16.0); White Blood Count 3.7 X10*3/uL (4.8-10.8)
[2022-09-26 10:58] LABS: Erythrocyte Sedimentation Rate 18 MM/HR (0-15)
[2022-09-26 11:29] LABS: Anion Gap 9 (12-20); Blood Urea Nitrogen 9 mg/dL (9-16); Calcium 8.5 mg/dL (8.4-10.2); Carbon Dioxide 27 mmol/L (22-29); Chloride 106 mmol/L (96-108); Estimated Glomerular Filt Rate > 60; Glucose Random 100 mg/dL (60-115); Potassium 3.7 mmol/L (3.3-5.1); Sodium 138 mmol/L (135-145); Uric Acid 5.6 mg/dL (3.4-7.0)
== END 2022-09-26 09:32 | disposition home or self-care (01) ==
LOC: HO.LAB 09:31
PROVIDERS: PCP Internal Medicine; Visit Provider Nurse Practitioner Family
DX: M79.674 Pain in right toe(s) (principal)
CPT/HCPCS: 36415; 73630; 80048; 84550; 85025; 85652

== ENCOUNTER 2022-11-27 11:14 | Outpatient (REF) | payer OTHER, SELFPAY ==
[2022-11-27 12:24] LABS: Hematocrit 38.2 % (42.0-52.0); Hemoglobin 12.3 g/dl (14.0-18.0); Mean Corpuscular HGB Conc 32.2 g/dl (31.0-36.0); Mean Corpuscular Hemoglobin 26.7 pg (27.0-33.0); Mean Platelet Volume 11.1 fL (9.4-12.4); Red Cell Distribution Width 14.7 % (11.0-16.0); White Blood Count 4.7 X10*3/uL (4.8-10.8)
[2022-11-27 12:25] LABS: Platelet Count 90 X10*3/uL (160-400)
[2022-11-27 13:04] LABS: Alanine Aminotransferase 25 U/L (0-40); Albumin Level 3.6 g/dL (3.5-5.0); Alkaline Phosphatase 73 U/L (39-117); Anion Gap 11 (12-20); Aspartate Amino Transferase 38 U/L (5-37); Bilirubin Direct 0.3 mg/dL (0.0-0.5); Bilirubin Total 0.8 mg/dL (0.0-1.0); Blood Urea Nitrogen 9 mg/dL (9-16); Calcium 8.2 mg/dL (8.4-10.2); Carbon Dioxide 26 mmol/L (22-29); Chloride 108 mmol/L (96-108); Cholesterol 134 mg/dL; Estimated Glomerular Filt Rate > 60; Glucose Random 87 mg/dL (60-115); HDL Cholesterol 54 mg/dL; LDL Cholesterol Calculated 70 mg/dl; Potassium 3.9 mmol/L (3.3-5.1); Sodium 141 mmol/L (135-145); Total Protein 7.1 g/dL (6.5-8.0); Triglycerides 54 mg/dL
[2022-11-27 13:07] LABS: Erythrocyte Sedimentation Rate 12 MM/HR (0-15)
[2022-11-27 13:12] LABS: Thyroid Stimulating Hormone 1.68 uIU/mL (0.32-4.0)
== END 2022-11-27 11:15 | disposition home or self-care (01) ==
LOC: HO.LAB 11:14
PROVIDERS: PCP Internal Medicine; Visit Provider Internal Medicine
DX: K74.60 Unspecified cirrhosis of liver (principal)
CPT/HCPCS: 36415; 80048; 80061; 80076; 84443; 85027; 85652

== ENCOUNTER 2023-09-20 23:35 | Emergency (ER) | payer OTHER, SELFPAY ==
--- NOTE | 2023-09-20 | ECG_ITS ---
Test Reason : CHEST PRESSURE Blood Pressure : / mmHG Vent. Rate : 098 BPM Atrial Rate : 098 BPM P-R Int : 150 ms QRS Dur : 096 ms QT Int : 382 ms P-R-T Axes : 041 016 013 degrees QTc Int : 487 ms Normal sinus rhythm Prolonged QT Abnormal ECG When compared with ECG of 25-SEP-2021 17:59, No significant change was found Referred By: Generic ED Physician Electronically Signed By:JESSICA RAMIREZ
--- NOTE | ~2023-09-20 | XR_ITS ---
EXAMINATION: XR CHEST, 2 VIEWS CLINICAL INFORMATION: Chest pain, shortness of breath, rule out Pneumonia COMPARISON: 09/25/2021 TECHNIQUE: PA and lateral views of the chest were obtained. FINDINGS: EKG leads overlie the lower chest. Lungs are mildly hyperexpanded though clear. No consolidation, pneumothorax, or pleural effusion. Cardiac and mediastinal contours are normal. Pulmonary vasculature is unremarkable. Trachea is midline. Osseous structures are unremarkable. XR/XR chest 2V IMPRESSION: No acute cardiopulmonary findings.
[2023-09-20 23:54] VITALS: BP 135/79; BP 138/79; PULSE 115; PULSE 96; RESP 20; TEMP 36.9; O2SAT 94; O2SAT 98; BMI 37.9
--- NOTE | 2023-09-21 00:06 | ED_ITS ---
HPI - Chest Pain General Chief Complaint: General Medical Stated Complaint: CHEST PRESSURE, RESENDIZ, DYSPNEA Time Seen by Provider: 09/20/23 23:56 Source: patient Mode of arrival: EMS History of Present Illness HPI narrative: 47-year-old male with a history of alcohol use disorder, cirrhosis, depression, heroin use disorder, [id number] who presents emergency department for evaluation of chest pain, shortness of breath, headache, confusion, sore throat, nausea and diarrhea. Patient states that his symptoms came on approximately 5 hours prior to coming to emergency department. The complains of a tightness he points to the center of his chest. The tightness is worse with movement and with coughing. States that he has an occasional, nonproductive cough. He states that he has had chills but no fever. He did have a sore throat. Patient states that he has a history of alcohol use disorder but only occasionally drinks and has cut back significantly. Patient also has a history of heroin use disorder, he states he last injected heroin several years prior and is in a methadone program. Related Data Home Medications Medication Instructions Recorded Confirmed methadone 10 mg/mL oral 105 mg PO DAILY 09/18/21 11/28/22 concentrate (Methadose) doxepin 25 mg capsule 25 mg PO BEDTIME 11/27/22 11/28/22 venlafaxine 150 mg 150 mg PO DAILY 11/27/22 11/28/22 capsule,extended release 24 hr Allergies Allergy/AdvReac Type Severity Reaction Status Date / Time No Known Allergies Allergy Verified 11/28/22 07:39 [No Known Allergies*] Review of Systems 2 Review of Systems: Yes all other systems are reviewed and are negative [facility] Past Medical History [facility] Narrative: Social history: Denies tobacco use. He states that he occasionally drinks alcohol. He denies drug use but has a history of injection heroin use, last use 2 years prior and states he has in a methadone program. Onset Date is defined in the Problem List Problems that require an onset date and time if occurred within 24 hrs of arrival to the ED Aortic Dissection and Rupture; Neurologic impairment; Cardiopulmonary Arrest; Endotracheal Intubation; Insertion or Replacement of Mechanical Circulatory Assist Device Medical History Liver cirrhosis Cirrhosis Pre-op examination Alcoholism and drug addiction in family Alcoholism Major depression Surgical History Hx of esophagogastroduodenoscopy History of appendectomy Family History Family History Father No problems noted. Mother Chronic mental illness Family/Other Depression Substance abuse Other Mental health disorder Social History Social History Housing: House Alcohol intake: current Alcohol intake frequency: a few times a month Alcohol type: beer Patient Tobacco Use Status: Former Tobacco user Quit Date: 1 yr ago Cigarettes Per Day: 4 Smoked in Last 30 Days: No e-Cigarette/Vaping Use: Never Used Second Hand Smoke Exposure: No Use of substances other than those prescribed or required for medical reasons: Yes Substance Use Type: Marijuana Substance Use Frequency: Occasionally Last Used Substance: Days (ago) Advance Directives: Yes Advance Directives on File: Yes Advance Directives Date on File: 01/03/21 service: No Current occupational status: unemployed Cognitive needs: No Hearing needs: No Vision needs: No Physical Exam 2 Vital Signs: Vital Signs: Last Vital Signs Temp 98.6 F 09/21/23 01:54 Pulse 85 09/21/23 01:54 Resp 17 09/21/23 01:54 BP 133/65 09/21/23 01:54 Pulse Ox 95 09/21/23 01:54 O2 Del Method Nasal Cannula 09/21/23 01:54 O2 Flow Rate 2 09/21/23 01:54 BMI result Body Mass Index 37.9 Vital signs were normal Exam: General: Awake, alert , appears to be anxious Head: Normocephalic, atraumatic EENT: PERRL, Lids normal, sclera normal, conjunctiva normal, nose normal , ears normal, throat without erythema or exudates Neck: Supple, no adenopathy, no trachea midline or C-spine tenderness Lung: breath sounds symmetric, no wheezing, rales or rhonchi Chest: symmetric movement, nontender, bilateral gynecomastia Heart: regular rate and rhythm, normal S1, S2 no murmurs or rubs Abdomen: soft, non-tender, nondistended, normal bowel sounds Back: no vertebral tenderness, no CVAT Extremities: no deformities, moves all extremities symmetrically Neuro: Awake, alert, oriented, normal speech, cranial nerves intact, moves all extremities symmetrically Psych: Pleasant, cooperative Medications Administered Discontinued Medications Generic Name Dose Route Start Last Admin Trade Name Anil PRN Reason Stop Dose Admin Sodium Chloride 1,000 mls @ 999 mls/hr 09/21/23 00:03 09/21/23 01:56 Ns IV 09/21/23 01:03 Infused .Q1H1M STA Infusion Ketorolac Tromethamine 15 mg 09/21/23 00:03 09/21/23 00:57 Ketorolac Tromethamine 15 Mg/Ml Vial IVPUSH 09/21/23 00:04 15 mg ONCE STA Administration Lorazepam 2 mg 09/21/23 01:48 09/21/23 01:53 Lorazepam 1 Mg Tablet PO 09/21/23 01:49 2 mg ONCE STA Administration Ondansetron HCl 4 mg 09/21/23 00:03 09/21/23 00:57 Ondansetron Hcl 4 Mg/2 Ml Vial IVPUSH 09/21/23 00:04 4 mg ONCE ONE Administration Medical Decision Making Medical Decision Making [facility] Narrative: 47-year-old male with a history of alcohol use disorder, cirrhosis, depression, heroin use disorder, [id number] who presents emergency department for evaluation of chest pain, shortness of breath, headache, confusion, sore throat, nausea and diarrhea with symptoms starting approximately 5 hours prior to coming to the emergency department. Vital signs were normal. Patient did appear to be anxious, exam was otherwise unremarkable Following evaluation was ordered: CBC, CMP, BNP, D-dimer, PT/INR, PTT, troponin, lipase, ethanol level, drug screen urine, 12 EKG, two view chest x-ray Patient was treated with the following: Normal saline x1 L, Toradol 15 mg IV and Zofran 4 mg IV 03:14 My interpretation patient's laboratory evaluation is as follows: Pancytopenia WBC 4700, H&H 12 and 38, platelet count [id number] is chronic most likely related to cirrhosis AST and ALT elevated 67 and 43. High sensitive troponin I below detectable limits. COVID-19 influenza were negative. Ammonia was normal at 25. CK only slightly elevated at 220. Chest x-ray was unremarkable and EKG was unremarkable as well. Patient was given Ativan 2 mg orally and this did seem to improve his symptoms. Patient will be discharged home Differential Diagnosis Differential Diagnoses: The differential diagnosis associated with the presentation includes Differential diagnosis includes was not limited to pneumonia, viral illness, myocardial ischemia, myocardial infarction, pulmonary embolism, electrolyte abnormalities, anemia, alcohol intoxication , substance use Admission/Observation Consideration of admission/observation: Escalation of care including admission/observation considered Lab Data MDM Lab Attestation statement: I reviewed the patient's lab results. 09/21/23 00:15 Labs: Lab Results 09/21/23 09/21/23 Range/Units 00:15 02:03 PT 15.5 H (11.1-13.3) SEC INR 1.3 H (0.9-1.1) APTT 32.4 (26.0-36.4) SEC D-Dimer High Sensitivty < 150 NG/ML Sodium 137 (135-145) mmol/L Potassium 3.4 (3.3-5.1) mmol/L Chloride 103 (96-108) mmol/L Carbon Dioxide 26 (22-29) mmol/L Anion Gap 11 L (12-20) BUN 6 L (9-16) mg/dL Creatinine 0.86 (0.5-1.4) mg/dL Estim Creat Clear Calc 157.7 Estimated GFR > 60 Random Glucose 110 (60-115) mg/dL Calcium 7.9 L (8.4-10.2) mg/dL Total Bilirubin 1.6 H (0.0-1.0) mg/dL AST 67 H (5-37) U/L ALT 43 H (0-40) U/L Alkaline Phosphatase 76 (39-117) U/L Ammonia 25 (13-55) umol/L Total Creatine Kinase 220 H (38-174) U/L Troponin I High Sens < 2.7 (<3.5-35.0) ng/L B-Natriuretic Peptide 13 (<100) pg/mL Total Protein 7.8 (6.5-8.0) g/dL Albumin 3.6 (3.5-5.0) g/dL Lipase 23 (8-78) U/L Ethyl Alcohol 10 mg/dL COVID-19 (ANABELLA) Negative (Negative) COVID-19 Clin Com See Note Influenza Type A (TACO) Negative (Negative) Influenza Type B (TACO) Negative (Negative) Influenza A & B Note See Note Independent Interpretation I performed an independent interpretation of an: EKG and Plain X-Ray Interpretation: My independent interpretation of the patient's 12 lead EKG done at 23:54 hours is as follows My independent interpretation patient's two view chest x-ray is as follows: No acute disease Radiology Impression Discussion of test interpretation with radiology: I have reviewed the radiologist's reading. Radiologist Impression: XR chest 2V IMPRESSION: No acute cardiopulmonary findings. Dictated By: n Chronic Conditions Patient?s care impacted by: Other (Cirrhosis) Discharge Plan Discharge Clinical Impression: Chest pain, Acute dyspnea Patient Disposition: Home, Self-Care Instructions: Chest Pain (ED) Additional Instructions: Your laboratory evaluation was consistent with your cirrhosis and unchanged from your baseline labs which is reassuring. Your EKG was normal. Your troponin (marker of heart damage) was below detectable limits. This is good in suggests that your chest pain is not due to heart damage/heart attack. Your chest x-ray was normal. At this time I do not have a clear cause for your pain but I think it is located send you home. Continue taking medications as prescribed by your providers. Follow-up with your doctor in 2 days. Please return to the emergency department if your symptoms get worse or if you develop any symptoms that are concerning to you. Prescriptions: No Action methadone [Methadose] 10 mg/mL Concentrate 105 mg PO DAILY venlafaxine 150 mg capsule,extended release 24hr 150 mg PO DAILY doxepin 25 mg capsule 25 mg PO BEDTIME
[2023-09-21 00:27] LABS: INTERNATIONAL NORM RATIO 1.3 (0.9-1.1); Prothrombin Time 15.5 SEC (11.1-13.3)
[2023-09-21 00:30] LABS: Partial Thromboplastin Time 32.4 SEC (26.0-36.4)
[2023-09-21 00:37] LABS: COVID-19 Test Negative (Negative); IDNOW Serial# 152EDE1D
[2023-09-21 00:38] LABS: Alanine Aminotransferase 43 U/L (0-40); Albumin Level 3.6 g/dL (3.5-5.0); Alkaline Phosphatase 76 U/L (39-117); Anion Gap 11 (12-20); Aspartate Amino Transferase 67 U/L (5-37); Bilirubin Total 1.6 mg/dL (0.0-1.0); Blood Urea Nitrogen 6 mg/dL (9-16); Calcium 7.9 mg/dL (8.4-10.2); Carbon Dioxide 26 mmol/L (22-29); Chloride 103 mmol/L (96-108); Creatinine Clr Calc Pharmacy 157.7; Estimated Glomerular Filt Rate > 60; Ethanol 10 mg/dL; Glucose Random 110 mg/dL (60-115); Lipase 23 U/L (8-78); Potassium 3.4 mmol/L (3.3-5.1); Sodium 137 mmol/L (135-145); Total Protein 7.8 g/dL (6.5-8.0)
[2023-09-21 00:39] LABS: IDNOW Serial# 08D9AD1C; Influenza A Negative (Negative); Influenza B2 Negative (Negative)
[2023-09-21 00:41] LABS: B Type Natriuretic Peptide 13 pg/mL (<100); Troponin-I High Sensitivity < 2.7 ng/L (<3.5-35.0)
[2023-09-21] MEDS: ondansetron HCL 4 MG/2 ML VIAL IVPUSH (00:57)
[2023-09-21] MEDS: 0.9 % Sodium Chloride 1,000 ML 999 ML IV (00:57)
[2023-09-21] MEDS: Ketorolac Tromethamine 15 MG/ML VIAL IVPUSH (00:57)
[2023-09-21 01:00] LABS: D Dimer High Sensitivity < 150 NG/ML
--- NOTE | 2023-09-21 01:21 | PC.NURSE ---
pt placed on 2L NC, O2 88% on RA. now 93% w/ 2L. provider aware
[2023-09-21] MEDS: LORazepam 1 MG TABLET 2 MG PO (01:53)
[2023-09-21 01:54] VITALS: BP 133/65; PULSE 85; RESP 17; TEMP 37; O2SAT 95
[2023-09-21 02:14] LABS: Ammonia 25 umol/L (13-55)
[2023-09-21 03:31] VITALS: BP 136/83; PULSE 91; RESP 18; TEMP 36.8; O2SAT 94
== END 2023-09-21 03:39 | disposition home or self-care (01) ==
PROVIDERS: Emergency Provider Emergency Medicine Emergency Medical Services; PCP Internal Medicine
DX: R07.89 Other chest pain (principal); R06.02 Shortness of breath; Z79.899 Other long term (current) drug therapy; Z11.52 Encounter for screening for COVID-19; Z20.828 Contact with and (suspected) exposure to other viral communicable diseases
CPT/HCPCS: 36415; 71046; 80053; 80307; 82140; 82550; 83690; 83880; 84484; 85379; 85610; 85730; 87502; 87635; 93005; 96361; 96374; 96375; 99284; J1885; J2405

== ENCOUNTER → 2023-09-20 23:54 | Outpatient (BNV) | payer OTHER, SELFPAY | PROVIDERS: Emergency Provider Emergency Medicine Emergency Medical Services; PCP Internal Medicine; Visit Provider Internal Medicine | DX: I45.81 Long QT syndrome (principal) | CPT/HCPCS: 93010 ==

== ENCOUNTER 2023-09-22 07:51 | Inpatient (IN) | payer OTHER, SELFPAY ==
[2023-09-22] VITALS (15 sets, daily range): BP systolic 103–139; BP diastolic 57–85; PULSE 76–104; RESP 16–18; TEMP 36.1–37.4; O2SAT 92–99; BMI 39.5; BMI 38.3
--- NOTE | ~2023-09-22 | XR_ITS ---
EXAMINATION: XR ELBOW, LEFT CLINICAL INFORMATION: Rule out foreign body. Suspect a needle COMPARISON: None available. TECHNIQUE: AP, lateral, and oblique views of the left elbow. FINDINGS: The bones and soft tissues are normal. No fracture or joint effusion. Alignment is anatomic. Joint spaces are maintained. There is a radiopaque metallic needle high in the mid to upper arm only visualized on one view XR/XR elbow LT 2V IMPRESSION: 1. Unremarkable left elbow exam. 2. There is a radiopaque 1.4 cm long metallic needle high in the mid to upper arm only visualized on one view.
[2023-09-22 08:10] LABS: MANUAL DIFF FLAG NO
[2023-09-22 08:13] LABS: Appearance Urine Clear; Color Urine Yellow; Glucose Urine UA Negative (Negative); Leukocyte Esterase Urine Negative (Negative); Nitrite Urine Negative (Negative); UMIC TRIGGER UACC YES; Urine Blood Trace (Negative); Urine Ketones 15 mg/dL (Negative); Urine Protein Negative (Neg-Trace)
[2023-09-22 08:15] LABS: Bacteria Urine None Seen (None Seen); Hyaline Casts Urine 0-2 /LPF (0-2); Squamous Epithelial Cell Urine 0-2 /HPF (0-2); WBC Urine 0-5 /HPF (0-5)
[2023-09-22 08:21] LABS: Basophils Percent Auto 0.3 % (0-2); Eosinophils Percent Auto 0.2 % (0-4); Hematocrit 40.5 % (42.0-52.0); Hemoglobin 13.5 g/dl (14.0-18.0); Imm Gran Abs Auto 0.02 X10*3/uL (0.00-0.03); Imm Gran Pct Auto 0.3 % (0.0-0.4); Lymphocytes Percent Auto 15.2 % (20-40); Mean Corpuscular HGB Conc 33.3 g/dl (31.0-36.0); Mean Corpuscular Hemoglobin 28.3 pg (27.0-33.0); Mean Corpuscular Volume 84.9 fL (80.0-98.0); Mean Platelet Volume 11.3 fL (9.4-12.4); Monocytes Absolute Auto 0.5 X10*3/uL (0.1-1.2); Monocytes Percent Auto 7.8 % (2-11); Neutrophils Absolute Auto 4.9 x10*3/uL (2.0-8.3); Neutrophils Percent Auto 76.2 % (45-73); Red Blood Count 4.77 X10*6/uL (4.60-5.80); Red Cell Distribution Width 15.3 % (11.0-16.0); White Blood Count 6.4 X10*3/uL (4.8-10.8)
[2023-09-22 08:24] LABS: Platelet Count 64 X10*3/uL (160-400)
[2023-09-22 08:33] LABS: Alanine Aminotransferase 39 U/L (0-40); Albumin Level 3.5 g/dL (3.5-5.0); Alkaline Phosphatase 75 U/L (39-117); Anion Gap 10 (12-20); Aspartate Amino Transferase 57 U/L (5-37); Bilirubin Direct 0.5 mg/dL (0.0-0.5); Bilirubin Total 1.1 mg/dL (0.0-1.0); Blood Urea Nitrogen 12 mg/dL (9-16); Calcium 8.2 mg/dL (8.4-10.2); Carbon Dioxide 28 mmol/L (22-29); Chloride 102 mmol/L (96-108); Creatinine Clr Calc Pharmacy 175.5; Estimated Glomerular Filt Rate > 60; Glucose Random 134 mg/dL (60-115); Lipase 18 U/L (8-78); Potassium 3.3 mmol/L (3.3-5.1); Sodium 137 mmol/L (135-145); Total Protein 7.6 g/dL (6.5-8.0)
--- NOTE | 2023-09-22 08:36 | ED_ITS ---
HPI - General Adult General Chief complaint: Abdominal Pain Stated complaint: Abd pain, blood in stool Time Seen by Provider: 09/22/23 08:35 Source: patient Mode of arrival: ambulatory Limitations: no limitations History of Present Illness HPI narrative: Patient is a 47 year old assigned male at with a history of alcohol abuse, substance abuse, cirrhosis, and GI bleeding presenting to the emergency department today with abdominal pain and black stools. Patient states that he woke up this morning with abdominal pain and black stools. Patient denies any dizziness, lightheadedness, nausea, vomiting, fever, chills, blurry vision, double vision, loss of vision, chest pain, difficulty breathing, shortness of breath, back pain, night sweats, pain with urination, increased urinary frequency, increased urinary urgency, blood in his urine, syncope or a near syncopal episode, recent trauma or falls, bowel incontinence, bladder incontinence, bowel retention, bladder retention, or any other complaints at this time. Onset (ago): hour(s) Location: abdomen Radiation: non-radiation Severity: mild Severity scale (1-10): 3 Quality: aching and dull Pain Consistency: constant Relieving factors: none Exacerbating factors: none Associated symptoms: denies other symptoms Treatments prior to arrival: none Related Data Home Medications Medication Instructions Recorded Confirmed methadone 10 mg/mL oral 125 mg PO DAILY 09/18/21 11/28/22 concentrate (Methadose) Allergies Allergy/AdvReac Type Severity Reaction Status Date / Time No Known Allergies Allergy Verified 11/28/22 07:39 [No Known Allergies*] Review of Systems 2 Constitutional: Constitutional: Reports no additional constitutional complaints, Denies chills, Denies fever(s) and Denies night sweats Eyes: Eyes: Reports no additional eye complaints, Denies blurry vision, Denies change in vision, Denies diplopia, Denies eye discharge, Denies loss of vision and Denies eye pain ENT: Denies dizziness Cardiovascular: Cardiovascular: Reports no additional cardiovascular complaints, Denies chest pain, Denies lightheadedness, Denies Loss of Consciousness and Denies dyspnea Respiratory: Respiratory: Reports no additional respiratory complaints and Denies dyspnea Gastrointestinal: Gastrointestinal: Reports no additional gastrointestinal complaints, Reports abdominal pain, Reports melena, Denies hematochezia, Denies change in bowel habits and Denies change in stool character Genitourinary: Genitourinary: Reports no additional male genitourinary complaints, Denies hematuria, Denies oliguria, Denies difficulty urinating, Denies dysuria, Denies urinary frequency, Denies urinary hesitancy, Denies urinary incontinence and Denies urinary urgency Musculoskeletal: Musculoskeletal: Reports no additional musculoskeletal complaints, Denies numbness and Denies tingling Neurologic: Denies dizziness, Denies loss of vision, Denies numbness and Denies tingling Psychiatric: Psychiatric: Reports no additional psychiatric complaints Endocrine: Endocrine: Reports no additional endocrine complaints Hematologic/Lymphatic: Hematologic/Lymphatic: Reports no additional hematologic/lymphatic complaints Allergic/Immunologic: Allergic/Immunologic: Reports no additional allergic/immunologic complaints [facility] Past Medical History Attestation statement: The following information was validated with the patient. Source: old records reviewed and nursing notes reviewed Onset Date is defined in the Problem List Problems that require an onset date and time if occurred within 24 hrs of arrival to the ED Aortic Dissection and Rupture; Neurologic impairment; Cardiopulmonary Arrest; Endotracheal Intubation; Insertion or Replacement of Mechanical Circulatory Assist Device Medical History Pain of right great toe COVID-19 Alcohol withdrawal Melena Rash Blocked ear Right upper quadrant pain Pre-op examination Liver cirrhosis Cirrhosis Alcoholism and drug addiction in family Alcoholism Major depression Surgical History Hx of esophagogastroduodenoscopy History of appendectomy Family History Family History Father No problems noted. Mother Chronic mental illness Family/Other Depression Substance abuse Other Mental health disorder Social History Social History Housing: House Alcohol intake: current Alcohol intake frequency: a few times a month Alcohol type: beer Patient Tobacco Use Status: Former Tobacco user Quit Date: 1 yr ago Cigarettes Per Day: 4 e-Cigarette/Vaping Use: Never Used Second Hand Smoke Exposure: No Use of substances other than those prescribed or required for medical reasons: Yes Substance Use Type: Marijuana Substance Use Type Other:: Methadone Are you DNR?: No Advance Directives: Yes Advance Directives on File: Yes Advance Directives Date on File: 01/03/21 service: No Current occupational status: unemployed Cognitive needs: No Hearing needs: No Vision needs: No Physical Exam ED Vital Signs: Vital Signs - 24 hr 09/22/23 07:54 09/22/23 09:01 09/22/23 10:00 Temperature 97.6 F 98.2 F Pulse Rate 104 H 91 76 Respiratory Rate 18 18 18 Blood Pressure 139/85 129/76 112/69 Pulse Oximetry 94 96 93 Oxygen Delivery Method Room Air Room Air Room Air 09/22/23 11:09 Temperature 98.2 F Pulse Rate 77 Respiratory Rate 16 Blood Pressure 103/64 Pulse Oximetry 99 Oxygen Delivery Method Room Air BMI result Body Mass Index 38.3 Const General: cooperative, no acute distress, alert and awake Nutritional Appearance: well nourished Orientation/consciousness: patient oriented x3 Limitations: no limitations HENMT Head: Yes normal to inspection and Yes atraumatic Ears: hearing grossly normal bilaterally and external ears normal General nose exam: Normal external nose present, no nasal discharge noted and no epistaxis Face and sinus: Yes normal facial exam, No abrasion and No laceration Mouth: Normal oral and palatal mucosa present, no drooling and no muffled voice Eyes General: appearance normal, both eyes and all related structures Periorbital: periorbital findings normal Eyelids: Yes eyelids normal Conjunctivae: conjunctivae normal Pupils: Equal, round and reactive pupils present EOM: EOMs intact bilaterally Neck Neck: Yes normal visual inspection, Yes full ROM and Yes no lymphadenopathy Chest Chest palpation & inspection: normal inspection of the chest Resp Effort & Inspection: normal respiratory effort and able to speak in complete sentences GI Inspection: Yes normal to inspection Palpation (GI): Soft to palpation, not firm, nontender and no guarding Neuro General: patient oriented x3 and moves all extremities Cranial nerves: Yes Equal, round and reactive pupils present Cognition (Neuro): normal cognition Motor exam (neuro): 5/5 motor strength present throughout Sensory Exam: Normal double simultaneous stimulation for sensation Coordination: [id number] test normal Extrem General: Yes normal to inspection, Yes full ROM and Yes capillary refill normal Psych Appearance: grossly normal Mental Status: mental status grossly normal Affect: normal affect Attitude: cooperative Thought process: Normal thought process present Thought content: Normal thought content present Insight: Good insight present (Psych) Medications Administered Generic Name Dose Route Start Last Admin Trade Name Freq PRN Reason Stop Dose Admin Lactated Ringer's 1,000 mls @ 80 mls/hr 09/22/23 11:15 09/22/23 11:17 Lr IVCONT 80 mls/hr .[id number] JULIA Administration Discontinued Medications Generic Name Dose Route Start Last Admin Trade Name Anil PRN Reason Stop Dose Admin Sodium Chloride 1,000 mls @ 999 mls/hr 09/22/23 09:00 09/22/23 10:17 Ns IV 09/22/23 10:00 Infused .[id number] JULIA Infusion Pantoprazole Sodium 40 mg 09/22/23 08:55 09/22/23 09:06 Pantoprazole Sodium 40 Mg/10 Ml Vial IVPUSH 09/22/23 08:56 40 mg ONCE ONE Administration Medical Decision Making Medical Decision Making [facility] Narrative: Patient is a 47 year old assigned male at with a history of alcohol abuse, substance abuse, cirrhosis, and GI bleeding presenting to the emergency department today with abdominal pain and black tarry stools. Patient's physical exam was unremarkable. Patient's blood work was unremarkable. Patient provided a stool sample that was consistent with black tarry stool. I spoke to his GI doctorGreg who recommended medical admission and scope. I spoke to the hospitalist team who agreed to admission. I explained my physical exam findings as well as all test results to the patient. I answered all questions asked by the patient. Patient verbalized agreement and understanding with this treatment plan and admission. Differential Diagnosis Differential Diagnoses: The differential diagnosis associated with the presentation includes Abdominal pain GI bleeding Bloody stools Admission/Observation Consideration of admission/observation: Escalation of care including admission/observation considered Patient admitted. Consult Healthcare Provider Management of the patient was discussed with: Hospitalist (agreed to admission.) and Director Presales (spoke with the GI doctor as noted in the MDM rationale portion of this note.) Lab Data [facility] Lab Attestation statement: I reviewed the patient's lab results. My interpretation of these results are in the MDM Rationale portion of this note. 09/22/23 08:06 09/22/23 08:06 Labs: Lab Results 09/22/23 09/22/23 09/22/23 Range/Units 08:06 08:52 08:53 WBC 6.4 (4.8-10.8) X10*3/uL RBC 4.77 (4.60-5.80) X10*6/uL Hgb 13.5 L (14.0-18.0) g/dl Hct 40.5 L (42.0-52.0) % MCV 84.9 (80.0-98.0) fL MCH 28.3 (27.0-33.0) pg MCHC 33.3 (31.0-36.0) g/dl RDW 15.3 (11.0-16.0) % Plt Count 64 L D (160-400) X10*3/uL MPV 11.3 (9.4-12.4) fL Immature Gran % (Auto) 0.3 (0.0-0.4) % Neut % (Auto) 76.2 H (45-73) % Lymph % (Auto) 15.2 L (20-40) % [place] % (Auto) 7.8 (2-11) % Eos % (Auto) 0.2 (0-4) % Baso % (Auto) 0.3 (0-2) % Lymph # (Auto) 1.0 L (1.2-4.9) X10*3/uL [place] # (Auto) 0.5 (0.1-1.2) X10*3/uL Eos # (Auto) 0.0 (0.0-0.4) X10*3/uL Baso # (Auto) 0.0 (0.0-0.2) X10*3/uL Abs Immat Gran (auto) 0.02 (0.00-0.03) X10*3/uL Absolute Neuts (auto) 4.9 (2.0-8.3) x10*3/uL Absolute Nucleated RBC 0.000 (0.0-0.012) X10*3/uL Nucleated RBC % (auto) 0.0 (0.0-0.2) /100WBC PT 15.0 H (11.1-13.3) SEC INR 1.2 H (0.9-1.1) APTT 31.9 (26.0-36.4) SEC Sodium 137 (135-145) mmol/L Potassium 3.3 (3.3-5.1) mmol/L Chloride 102 (96-108) mmol/L Carbon Dioxide 28 (22-29) mmol/L Anion Gap 10 L (12-20) BUN 12 (9-16) mg/dL Creatinine 0.79 (0.5-1.4) mg/dL Estim Creat Clear Calc 175.5 Estimated GFR > 60 Random Glucose 134 H (60-115) mg/dL Calcium 8.2 L (8.4-10.2) mg/dL Total Bilirubin 1.1 H (0.0-1.0) mg/dL Direct Bilirubin 0.5 (0.0-0.5) mg/dL AST 57 H (5-37) U/L ALT 39 (0-40) U/L Alkaline Phosphatase 75 (39-117) U/L Total Protein 7.6 (6.5-8.0) g/dL Albumin 3.5 (3.5-5.0) g/dL Lipase 18 (8-78) U/L Urine Color Yellow Urine Appearance Clear Urine pH 6.0 (5.0-9.0) Ur Specific [place] 1.020 (1.005-1.025) Urine Protein Negative (Neg-Trace) mg/dL Urine Glucose (UA) Negative (Negative) mg/dL Urine Ketones 15 (Negative) mg/dL Urine Blood Trace H (Negative) Urine Nitrite Negative (Negative) Ur Leukocyte Esterase Negative (Negative) Urine RBC 6-10 H (0-2) /HPF Urine WBC 0-5 (0-5) /HPF Ur Squamous Epith Cells 0-2 (0-2) /HPF Urine Bacteria None Seen (None Seen) Hyaline Casts 0-2 (0-2) /LPF Blood Type O Positive Antibody Screen NEGATIVE Critical Care Time Critical Care Time Critical Care Time: Yes Total Critical Care Time: 45 Attestation: I spent 45 minutes of Critical Care Time with this patient. This does not include time spent on separately reported billable procedures. Discharge Plan Discharge Clinical Impression: GI bleed, Abdominal pain Patient Disposition: Admitted As Inpatient
[2023-09-22] MEDS: 0.9 % Sodium Chloride 1,000 ML 999 ML IV (09:05)
[2023-09-22] MEDS: Pantoprazole Sodium 40 MG/10 ML VIAL IVPUSH (09:06)
[2023-09-22 09:21] LABS: INTERNATIONAL NORM RATIO 1.2 (0.9-1.1)
[2023-09-22 09:24] LABS: Partial Thromboplastin Time 31.9 SEC (26.0-36.4)
--- NOTE | 2023-09-22 10:22 | PHA.MEDREC ---
Pharmacy Consult ? Medication Reconciliation Pharmacy has completed the medication reconciliation. Spoke to pt to confirm meds. Pt states only takes methadone 125mg daily and gets at [facility].
--- NOTE | 2023-09-22 10:55 | MHC.SHP ---
Pre-Procedural Eval Section A Date of Service: 09/22/23 The patient is an INPATIENT: Yes Changes since office visit: No Cold of Flu in the past 2 weeks, No New Medical Problems, No Changes in Medication and No Patient answered all questions The History & Physical has been completed within 30 days and I have reviewed it.: Yes Section B Chief Complaint: Abd pain, blood in stool Allergies: Allergies Allergy/AdvReac Type Severity Reaction Status Date / Time No Known Allergies Allergy Verified 11/28/22 07:39 [No Known Allergies*] Plan I have reviewed the history and physical and performed a pertinent physical examination on my patient. No changes have occurred unless specified. Time Spent With Patient Time: Total time managing care of this patient today ____ minutes.
--- NOTE | 2023-09-22 10:57 | PM.EVENT ---
Event Note Date of Service: 09/22/23 Event Note: GI consult dictated EGD today for further evaluation of black stools and abd pain. Mr Sharpe is aware of risks and benefits and agrees to proceed. Time Spent With Patient Time: Total time managing care of this patient today ____ minutes.
--- NOTE | 2023-09-22 10:57 | PC.NURSE ---
Pt transferred to surgery at this tme
[2023-09-22] MEDS: Lactated Ringers 1,000 ML 80 ML IVCONT ×2 (11:17→17:42)
--- NOTE | 2023-09-22 11:40 | PM.IMHP ---
History of Present Illness Date of Service: 09/22/23 Attending physician on admission: Lana Penn Chief Complaint: black stool 47 year old male with history of alcoholic cirrhosis with chronic thrombocytopenia, opioid dependence on methadone with history of IVDA in remission, and MDD presented to the ED earlier today for evaluation of black stool that started this morning. He was seen in our ED last night for atypical chest pain associated with sob, confusion, ST, nausea, and diarrhea. Symptoms resolved with 2mg ativan, IV NS, toradol, and zofran and was discharged home. This morning work up with abdominal pain and black tarry stool and brought in a sample which appeared consistent with melena. He has been cutting back on etoh intake and states he is done with it . Last consumed 2 16z beers two nights ago. On arrival, slightly tachycardic to 104 which resolved. Vitals otherwise stable. No leukocytosis. Stable normocytic anemia with H/H 13.5/40.5% (slight increase from prior H/H 12.3/38.2%), PLT 64. PT 15.0, INR 1.2, PTT 31.9. Renal fx and lytes normal. Total bili 1.1, direct bili 0.5, Ast/ALT 57/39. UA unremarkable. Case discussed with GI who will perform EGD this morning. Pt will be admitted for further management of UGIB. He underwent EGD with Dr. Garza earlier today with findings of grade 1 non bleeding esophageal varices, 5mm clean based ulcer at egj, mild portal hypertensive gastropathy and gastritis with biopsies taken and erosive duodenitis. No evidence of active bleeding. Discussed with Dr. Garza. Pt seen and examined in PACU [facility] Medical History Pain of right great toe COVID-19 Alcohol withdrawal Melena Rash Blocked ear Right upper quadrant pain Pre-op examination Liver cirrhosis Cirrhosis Alcoholism and drug addiction in family Alcoholism Major depression Family History Father No problems noted. Mother Chronic mental illness Family/Other Depression Substance abuse Other Mental health disorder Surgical History Hx of esophagogastroduodenoscopy History of appendectomy Social History Housing: House Alcohol intake: current Alcohol intake frequency: a few times a month Alcohol type: beer Patient Tobacco Use Status: Former Tobacco user Quit Date: 1 yr ago Cigarettes Per Day: 4 e-Cigarette/Vaping Use: Never Used Second Hand Smoke Exposure: No Use of substances other than those prescribed or required for medical reasons: Yes Substance Use Type: Marijuana Substance Use Type Other:: Methadone Are you DNR?: No Advance Directives: Yes Advance Directives on File: Yes Advance Directives Date on File: 01/03/21 service: No Current occupational status: unemployed Cognitive needs: No Hearing needs: No Vision needs: No Meds Allergies Allergy/AdvReac Type Severity Reaction Status Date / Time No Known Allergies Allergy Verified 11/28/22 07:39 [No Known Allergies*] Active Medications: Current Medications Lactated Ringer's (Lr) 1,000 mls @ 80 mls/hr IVCONT .[id number] JULIA Last Admin: 09/22/23 11:17 Dose: 80 mls/hr Home Medications Medication Instructions Recorded Confirmed Last Taken Type methadone 10 mg/mL oral 125 mg PO DAILY 09/18/21 11/28/22 09/22/23 History concentrate (Methadose) Physical Exam Vital Signs and Narrative: Vital Signs: Last Vital Signs Temp 98.2 F 09/22/23 11:09 Pulse 77 09/22/23 11:09 Resp 16 09/22/23 11:09 BP 103/64 09/22/23 11:09 Pulse Ox 99 09/22/23 11:09 O2 Del Method Room Air 09/22/23 11:09 BMI result Body Mass Index 38.3 Results Labs 09/22/23 08:06 09/22/23 08:06 Labs: Laboratory Results - last 24 hr 09/22/23 09/22/23 09/22/23 08:06 08:52 08:53 MCV 84.9 MCH 28.3 MCHC 33.3 RDW 15.3 Plt Count 64 L D MPV 11.3 Immature Gran % (Auto) 0.3 Neut % (Auto) 76.2 H Lymph % (Auto) 15.2 L [place] % (Auto) 7.8 Eos % (Auto) 0.2 Baso % (Auto) 0.3 Lymph # (Auto) 1.0 L [place] # (Auto) 0.5 Eos # (Auto) 0.0 Baso # (Auto) 0.0 Abs Immat Gran (auto) 0.02 Absolute Neuts (auto) 4.9 Absolute Nucleated RBC 0.000 Nucleated RBC % (auto) 0.0 PT 15.0 H INR 1.2 H APTT 31.9 Anion Gap 10 L Estim Creat Clear Calc 175.5 Estimated GFR > 60 Random Glucose 134 H Calcium 8.2 L Total Bilirubin 1.1 H Direct Bilirubin 0.5 AST 57 H ALT 39 Alkaline Phosphatase 75 Total Protein 7.6 Albumin 3.5 Lipase 18 Urine Color Yellow Urine Appearance Clear Urine pH 6.0 Ur Specific [place] 1.020 Urine Protein Negative Urine Glucose (UA) Negative Urine Ketones 15 Urine Blood Trace H Urine Nitrite Negative Ur Leukocyte Esterase Negative Urine RBC 6-10 H Urine WBC 0-5 Ur Squamous Epith Cells 0-2 Urine Bacteria None Seen Hyaline Casts 0-2 Blood Type O Positive Antibody Screen NEGATIVE Assessment and Plan (1) GI bleed: Status: Acute Plan 47 year old male with history of alcoholic cirrhosis with chronic thrombocytopenia, opioid dependence on methadone with history of IVDA in remission, and MDD admitted for management of UGIB in pt with alcoholic cirrhosis. #Acute UGIB -EGD earliler today by Dr Garza showed; grade 1 non bleeding esophageal varices, 5mm clean based ulcer at egj, mild portal hypertensive gastropathy and gastritis with biopsies taken and erosive duodenitis. No evidence of active bleeding. -40mg IV PPI per GI -H/H stable, above transfusion threshold, follow h/h -etoh cessation strongly advised -advance diet per gi #ETOH cirrhosis -compensated -outpt follow up gi -etoh cessation #Alcohol use disorder -addiction med consult -last drink 2 days ago, no evidence of withdrawal #Opioid dependence -continue methadone #Chronic thrombocytopenia -due to above -follow plt #MDD -no acute decompensation DVT prophylaxis- SCPs Full code Pt requires inpt stay at least 2 midnights due to upper gi bleed in patient with hepatic cirrhosis requiring expert consultation and surgical proceed to uncover etiology of bleed Quality Stroke Does the patient have a stroke diagnosis?: No VTE Prior VTE?: No VTE Risk Level:: Medical - moderate - high VTE Device Contraindication: N/A - Device Ordered VTE Drug Contraindication: Treatment Not Indicated
--- NOTE | 2023-09-22 12:04 | P.CONAN_ITS ---
HPI - Anesthesia Eval Consult details Narrative: for EGD. Known h/o varices. PMFSH Active Problems Active Problems: All Active Problems (Updated 09/22/23 @ 11:05 by ERICK Morales) Abdominal pain (Acute) GI bleed (Acute) Substance use disorder (Acute) Tinea pedis (Acute) Atypical nevi (Acute) Cirrhosis (Acute) Gallbladder anomaly (Acute) Thrombocytopenia (Acute) Contusion of foot, left (Acute) Liver cirrhosis (Acute) Major depression (Acute) Alcoholism (Acute) Past Medical History Medical History Pain of right great toe COVID-19 Alcohol withdrawal Melena Rash Blocked ear Right upper quadrant pain Pre-op examination Liver cirrhosis Cirrhosis Alcoholism and drug addiction in family Alcoholism Major depression Family History Family History Father No problems noted. Mother Chronic mental illness Family/Other Depression Substance abuse Other Mental health disorder Family history of problems with anesthesia: No Surgical History Surgical History Hx of esophagogastroduodenoscopy History of appendectomy History of Problems with Anesthesia: No Social History Social History Housing: House Alcohol intake: current Alcohol intake frequency: a few times a month Alcohol type: beer Patient Tobacco Use Status: Former Tobacco user Quit Date: 1 yr ago Cigarettes Per Day: 4 e-Cigarette/Vaping Use: Never Used Second Hand Smoke Exposure: No Use of substances other than those prescribed or required for medical reasons: Yes Substance Use Type: Marijuana Substance Use Type Other:: Methadone Are you DNR?: No Advance Directives: Yes Advance Directives on File: Yes Advance Directives Date on File: 01/03/21 service: No Current occupational status: unemployed Cognitive needs: No Hearing needs: No Vision needs: No Meds Allergies Allergy/AdvReac Type Severity Reaction Status Date / Time No Known Allergies Allergy Verified 11/28/22 07:39 [No Known Allergies*] Active Medications: Current Medications Acetaminophen (Acetaminophen 325 Mg Tablet) 650 mg PO Q6H PRN PRN Reason: Pain, Mild (Pain Scale 1-3) Lactated Ringer's (Lr) 1,000 mls @ 80 mls/hr IVCONT .[id number] PENDING SALE TO [facility] Last Admin: 09/22/23 11:17 Dose: 80 mls/hr Ondansetron HCl (Ondansetron Hcl 4 Mg/2 Ml Vial) 4 mg IVPUSH Q8H PRN PRN Reason: Nausea and Vomiting Senna (Sennosides 8.6 Mg Tablet) 17.2 mg PO BEDTIME PRN PRN Reason: Constipation Sodium Chloride (0.9 % Sodium Chloride Flush 3 Ml Syringe) 3 ml IVFLUSH QSHIFT PENDING SALE TO [facility] Home Medications Medication Instructions Recorded Confirmed Last Taken Type methadone 10 mg/mL oral 125 mg PO DAILY 09/18/21 11/28/22 09/22/23 History concentrate (Methadose) Exam Height,Weight and Vital Signs: Height 6 ft 2 in Weight 135.171 kg Last Vital Signs Temp 98.2 F 09/22/23 11:09 Pulse 77 09/22/23 11:09 Resp 16 09/22/23 11:09 BP 103/64 09/22/23 11:09 Pulse Ox 99 09/22/23 11:09 O2 Del Method Room Air 09/22/23 11:09 Pertinent Lab Results Pertinent Lab Results: Laboratory Tests 09/22/23 09/22/23 09/22/23 08:06 08:52 08:53 WBC 6.4 RBC 4.77 Hgb 13.5 L Hct 40.5 L MCV 84.9 MCH 28.3 MCHC 33.3 RDW 15.3 Plt Count 64 L D MPV 11.3 Immature Gran % (Auto) 0.3 Neut % (Auto) 76.2 H Lymph % (Auto) 15.2 L [place] % (Auto) 7.8 Eos % (Auto) 0.2 Baso % (Auto) 0.3 Lymph # (Auto) 1.0 L [place] # (Auto) 0.5 Eos # (Auto) 0.0 Baso # (Auto) 0.0 Abs Immat Gran (auto) 0.02 Absolute Neuts (auto) 4.9 Absolute Nucleated RBC 0.000 Nucleated RBC % (auto) 0.0 PT 15.0 H INR 1.2 H APTT 31.9 Sodium 137 Potassium 3.3 Chloride 102 Carbon Dioxide 28 Anion Gap 10 L BUN 12 Creatinine 0.79 Estim Creat Clear Calc 175.5 Estimated GFR > 60 Random Glucose 134 H Calcium 8.2 L Total Bilirubin 1.1 H Direct Bilirubin 0.5 AST 57 H ALT 39 Alkaline Phosphatase 75 Total Protein 7.6 Albumin 3.5 Lipase 18 Urine Color Yellow Urine Appearance Clear Urine pH 6.0 Ur Specific [place] 1.020 Urine Protein Negative Urine Glucose (UA) Negative Urine Ketones 15 Urine Blood Trace H Urine Nitrite Negative Ur Leukocyte Esterase Negative Urine RBC 6-10 H Urine WBC 0-5 Ur Squamous Epith Cells 0-2 Urine Bacteria None Seen Hyaline Casts 0-2 Blood Type O Positive Antibody Screen NEGATIVE Airway Mallampati Class: II TM Dist: >3cm Neck ROM: Full Heart: ok Lungs: ok Assessment and Plan Assessment Anesthesia Assessment: Anesthesia Plan Discussed and Chart Reviewed Final Anesthetic Review Family History of Problems with Anesthesia: No History of Problems with Anesthesia: No NPO: Yes ASA Class: III Final Preanesthetic Review: No Changes in Pt Med Stat, Meds/Allgs Chart Reviewed, Consent Obtained/Reviewed and Anes Risks/Benef Reviewed Patient Risk: Intermediate Procedure Risk: Intermediate Anesthetic Plan Anesthetic Plan: Agree w/ Assess. and Plan and TIVA Disposition: Standard PACU
--- NOTE | 2023-09-22 13:23 | P.BOP_ITS ---
Brief Operative Note Date of Service: 09/22/23 Pre-op diagnosis: gi bleed Post-op diagnosis: same Procedure: egd Surgeon: Moreno Garza MD Anesthesia: MAC Was an Plating Machine Operator used for this Procedure?: No Estimated blood loss (mL): 5 Pathology: other Condition: stable Disposition: PACU
--- NOTE | 2023-09-22 13:25 | PM.EVENT ---
Event Note Date of Service: 09/22/23 Event Note: EGD grade 1 esophageal varices, nonbleeding 5mm clean based ulcer at egj mild portal hypertensive gastropathy and gastritis antral biopsy taken erosive duodenitis no bleeding rec advance diet ppi bid follow hct no alcohol Time Spent With Patient Time: Total time managing care of this patient today ____ minutes.
--- NOTE | 2023-09-22 13:50 | PC.NURSE ---
Pt to radiology for barium enema via stretcher
[2023-09-22] MEDS: Omeprazole 40 MG CAPSULE.DR PO (17:43)
--- NOTE | 2023-09-22 19:49 | OP_ITS ---
DATE OF SERVICE: 09/22/2023 SURGEON: Moreno Garza MD INDICATIONS: GI bleeding. PREOPERATIVE DIAGNOSIS: POSTOPERATIVE DIAGNOSIS: PROCEDURE PERFORMED: Upper endoscopy with biopsy. ESTIMATED BLOOD LOSS: COMPLICATIONS: ANESTHESIA: Monitored anesthesia care. ASSISTANTS: SPECIMENS: DESCRIPTION OF PROCEDURE: A history and physical was performed. The risks and benefits of the procedure were explained to the patient. Informed consent was obtained. The patient was placed in the left lateral decubitus position. The Olympus video gastroscope was introduced into the esophagus, stomach, and duodenum. Examination was performed. The scope was removed. He tolerated the procedure well and was taken to the recovery area in stable condition. FINDINGS: Esophagus: There was esophagitis at the EG junction with a 4 to 5 mm esophageal ulcer that was nonbleeding. There were 3 chains of grade 1 esophageal varices with no stigmata of recent hemorrhage extending from the EG junction at 42 cm to the mid esophagus at 30 cm. Stomach: The stomach showed mild portal hypertensive gastropathy involving the body. A single antral biopsy was obtained. Gastritis was present. No active bleeding was identified. Duodenum. There was erosive duodenitis involving the bulb and 2nd portion with no bleeding. IMPRESSION: 1. Esophageal varices, nonbleeding. 2. Esophagitis with a small esophageal ulcer. 3. Mild portal hypertensive gastropathy. 4. Gastritis. 5. Erosive duodenitis. RECOMMENDATION: 1. Follow up the biopsy results. 2. Advance diet. 3. Discharge in a.m. if stable. MD ELSI Napier/AMBERL / [id number]
--- NOTE | 2023-09-22 20:14 | CONS_ITS ---
DATE OF SERVICE: 09/22/2023 REFERRING PHYSICIAN: ERICK Morales REASON FOR CONSULTATION: GI bleeding. HISTORY OF PRESENT ILLNESS: The patient is a 47-year-old man who presented to the emergency room today after he developed epigastric discomfort this morning and passed black tarry stool. He does have a history of alcohol abuse and continues to drink alcohol up until 2 days before admission. He reports normal bowel movements up until this morning when he developed black tarry stool and epigastric discomfort. He had been seen recently in the emergency department and was given Toradol, but denies any chronic use of NSAIDs. Previous endoscopies have shown esophageal varices that have been nonbleeding and mild portal hypertensive gastropathy. In the emergency department, he was evaluated with laboratory studies, which showed a hematocrit of 40.5, which was stable from November of this year. He refused rectal examination, and vital signs were stable with the exception of a slight tachycardia, which resolved. PAST MEDICAL HISTORY: 1. Alcohol abuse. 2. Cirrhosis with thrombocytopenia. 3. Opioid dependence for which he takes methadone. 4. History of IV drug use. 5. Depression. 6. COVID-19 infection in the past. CURRENT MEDICATIONS: Current medication list is reviewed in the chart. He denies taking any medications besides methadone recently. ALLERGIES: THERE ARE NONE REPORTED. FAMILY HISTORY: This is reviewed with the patient and is positive for substance abuse. SOCIAL HISTORY: There is no current tobacco use. Alcohol use is as above. REVIEW OF SYSTEMS: SKIN: No pruritus. HEENT: Negative. CARDIOPULMONARY: No shortness of breath or chest pain. GASTROINTESTINAL: As above. GENITOURINARY: Negative. NEUROPSYCHIATRIC: Negative. PHYSICAL EXAMINATION: GENERAL: Shows a pleasant male, sitting comfortably in bed. VITAL SIGNS: Stable. SKIN: Anicteric. HEENT: Shows no scleral icterus. NECK: Without lymphadenopathy or thyromegaly. LUNGS: Clear. HEART: Shows a regular rate and rhythm. S1, S2. No murmur. ABDOMEN: Obese, soft, and nontender. Bowel sounds are present. No organomegaly is noted. EXTREMITIES: Without edema. LABORATORY DATA: Old records are reviewed. IMPRESSION: Gastrointestinal bleeding. His presentation appears consistent with an upper gastrointestinal bleed. Possible causes for this include varices, portal hypertensive gastropathy, peptic ulcer disease, gastritis, and NSAID-induced ulceration. Esophageal varices seem less likely based on the lack of hematemesis and his stable hematocrit. I have recommended he undergo upper endoscopy. I have discussed risks and benefits of the procedure with him. This will be arranged urgently for today. He will be admitted to the hospital and monitored. Thanks for asking me to see him. I will follow him in the hospital with you. MD ELSI Napier/SIMONE / [id number]
[2023-09-23] MEDS: Calcium Carbonate 750 MG TAB.CHEW PO ×3 (03:04→21:38)
[2023-09-23] MEDS: Lactated Ringers 1,000 ML 80 ML IVCONT (03:04)
[2023-09-23 04:00] VITALS: BP 120/71; PULSE 80; RESP 16; TEMP 36; O2SAT 95
[2023-09-23] MEDS: Omeprazole 40 MG CAPSULE.DR PO ×2 (05:51→15:57)
[2023-09-23 06:00] LABS: MANUAL DIFF FLAG NO
[2023-09-23 06:11] LABS: Basophils Percent Auto 0.2 % (0-2); Eosinophils Percent Auto 0.5 % (0-4); Hematocrit 38.2 % (42.0-52.0); Hemoglobin 12.3 g/dl (14.0-18.0); Imm Gran Abs Auto 0.01 X10*3/uL (0.00-0.03); Imm Gran Pct Auto 0.2 % (0.0-0.4); Lymphocytes Absolute Auto 1.3 X10*3/uL (1.2-4.9); Lymphocytes Percent Auto 32.3 % (20-40); Mean Corpuscular HGB Conc 32.2 g/dl (31.0-36.0); Mean Corpuscular Hemoglobin 28.1 pg (27.0-33.0); Mean Corpuscular Volume 87.2 fL (80.0-98.0); Mean Platelet Volume 10.7 fL (9.4-12.4); Monocytes Absolute Auto 0.3 X10*3/uL (0.1-1.2); Monocytes Percent Auto 7.5 % (2-11); Neutrophils Absolute Auto 2.4 x10*3/uL (2.0-8.3); Neutrophils Percent Auto 59.3 % (45-73); Red Blood Count 4.38 X10*6/uL (4.60-5.80); Red Cell Distribution Width 15.8 % (11.0-16.0); White Blood Count 4.1 X10*3/uL (4.8-10.8)
[2023-09-23 06:12] LABS: Platelet Count 63 X10*3/uL (160-400)
[2023-09-23 06:31] LABS: Anion Gap 10 (12-20); Blood Urea Nitrogen 9 mg/dL (9-16); Calcium 7.9 mg/dL (8.4-10.2); Carbon Dioxide 28 mmol/L (22-29); Chloride 104 mmol/L (96-108); Creatinine Clr Calc Pharmacy 170.5; Estimated Glomerular Filt Rate > 60; Glucose Random 93 mg/dL (60-115); Potassium 3.9 mmol/L (3.3-5.1); Sodium 138 mmol/L (135-145)
[2023-09-23 07:25] VITALS: BP 128/80; PULSE 79; RESP 18; TEMP 36.1; O2SAT 94
[2023-09-23] MEDS: 0.9 % Sodium Chloride Flush 3 ML SYRINGE IVFLUSH ×2 (07:47→15:57)
--- NOTE | 2023-09-23 08:58 | HE.PHANOTE ---
METHADONE CONFIRMATION FORM PATIENT TAKES 125 MG FROM [facility]. LAST DOSE 09/22
--- NOTE | 2023-09-23 09:03 | HO.POSTANES ---
Post Anesthesia Evaluation Post Anesthesia Evaluation Date of Service: 09/23/23 Vital Signs: Vital Signs Temp Pulse Resp BP Pulse Ox O2 Del Method 09/23/23 07:25 96.9 F 79 18 128/80 94 Room Air 09/23/23 04:00 96.8 F 80 16 120/71 95 Room Air 09/22/23 23:32 98.2 F 84 16 124/66 97 Room Air Anesthesia: Monitored Mental Status: Awake Pain Control: Satisfactory Nausea/Vomiting: None Hydration: Adequate Anesthesia-Related Issues: No Anes. Related Issues
--- NOTE | 2023-09-23 09:48 | MHC.CM.PN ---
Male 47 DX UGIB He lives with his father and his S.O. He is independent with all functional mobility. The Recovery nurse has met with the patient. She has provided community resource information to the patient. A HCP has been documented and scanned into the EMR. DP home self care. Community resource info from the Recovery team. Patient will arrange for a family member to provide transportation home.
--- NOTE | 2023-09-23 09:58 | MHC.RECOVRN ---
Met with pt in 385 after consult placed to Addiction Medicine for alcohol use. Pt had presented to the ED with abdominal pain and hx cirrhosis. Upon evaluation, pt admitted for GI bleed. Pt sitting in bed, awake, alert easily engages in conversation. Pt reports alcohol use, approx 4 24 ounce beer/twisted tea/four lokos at least 3 times a week. Pt reports when he doesn't use alcohol he feels awful. Pt currently diaphoretic, anxious, restless, feeling mild alcohol withdrawal. Pt reports hx opioid use, last use over one year ago. Pt reports he has been doing well with methadone, denies cravings. Is currently on 125 mg daily through [facility], has been on methadone x 6-7 years. Pt is very familiar with different LOC for XIN, has been to ATS, [facility], [facility], sober living. Most recently, pt was at [facility] for ATS about one month ago. Prior to that, pt had been at [facility] approx 8 months ago. Pt not currently working, lives with father and father's girlfriend. Discussed recovery support options, including inpatient, outpatient, [facility]AC[facility]N. Pt reports hx [place] in the past, did not find it helpful. Pt reports he has a friend who he sees daily who attends meetings, plans to go with friend once dc from the hospital. Pt has had a middle school coach in the past, is interested in reconnecting with a head coach. Pt provided with written resources as well as t/w contact information if needed. Denies questions or concerns at this time. Spoke with pts RN regarding mild alcohol withdrawal symptoms. other sports coach or instructor referral placed.
--- NOTE | 2023-09-23 10:52 | HO.PM.IMPN ---
Subjective Subjective Date of Service: 09/23/23 Interval History: Being followed for upper GI bleed, this morning patient appears anxious, restless, complaining of dyspepsia is on methadone 125 mg daily denies nausea vomiting had 1 dark colored bowel movement last night, report drinking 3 times per week last drink 2 days ago, denies shortness of breath, no chest pain, no palpitations. Review of Systems All other system reviewed and negative Physical Exam Vital Signs: Vital Signs: Last Vital Signs Temp 96.9 F 09/23/23 07:25 Pulse 79 09/23/23 07:25 Resp 18 09/23/23 07:25 BP 128/80 09/23/23 07:25 Pulse Ox 94 09/23/23 07:25 O2 Del Method Room Air 09/23/23 07:25 BMI result Body Mass Index 38.3 Const: Other: General awake alert x3, anxious, restless, in no acute distress. Anicteric sclera Neck no JVD. CVS regular rate rhythm, Respiratory lungs clear to auscultation, no respiratory distress, no wheeze, no rhonchi. Gastrointestinal abdomen soft, non tender, bowel sounds audible, no guarding , no rigidity. Extremities no edema. Neuro non focal Skin no rash Psych anxious Objective Data Active Medications Acetaminophen (Acetaminophen 325 Mg Tablet) 650 mg PO Q6H PRN PRN Reason: Pain, Mild (Pain Scale 1-3) Calcium Carbonate (Calcium Carbonate 750 Mg Tab.Chew) 750 mg PO Q6H PRN PRN Reason: Dyspepsia Last Admin: 09/23/23 07:45 Dose: 750 mg Documented By: DANAY Fentanyl (Fentanyl Citrate/Pf 100 Mcg/2 Ml Vial) 50 mcg IVPUSH Q5M PRN; Protocol PRN Reason: Pain, Severe (Pain Scale 7-10) Lorazepam (Lorazepam 0.5 Mg Tablet) 0.5 mg PO Q8H PRN PRN Reason: anxiety/restlessness Methadone HCl (Methadone Hcl 20 Mg/2 Ml Oral.Conc) 125 mg PO DAILY [facility] Omeprazole (Omeprazole 40 Mg Capsule.Dr) 40 mg PO BID@0630,1630 [facility] Ondansetron HCl (Ondansetron Hcl 4 Mg/2 Ml Vial) 4 mg IVPUSH Q8H PRN PRN Reason: Nausea and Vomiting Ondansetron HCl (Ondansetron Hcl 4 Mg/2 Ml Vial) 4 mg IVPUSH ONCE PRN PRN Reason: Nausea and Vomiting Senna (Sennosides 8.6 Mg Tablet) 17.2 mg PO BEDTIME PRN PRN Reason: Constipation Sodium Chloride (0.9 % Sodium Chloride Flush 3 Ml Syringe) 3 ml IVFLUSH QSHIFT [facility] Last Admin: 09/23/23 07:47 Dose: 3 ml Documented By: DANAY Labs 09/23/23 05:39 09/23/23 05:39 Labs: Laboratory Results - last 24 hr 09/23/23 05:39 MCV 87.2 MCH 28.1 MCHC 32.2 RDW 15.8 Plt Count 63 L MPV 10.7 Immature Gran % (Auto) 0.2 Neut % (Auto) 59.3 Lymph % (Auto) 32.3 Phelps % (Auto) 7.5 Eos % (Auto) 0.5 Baso % (Auto) 0.2 Lymph # (Auto) 1.3 Phelps # (Auto) 0.3 Eos # (Auto) 0.0 Baso # (Auto) 0.0 Abs Immat Gran (auto) 0.01 Absolute Neuts (auto) 2.4 Absolute Nucleated RBC 0.000 Nucleated RBC % (auto) 0.0 Anion Gap 10 L Estim Creat Clear Calc 170.5 Estimated GFR > 60 Random Glucose 93 Calcium 7.9 L Assessment and Plan (1) Abdominal pain: Status: Acute (2) GI bleed: Status: Acute (3) Substance use disorder: Status: Acute Plan 47 year old male with history of alcoholic cirrhosis with chronic thrombocytopenia, opioid dependence on methadone with history of IVDA in remission, and MDD admitted for management of UGIB in pt. with alcoholic cirrhosis. #Acute UGIB tolerating diet mild dyspepsia, 1 episode of dark colored stool last night EGD by Dr Garza 09/22 showed; grade 1 non bleeding esophageal varices, 5mm clean based ulcer at egj, mild portal hypertensive gastropathy and gastritis with biopsies taken and erosive duodenitis. No evidence of active bleeding. Will place on by mouth PPI, continue regular diet, as needed Tums H/H stable, above transfusion threshold, follow h/h Strongly recommend to abstain from alcohol #ETOH cirrhosis -compensated, outpt follow up gi #Alcohol use disorder/mild etoh withdrawal -noted to be anxious, restless, in mild alcohol withdrawal likely minimizing ETOH use , seen by Addiction Team written resources provided, and motor coach tour operator referral placed Will place on CIWA protocol/Ativan, Hold phenobarb protocol. #Ch. Opioid dependence -will order home dose of methadone 125 mg daily #Chronic thrombocytopenia -due to cirrhosis, stable platelet count #MDD -no acute decompensation DVT prophylaxis- SCPs Full code Pt requires continued inpatient stay due to upper gi bleed in patient with hepatic cirrhosis requiring close hematocrit monitoring and also alcohol withdrawal on CIWA protocol Quality Stroke Does the patient have a stroke diagnosis?: No VTE Prior VTE?: No VTE Risk Level:: Medical - moderate - high VTE Device Contraindication: N/A - Device Ordered VTE Drug Contraindication: Treatment Not Indicated
[2023-09-23] MEDS: methADONE HCl 20 MG/2 ML ORAL.CONC 125 MG PO (11:02)
[2023-09-23] MEDS: LORazepam 0.5 MG TABLET PO (11:08)
[2023-09-23 15:28] VITALS: BP 133/75; PULSE 75; RESP 18; TEMP 36.1; O2SAT 94
--- NOTE | 2023-09-23 15:54 | PC.NURSE ---
OK to administer Ativan now per Dr. Penn
[2023-09-23] MEDS: LORazepam 1 MG TABLET PO (15:57)
[2023-09-23] MEDS: hydrOXYzine HCL 25 MG TABLET PO (18:01)
[2023-09-23 23:40] VITALS: BP 138/83; PULSE 79; RESP 16; TEMP 36.4; O2SAT 97
[2023-09-24] MEDS: LORazepam 1 MG TABLET PO ×2 (00:17→08:31)
[2023-09-24] MEDS: 0.9 % Sodium Chloride Flush 3 ML SYRINGE IVFLUSH ×4 (00:17→21:34)
[2023-09-24] MEDS: hydrOXYzine HCL 25 MG TABLET PO ×2 (01:32→10:45)
[2023-09-24 04:00] VITALS: BP 123/82; PULSE 82; RESP 16; TEMP 36.2; O2SAT 97
[2023-09-24] MEDS: Omeprazole 40 MG CAPSULE.DR PO ×2 (05:46→15:37)
[2023-09-24 06:41] LABS: Hematocrit 38.5 % (42.0-52.0); Hemoglobin 12.7 g/dl (14.0-18.0); Mean Corpuscular Hemoglobin 28.5 pg (27.0-33.0); Mean Corpuscular Volume 86.3 fL (80.0-98.0); Mean Platelet Volume 11.4 fL (9.4-12.4); Platelet Count 85 X10*3/uL (160-400); Red Blood Count 4.46 X10*6/uL (4.60-5.80); Red Cell Distribution Width 15.7 % (11.0-16.0); White Blood Count 4.1 X10*3/uL (4.8-10.8)
[2023-09-24 07:30] VITALS: BP 140/82; PULSE 88; RESP 16; TEMP 36.7; O2SAT 93
[2023-09-24] MEDS: methADONE HCl 20 MG/2 ML ORAL.CONC 125 MG PO (08:31)
--- NOTE | 2023-09-24 10:23 | MHC.RECOVRN ---
Met with pt in 384 to follow up after provider notified t/w pt might be interested in CSS placement and continues to experience withdrawal symptoms. Pt sitting in bed, awake, alert, engages in conversation. Appears uncomfortable, diaphoretic. Pt reports alcohol withdrawal symptoms including upset stomach, sweating, mild agitation, anxiety, and headache. Pt discloses inaccurately reporting alcohol amount yesterday, reports drinking 6 24-32 ounce high alcohol content drinks daily. Pt reports Ativan helps withdrawal a little , however, is still feeling symptomatic. Discussed CSS level of care, pt declines at this time. Pt feels comfortable with previous plan of polo coach and meetings upon dc from [facility]. Pt does report increased depression and is agreeable to providers recommendation of CARE Team consult. Pt denies other questions or concerns at this time. Notified provider of withdrawal symptoms. Discussed with Poonam Mckee APRN.
--- NOTE | 2023-09-24 11:08 | P.PNGI_ITS ---
Subjective Subjective Date of Service: 09/24/23 Critical Care Time (minutes): 0 Comment: tolerating diet Physical Exam 2 Vital Signs: Vital Signs: Last Vital Signs Temp 98.1 F 09/24/23 07:30 Pulse 88 09/24/23 07:30 Resp 16 09/24/23 07:30 BP 140/82 H 09/24/23 07:30 Pulse Ox 93 09/24/23 07:30 O2 Del Method Room Air 09/24/23 07:30 BMI result Body Mass Index 38.3 GI: Other: abdomen is soft and nontender Objective Data Labs 09/24/23 05:46 09/23/23 05:39 Labs: Laboratory Results - last 24 hr 09/24/23 05:46 WBC 4.1 L RBC 4.46 L Hgb 12.7 L Hct 38.5 L MCV 86.3 MCH 28.5 MCHC 33.0 RDW 15.7 Plt Count 85 L D MPV 11.4 Absolute Nucleated RBC 0.000 Nucleated RBC % (auto) 0.0 Procedures Date of Service Date of Service: 09/24/23 Progress Note: A&P Assessment and plan (1) GI bleed: Status: Acute Assessment and Plan: no active bleeding continue ppi I advised Jose to avoid alcohol Time Spent With Patient Time: Total time managing care of this patient today ____ minutes. Quality Stroke Does the patient have a stroke diagnosis?: No VTE Prior VTE?: No VTE Risk Level:: Medical - moderate - high VTE Device Contraindication: N/A - Device Ordered VTE Drug Contraindication: Treatment Not Indicated
--- NOTE | 2023-09-24 11:14 | P.PNIM_ITS ---
Subjective Subjective Date of Service: 09/24/23 Interval History: Complaining of anxiety, shakiness, sweaty, feels depressed, admits to drinking 32 oz x 6 bottles daily, was minimizing alcohol intake, denies nausea, vomiting tolerating diet, no headache no dizziness. Had dark colored stool no melena. Review of Systems All other system reviewed and negative. Physical Exam 2 Vital Signs: Vital Signs: Last Vital Signs Temp 98.1 F 09/24/23 07:30 Pulse 88 09/24/23 07:30 Resp 16 09/24/23 07:30 BP 140/82 H 09/24/23 07:30 Pulse Ox 93 09/24/23 07:30 O2 Del Method Room Air 09/24/23 07:30 BMI result Body Mass Index 38.3 Const: Other: General awake alert x3, anxious, restless, in no acute distress. Anicteric sclera Neck no JVD. CVS regular rate rhythm, Respiratory lungs clear to auscultation, no respiratory distress, no wheeze, no rhonchi. Gastrointestinal abdomen soft, non tender, bowel sounds audible, no guarding , no rigidity. Extremities no edema. Neuro nonfocal Skin no rash Psych anxious Objective Data Active Medications Acetaminophen (Acetaminophen 325 Mg Tablet) 650 mg PO Q6H PRN PRN Reason: Pain, Mild (Pain Scale 1-3) Calcium Carbonate (Calcium Carbonate 750 Mg Tab.Chew) 750 mg PO Q6H PRN PRN Reason: Dyspepsia Last Admin: 09/23/23 21:38 Dose: 750 mg Documented By: NEHAL Fentanyl (Fentanyl Citrate/Pf 100 Mcg/2 Ml Vial) 50 mcg IVPUSH Q5M PRN; Protocol PRN Reason: Pain, Severe (Pain Scale 7-10) Hydroxyzine HCl (Hydroxyzine Hcl 25 Mg Tablet) 25 mg PO Q6H PRN PRN Reason: anxiety/restlessness Last Admin: 09/24/23 10:45 Dose: 25 mg Documented By: DANAY Lorazepam (Lorazepam 1 Mg Tablet) 1 mg PO Q8H PRN PRN Reason: anxiety/restlessness Last Admin: 09/24/23 08:31 Dose: 1 mg Documented By: DANAY Methadone HCl (Methadone Hcl 20 Mg/2 Ml Oral.Conc) 125 mg PO DAILY [facility] Last Admin: 09/24/23 08:31 Dose: 125 mg Documented By: DANAY Omeprazole (Omeprazole 40 Mg Bo.) 40 mg PO BID@0630,1630 [facility] Last Admin: 09/24/23 05:46 Dose: 40 mg Documented By: NII Ondansetron HCl (Ondansetron Hcl 4 Mg/2 Ml Vial) 4 mg IVPUSH Q8H PRN PRN Reason: Nausea and Vomiting Ondansetron HCl (Ondansetron Hcl 4 Mg/2 Ml Vial) 4 mg IVPUSH ONCE PRN PRN Reason: Nausea and Vomiting Senna (Sennosides 8.6 Mg Tablet) 17.2 mg PO BEDTIME PRN PRN Reason: Constipation Sodium Chloride (0.9 % Sodium Chloride Flush 3 Ml Syringe) 3 ml IVFLUSH QSHIFT [facility] Last Admin: 09/24/23 08:33 Dose: 3 ml Documented By: DANAY Labs 09/24/23 05:46 09/23/23 05:39 Labs: Laboratory Results - last 24 hr 09/24/23 05:46 MCV 86.3 MCH 28.5 MCHC 33.0 RDW 15.7 Plt Count 85 L D MPV 11.4 Absolute Nucleated RBC 0.000 Nucleated RBC % (auto) 0.0 Assessment and Plan (1) Abdominal pain: Status: Acute (2) GI bleed: Status: Acute (3) Substance use disorder: Status: Acute Plan 47 year old male with history of alcoholic cirrhosis with chronic thrombocytopenia, opioid dependence on methadone with history of IVDA in remission, and MDD admitted for management of UGIB in pt. with alcoholic cirrhosis. #Acute UGIB tolerating diet , no nausea no vomiting had dark black stool to EGD by Dr Garza 09/22 showed; grade 1 non bleeding esophageal varices, 5mm clean based ulcer at egj, mild portal hypertensive gastropathy and gastritis with biopsies taken and erosive duodenitis. No evidence of active bleeding. on by mouth PPI, continue regular diet, as needed Tums H/H stable, above transfusion threshold, follow h/h Strongly recommend to abstain from alcohol #ETOH cirrhosis -compensated, outpt follow up gi #Alcohol use disorder/etoh withdrawal -noted to be anxious, restless, diaphoretic Was minimizing alcohol intake, drinks 6x [address] bottles daily [address] place on phenobarb protocol, DC Ativan seen by Addiction Team written resources provided, and monomer recovery supervisor referral placed #Ch. Opioid dependence -continue methadone 125 mg daily #Chronic thrombocytopenia -due to cirrhosis, stable platelet count, no bleeding #MDD -no acute decompensation, not on medication, outpatient psych follow-up DVT prophylaxis- SCPs Full code Pt requires continued inpatient stay due to upper gi bleed in patient with hepatic cirrhosis requiring close hematocrit monitoring and also alcohol withdrawal on phenobarb protocol Quality Stroke Does the patient have a stroke diagnosis?: No VTE Prior VTE?: No VTE Risk Level:: Medical - moderate - high VTE Device Contraindication: N/A - Device Ordered VTE Drug Contraindication: Treatment Not Indicated
[2023-09-24 12:00] VITALS: O2SAT 92
--- NOTE | 2023-09-24 12:36 | P.CDIM_ITS ---
PROVIDER RESPONSE TEXT: To clarify, the appropriate diagnosis supported by the clinical indicators: Obesity Due to excess calories QUERY TEXT: PHYSICIAN'S DOCUMENTATION REQUEST Date of Query: 09/24/2023 11:31 AM EST Patient Name: Jose Sharpe Admit Date: 09/22/2023 Dear Lana Penn, A review of the medical record indicates additional documentation may be needed. Please review below and update the documentation accordingly. Clinical Indicators: BMI: 38.3kg 135.171kg 6ft 2in If possible, please provide an associated diagnosis related to the BMI: Overweight Obesity Due to excess calories Obesity Drug induced Obesity Due to other cause Specify the other cause Other (explain) Clinically unable to determine (explain) Thank you, Lainey Markham, CCS, CDIS Use of terms such as suspected, likely, concern for, or probable (associated with a specific diagnosi s that is being evaluated, monitored, or treated as if it exists) are acceptable and can be coded in the inpatient se tting, when documented at the time of discharge. Please use your independent medical judgment in providing your response. THIS QUERY IS PART OF THE PERMANENT MEDICAL RECORD
--- NOTE | 2023-09-24 12:48 | MHC.CM.PN ---
Patient has been seen by the recovery Nurse again today. DP home with resource information provided by the recovery nurse. Patient has arranged for transportation home.
[2023-09-24 16:00] VITALS: BP 133/85; PULSE 87; RESP 18; TEMP 36.4; O2SAT 93
[2023-09-24 19:28] VITALS: BP 136/76; PULSE 97; RESP 14; TEMP 36.5; O2SAT 93
[2023-09-24] MEDS: PHENobarbitaL 30 MG TABLET 60 MG PO (21:33)
[2023-09-25] MEDS: hydrOXYzine HCL 25 MG TABLET PO ×2 (03:03→11:13)
[2023-09-25 03:23] VITALS: BP 129/74; PULSE 84; RESP 14; TEMP 36.8; O2SAT 94
[2023-09-25] MEDS: Omeprazole 40 MG CAPSULE.DR PO ×2 (05:33→15:55)
[2023-09-25 07:44] VITALS: BP 134/70; PULSE 79; RESP 18; TEMP 36.9; O2SAT 97
--- NOTE | 2023-09-25 08:29 | HO.SUDE ---
Patient seen by CARE team. Patient denies SI/ HI. Patient endorses sx of depression and hx of CCS/ respite admission to [facility] in [facility]. He is receptive and agreeable to utilizing [facility] in [place], including their [facility] for urgent outpatient and CSS/ respite as needed. He is additionally given the local behavioral health pamphlet, which has contacts for all area outpatient programs/ detox/ rehab/ and other social service supports. He agrees to follow up himself upon discharge.
--- NOTE | 2023-09-25 10:22 | MHC.CM.PN ---
Per MD rounds no discharge today. The patient has s+s of WD. He will be treated for ETOH WD. DP home with community resource info provided by the Recovery nurse. He will arrange for a family member to provide transportation home.
[2023-09-25] MEDS: methADONE HCl 20 MG/2 ML ORAL.CONC 125 MG PO (10:35)
[2023-09-25] MEDS: PHENobarbitaL 30 MG TABLET 60 MG PO ×2 (10:35→19:57)
[2023-09-25] MEDS: 0.9 % Sodium Chloride Flush 3 ML SYRINGE IVFLUSH ×2 (10:36→15:55)
--- NOTE | 2023-09-25 10:45 | HO.PM.IMPN ---
Subjective Subjective Date of Service: 09/25/23 Interval History: Complaining of persistent alcohol withdrawal symptoms with shakiness, diaphoresis, headache and anxiety, receiving phenobarb protocol, tolerating diet denies abdominal pain, no fevers, no chills, had a mixed brown/black colored stool this morning. Review of Systems All other system reviewed and negative. Physical Exam Vital Signs: Vital Signs: Last Vital Signs Temp 98.5 F 09/25/23 07:44 Pulse 79 09/25/23 07:44 Resp 18 09/25/23 07:44 BP 134/70 09/25/23 07:44 Pulse Ox 97 09/25/23 07:44 O2 Del Method Room Air 09/25/23 07:44 BMI result Body Mass Index 38.3 Const: Other: General awake alert x3, anxious, restless, in no acute distress. Anicteric sclera Neck no JVD. CVS regular rate rhythm, Respiratory lungs clear to auscultation, no respiratory distress, no wheeze, no rhonchi. Gastrointestinal abdomen soft, non tender, bowel sounds audible, no guarding , no rigidity. Extremities no edema. Neuro nonfocal Skin no rash Psych anxious Objective Data Active Medications Acetaminophen (Acetaminophen 325 Mg Tablet) 650 mg PO Q6H PRN PRN Reason: Pain, Mild (Pain Scale 1-3) Calcium Carbonate (Calcium Carbonate 750 Mg Tab.Chew) 750 mg PO Q6H PRN PRN Reason: Dyspepsia Last Admin: 09/23/23 21:38 Dose: 750 mg Documented By: NEHAL Fentanyl (Fentanyl Citrate/Pf 100 Mcg/2 Ml Vial) 50 mcg IVPUSH Q5M PRN; Protocol PRN Reason: Pain, Severe (Pain Scale 7-10) Hydroxyzine HCl (Hydroxyzine Hcl 25 Mg Tablet) 25 mg PO Q6H PRN PRN Reason: anxiety/restlessness Last Admin: 09/25/23 03:03 Dose: 25 mg Documented By: ALLISON Methadone HCl (Methadone Hcl 20 Mg/2 Ml Oral.Conc) 125 mg PO DAILY [facility] Last Admin: 09/25/23 10:35 Dose: 125 mg Documented By: REYNA Omeprazole (Omeprazole 40 Mg Capsule.Dr) 40 mg PO BID@0630,1630 [facility] Last Admin: 09/25/23 05:33 Dose: 40 mg Documented By: ALLISON Ondansetron HCl (Ondansetron Hcl 4 Mg/2 Ml Vial) 4 mg IVPUSH Q8H PRN PRN Reason: Nausea and Vomiting Ondansetron HCl (Ondansetron Hcl 4 Mg/2 Ml Vial) 4 mg IVPUSH ONCE PRN PRN Reason: Nausea and Vomiting Pharmacy Consult (Consult Rx Etoh Phenob Po Only) 1 each MISCELLANE ONCE PRN; Protocol PRN Reason: Consult order Phenobarbital (Phenobarbital 30 Mg Tablet) 60 mg PO BID [facility]; Protocol Stop: 09/26/23 09:01 Last Admin: 09/25/23 10:35 Dose: 60 mg Documented By: REYNA Phenobarbital (Phenobarbital 30 Mg Tablet) 30 mg PO BID [facility]; Protocol Stop: 09/28/23 09:01 Phenobarbital (Phenobarbital 30 Mg Tablet) 30 mg PO Q24H [facility]; Protocol Stop: 09/29/23 21:01 Senna (Sennosides 8.6 Mg Tablet) 17.2 mg PO BEDTIME PRN PRN Reason: Constipation Sodium Chloride (0.9 % Sodium Chloride Flush 3 Ml Syringe) [facility] Last Admin: 09/25/23 10:36 Dose: 3 ml Documented By: REYNA Labs 09/24/23 05:46 09/23/23 05:39 Assessment and Plan (1) Abdominal pain: Status: Acute (2) GI bleed: Status: Acute (3) Substance use disorder: Status: Acute Plan 47 year old male with history of alcoholic cirrhosis with chronic thrombocytopenia, opioid dependence on methadone with history of IVDA in remission, and MDD admitted for management of UGIB in pt. with alcoholic cirrhosis. #Acute UGIB tolerating diet , no nausea no vomiting had dark black/brown mixed stool EGD by Dr Garza 09/22 showed; grade 1 non bleeding esophageal varices, 5mm clean based ulcer at egj, mild portal hypertensive gastropathy and gastritis with biopsies taken and erosive duodenitis. No evidence of active bleeding. on by mouth PPI, continue regular diet, as needed Tums H/H stable, above transfusion threshold, follow h/h Strongly recommend to abstain from alcohol #ETOH cirrhosis -compensated, outpt follow up gi #Alcohol use disorder/etoh withdrawal -noted to be anxious, restless, diaphoretic Was minimizing alcohol intake, drinks 6x 32 oz bottles daily ,on phenobarb protocol, continue as needed hydroxyzine seen by Addiction Team written resources provided, and soccer coach referral placed. #Ch. Opioid dependence -continue methadone 125 mg daily #Chronic thrombocytopenia -due to cirrhosis, stable platelet count, no bleeding #MDD -not on medication, consulted care team, outpatient referrals given . DVT prophylaxis- SCPs Full code Pt requires continued inpatient stay due to upper gi bleed in patient with hepatic cirrhosis requiring close hematocrit monitoring and also alcohol withdrawal on phenobarb protocol Quality Stroke Does the patient have a stroke diagnosis?: No VTE Prior VTE?: No VTE Risk Level:: Medical - moderate - high VTE Device Contraindication: N/A - Device Ordered VTE Drug Contraindication: Treatment Not Indicated
[2023-09-25 12:00] VITALS: O2SAT 96
[2023-09-25 15:14] VITALS: BP 142/92; PULSE 100; RESP 18; TEMP 37.1; O2SAT 95
--- NOTE | 2023-09-25 15:52 | PC.NURSE ---
patient refuses alarms and camera in his room,encouraged pt to ask for assistance
[2023-09-25] MEDS: ondansetron HCL 4 MG/2 ML VIAL IVPUSH (15:54)
[2023-09-25] MEDS: PHENobarbitaL sodium 130 MG/ML VIAL IM (16:02)
--- NOTE | 2023-09-25 17:12 | PC.NURSE ---
Patient refuses sequentials,risks explained ,encouraged activity
[2023-09-25 19:14] VITALS: BP 141/66; PULSE 94; RESP 18; TEMP 36; O2SAT 93
[2023-09-25 19:45] VITALS: BP 148/72; PULSE 97; RESP 18; TEMP 36.6; O2SAT 95
[2023-09-26] MEDS: 0.9 % Sodium Chloride Flush 3 ML SYRINGE IVFLUSH ×4 (00:03→20:23)
[2023-09-26 03:44] VITALS: BP 125/78; PULSE 58; RESP 18; TEMP 36.2; O2SAT 98
[2023-09-26] MEDS: Omeprazole 40 MG CAPSULE.DR PO ×2 (06:34→16:04)
[2023-09-26 07:39] VITALS: BP 140/86; PULSE 93; RESP 18; TEMP 36.1; O2SAT 97
[2023-09-26] MEDS: methADONE HCl 20 MG/2 ML ORAL.CONC 125 MG PO (09:20)
[2023-09-26] MEDS: PHENobarbitaL 30 MG TABLET 60 MG PO (09:20)
--- NOTE | 2023-09-26 10:42 | HO.PM.IMPN ---
Subjective Subjective Date of Service: 09/26/23 Interval History: Follow up gi bleed and ETOH feeling better, mild withdrawal symptoms no bleeding Review of Systems All other system reviewed and negative. Physical Exam Vital Signs: Vital Signs: Last Vital Signs Temp 96.9 F 09/26/23 07:39 Pulse 93 09/26/23 07:39 Resp 18 09/26/23 07:39 BP 140/86 H 09/26/23 07:39 Pulse Ox 97 09/26/23 07:39 O2 Del Method Room Air 09/26/23 07:39 BMI result Body Mass Index 38.3 Appearing in no acute distress lung sounds are clear to auscultation heart regular rate rhythm, clear S1, S2 positive bowel sounds, abdomen is soft, nontender neuro patient is alert x3, no focal deficits Objective Data Active Medications Acetaminophen (Acetaminophen 325 Mg Tablet) 650 mg PO Q6H PRN PRN Reason: Pain, Mild (Pain Scale 1-3) Calcium Carbonate (Calcium Carbonate 750 Mg Tab.Chew) 750 mg PO Q6H PRN PRN Reason: Dyspepsia Last Admin: 09/23/23 21:38 Dose: 750 mg Documented By: NEHAL Fentanyl (Fentanyl Citrate/Pf 100 Mcg/2 Ml Vial) 50 mcg IVPUSH Q5M PRN; Protocol PRN Reason: Pain, Severe (Pain Scale 7-10) Hydroxyzine HCl (Hydroxyzine Hcl 25 Mg Tablet) 25 mg PO Q6H PRN PRN Reason: anxiety/restlessness Last Admin: 09/25/23 11:13 Dose: 25 mg Documented By: REYNA Methadone HCl (Methadone Hcl 20 Mg/2 Ml Oral.Conc) 125 mg PO DAILY [facility] Last Admin: 09/26/23 09:20 Dose: 125 mg Documented By: LINDA Omeprazole (Omeprazole 40 Mg Capsule.Dr) 40 mg PO BID@0630,1630 [facility] Last Admin: 09/26/23 06:34 Dose: 40 mg Documented By: CLAYTON Ondansetron HCl (Ondansetron Hcl 4 Mg/2 Ml Vial) 4 mg IVPUSH Q8H PRN PRN Reason: Nausea and Vomiting Last Admin: 09/25/23 15:54 Dose: 4 mg Documented By: NEHAL Ondansetron HCl (Ondansetron Hcl 4 Mg/2 Ml Vial) 4 mg IVPUSH ONCE PRN PRN Reason: Nausea and Vomiting Pharmacy Consult (Consult Rx Etoh Phenob Po Only) 1 each MISCELLANE ONCE PRN; Protocol PRN Reason: Consult order Phenobarbital (Phenobarbital 30 Mg Tablet) 30 mg PO BID [facility]; Protocol Stop: 09/28/23 09:01 Phenobarbital (Phenobarbital 30 Mg Tablet) 30 mg PO Q24H [facility]; Protocol Stop: 09/29/23 21:01 Senna (Sennosides 8.6 Mg Tablet) 17.2 mg PO BEDTIME PRN PRN Reason: Constipation Sodium Chloride (0.9 % Sodium Chloride Flush 3 Ml Syringe) 3 ml IVFLUSH QSHIFT [facility] Last Admin: 09/26/23 09:21 Dose: 3 ml Documented By: LINDA Labs 09/24/23 05:46 09/23/23 05:39 Assessment and Plan (1) Abdominal pain: Status: Acute (2) GI bleed: Status: Acute (3) Substance use disorder: Status: Acute Plan 47 year old male with history of alcoholic cirrhosis with chronic thrombocytopenia, opioid dependence on methadone with history of IVDA in remission, and MDD admitted for management of UGIB in pt. with alcoholic cirrhosis. Acute UGIB EGD by Dr Garza 09/22 showed; grade 1 non bleeding esophageal varices, 5mm clean based ulcer at egj, mild portal hypertensive gastropathy and gastritis with biopsies taken and erosive duodenitis. No evidence of active bleeding. PPI continue regular diet tolerating diet no nausea or vomiting H/H stable, above transfusion threshold, follow h/h ETOH cirrhosis compensated o/p follow up with GI Alcohol use disorder/etoh withdrawal Was minimizing alcohol intake, drinks 6x 32 oz bottles daily ,on phenobarb protocol, continue as needed hydroxyzine seen by Addiction Team written resources provided, and tissue recovery technician referral placed. Opioid dependence continue methadone 125 mg daily Chronic thrombocytopenia due to cirrhosis, stable platelet count, no bleeding DVT prophylaxis- SCPs Attending Dr. Chou Full code Pt requires continued inpatient stay due to upper gi bleed in patient with hepatic cirrhosis requiring close hematocrit monitoring and also alcohol withdrawal on phenobarb protocol Quality Stroke Does the patient have a stroke diagnosis?: No VTE Prior VTE?: No VTE Risk Level:: Medical - moderate - high VTE Device Contraindication: N/A - Device Ordered VTE Drug Contraindication: Treatment Not Indicated
[2023-09-26 12:00] VITALS: O2SAT 95
[2023-09-26 15:34] VITALS: BP 134/79; PULSE 90; RESP 18; TEMP 36.4; O2SAT 95
[2023-09-26] MEDS: hydrOXYzine HCL 25 MG TABLET PO (16:08)
[2023-09-26 19:40] VITALS: BP 127/82; PULSE 98; RESP 18; TEMP 36.1; O2SAT 97
[2023-09-26] MEDS: Melatonin 3 MG TABLET 6 MG PO (20:19)
[2023-09-26] MEDS: PHENobarbitaL 30 MG TABLET PO (20:20)
[2023-09-27 00:14] VITALS: BP 115/68; PULSE 86; RESP 18; TEMP 36.5; O2SAT 93
[2023-09-27] MEDS: Omeprazole 40 MG CAPSULE.DR PO (06:27)
--- NOTE | 2023-09-27 07:16 | PM.DS ---
DS: Providers Provider Date of Service: 09/27/23 Date of admission: 09/22/23 11:38 Primary care physician: Juan Miguel Asif MD Consults: 09/22/23 09:14 Consult to Gastroenterology Stat Consulting Provider: Moreno Garza Reason for consultation: black tarry stools Has provider been notified: Yes 09/22/23 14:50 Addiction Medicine Routine Consulting Provider: Addiction Covering Reason for consultation: etoh dependence 09/25/23 07:22 Consult to Care Team Routine Comment: Reason for consultation: depression/anxiety /etoh DS: Diagnosis Discharge Diagnosis (1) Abdominal pain: Status: Acute (2) GI bleed: Status: Acute (3) Substance use disorder: Status: Acute DS: Summary Hospital Course Hospital Course: History and physical as per admitting provider. 47 year old male with history of alcoholic cirrhosis with chronic thrombocytopenia, opioid dependence on methadone with history of IVDA in remission, and MDD presented to the ED earlier today for evaluation of black stool that started this morning. He was seen in our ED last night for atypical chest pain associated with sob, confusion, ST, nausea, and diarrhea. Symptoms resolved with 2mg ativan, IV NS, toradol, and zofran and was discharged home. This morning work up with abdominal pain and black tarry stool and brought in a sample which appeared consistent with melena. He has been cutting back on etoh intake and states he is done with it . Last consumed 2 16z beers two nights ago. On arrival, slightly tachycardic to 104 which resolved. Vitals otherwise stable. No leukocytosis. Stable normocytic anemia with H/H 13.5/40.5% (slight increase from prior H/H 12.3/38.2%), PLT 64. PT 15.0, INR 1.2, PTT 31.9. Renal fx and lytes normal. Total bili 1.1, direct bili 0.5, Ast/ALT 57/39. UA unremarkable. Case discussed with GI who will perform EGD this morning. Pt will be admitted for further management of UGIB. He underwent EGD with Dr. Garza earlier today with findings of grade 1 non bleeding esophageal varices, 5mm clean based ulcer at egj, mild portal hypertensive gastropathy and gastritis with biopsies taken and erosive duodenitis. No evidence of active bleeding. Discussed with Dr. Garza. Pt seen and examined in PACU 47-year-old man treated for upper GI bleed. Status post endoscopy 116 showing nonbleeding esophageal varices, ulcer, mild portal hypertensive gastropathy, gastritis and erosive duodenitis. Biopsies taken, no active bleeding noted. Patient treated with PPI, transition to regular diet without any issues. Hemoglobin hematocrit remained above transfusion threshold during hospitalization. He was also treated for alcohol use withdrawal with phenobarbital protocol, withdrawal symptoms resolved. Seen by addiction medicine team an outpatient resources were discussed. He was continued on his methadone for history of opiate dependence without any issues. Plan is for patient to be discharged home and can follow up with primary care provider or planishing press operator if any further bleeding episodes are noted. He was encouraged to stop drinking alcohol. Time Attestation Discharge coordination time: Greater than 30 minutes Quality: Safe Use of Opioids Does Pt have an Active Cancer Diagnosis on the Problem List?: No Quality: Stroke Does the patient have a stroke diagnosis?: No Physical Exam Vital Signs: Vital Signs: Last Vital Signs Temp 97.7 F 09/27/23 00:14 Pulse 86 09/27/23 00:14 Resp 18 09/27/23 00:14 BP 115/68 09/27/23 00:14 Pulse Ox 93 09/27/23 00:14 O2 Del Method Room Air 09/27/23 00:14 BMI result Body Mass Index 38.3 Appearing in no acute distress head is normocephalic atraumatic eyes pupils are PERRLA sclera is anicteric mouth throat mucous membranes are intact and moist neck is supple no lymphadenopathy, no JVD noted lung sounds are clear to auscultation heart regular rate rhythm, clear S1, S2 positive bowel sounds, abdomen is soft, nontender neuro patient is alert x3, no focal deficits DS: Data Data Completed and Pending Completed studies during hospitalization [Text1]: Pending at discharge 09/22/23 13:24 Surgical [PTH] Routine Procedures Detoxification Services for Substance Abuse Treatment (09/18/21) Excision of Stomach, Pylorus, Via Natural or Artificial Opening Endoscopic, Diagnostic (09/18/21) Discharge Plan Discharge Anticipated Discharge Date/Time: 09/27/23 07:14 Patient Disposition: Home, Self-Care Discharge Diagnosis: GI bleed Referrals: Juan Miguel Asif MD [Primary Care Provider] - 1 Week Discharge Medications: Continued methadone [Methadose] 10 mg/mL Concentrate 125 mg PO DAILY Rx Instructions: [facility] Discharge Orders: Discharge Order (Routine); Ordered 09/27/23 Ordered By: Argelia Montemayor Diet: Advance to usual diet Activity on Discharge: As tolerated Stand Alone Forms: Patient Portal Discharge page Care Plan Goals: Seek outpatient resources for help with substance abuse and alcohol Health Concerns: GI bleed Alcohol withdrawal Plan of Treatment: Follow-up with primary care provider as needed Follow-up with planishing press operator if further bleeding episodes noted Take all medications as prescribed Assessment: Discharge summary
[2023-09-27 07:26] VITALS: BP 146/90; PULSE 90; RESP 18; TEMP 36.1; O2SAT 94
[2023-09-27] MEDS: PHENobarbitaL 30 MG TABLET PO (07:33)
[2023-09-27] MEDS: methADONE HCl 20 MG/2 ML ORAL.CONC 125 MG PO (07:34)
--- NOTE | 2023-09-27 09:28 | MHC.CM.PN ---
EMR reviewed. Patient is medically cleared for dc home self care, has own ride. Patient has resources provided from [facility] and does not have any questions . Will f/u outpatient.
== END 2023-09-27 10:16 | disposition home or self-care (01) | DRG 241 ==
LOC: HO.ED 11:05 → HO.EDOVER 12:01 → HO.S3 16:10
PROVIDERS: Hospitalist; Internal Medicine Gastroenterology; Physician Assistant Medical; Admitting Provider Physician Assistant; Emergency Provider Emergency Medicine; PCP Internal Medicine; Visit Provider Nurse Practitioner Acute Care
PROC: 0DB78ZX Excision of Stomach, Pylorus, Via Natural or Artificial Opening Endoscopic, Diagnostic (ICD-10-PCS; principal; 2023-09-22 13:30)
DX: K29.71 Gastritis, unspecified, with bleeding (principal); I85.11 Secondary esophageal varices with bleeding; K22.11 Ulcer of esophagus with bleeding; K76.6 Portal hypertension; F11.20 Opioid dependence, uncomplicated; K26.4 Chronic or unspecified duodenal ulcer with hemorrhage; F10.930 Alcohol use, unspecified with withdrawal, uncomplicated; D69.59 Other secondary thrombocytopenia; E66.09 Other obesity due to excess calories; Z68.38 Body mass index [BMI] 38.0-38.9, adult; K70.30 Alcoholic cirrhosis of liver without ascites; F32.9 Major depressive disorder, single episode, unspecified; K31.89 Other diseases of stomach and duodenum; Z87.891 Personal history of nicotine dependence
CPT/HCPCS: 36415; 73070; 80048; 80076; 81001; 83690; 85025; 85027; 85610; 85730; 86850; 86900; 86901; 88305; 88342; 99284; C9113; J0171; J1596; J2405; J2560; J2704; J7120; S9485

== ENCOUNTER → 2023-09-22 11:38 | Outpatient (BNV) | payer OTHER, SELFPAY | PROVIDERS: Admitting Provider Physician Assistant; Emergency Provider Emergency Medicine; PCP Internal Medicine; Visit Provider Physician Assistant | DX: R10.9 Unspecified abdominal pain (principal); K92.2 Gastrointestinal hemorrhage, unspecified; F19.90 Other psychoactive substance use, unspecified, uncomplicated | CPT/HCPCS: 99223; 99232; 99233; 99239 ==

== ENCOUNTER 2023-12-29 13:08 | Outpatient (AMB) | payer OTHER, SELFPAY ==
--- NOTE | 2023-12-29 13:14 | A.OFFPC_ITS ---
Vital Signs 12/29/23 13:16 Height 6 ft 1 in Weight 310 lb 2 oz BMI 40.9 BP 122/74 Blood Pressure Location Lt brachial Position Sitting Pulse 92 Pulse Source Pulse Oximeter Pulse Oximetry (%) 93 Oxygen Delivery Method Room Air Intake Visit Reasons: pain and swelling in both legs Intake Note: Patient is here today for weight gain and pain with swelling in both legs on going for a month. Etcher Hand Required: No Stringed Instrument Tuner: Not Required per policy Accompanied by: Self / Same As Patient Allergies No Known Allergies [No Known Allergies*] Allergy (Verified 12/29/23 13:48) Medication List - Last Reconciled 12/29/23 by Juan Miguel Asif MD doxepin 50 mg PO BEDTIME furosemide (Lasix) 20 mg PO DAILY gabapentin 300 mg PO TID methadone (Methadose) 125 mg PO DAILY pantoprazole 40 mg PO DAILY Tobacco use date assessed: 12/29/23 Dental Screening Dental Screen Date: 12/29/23 Did you have a dental visit in the last 12 months?: No Did you have a dental problem in the last 6 months where you did not have access to dental care?: No Was dental information given to patient?: No HPI pain and swelling in both legs HPI Details 48-year-old male presents to the office to discuss his chronic medical conditions. Patient reports that he has gained weight again. He is using compression stockings to reduce the edema in the legs. He has stayed away from alcohol for the past 2 months. He is in a program for the same. Unfortunately he is provided with greasy food and food with high salt content at this facility. Patient is seeing a psychiatrist for his mental health condition and is on gabapentin 300 mg thrice daily and doxepin 50 mg daily. [facility]LY [facility] Medical History Substance use disorder Pain of right great toe COVID-19 Alcohol withdrawal Melena Rash Blocked ear Right upper quadrant pain Pre-op examination Liver cirrhosis Cirrhosis Alcoholism and drug addiction in family Alcoholism Major depression Surgical History Hx of esophagogastroduodenoscopy History of appendectomy Family History Father No problems noted. Mother Chronic mental illness Family/Other Depression Substance abuse Other Mental health disorder Social History Household Members: Family Housing: Condominium Do you presently have visiting nurse or other home services: No Alcohol intake: current Alcohol intake frequency: does not drink Alcohol type: beer Comment: pt refuses alarm Patient Tobacco Use Status: Former Tobacco user Quit Date: 1 yr ago Cigarettes Per Day: 4 e-Cigarette/Vaping Use: Never Used Second Hand Smoke Exposure: No Substance Use Type: Marijuana Advance Directives Date on File: 01/03/21 service: No Current occupational status: unemployed Cognitive needs: No Hearing needs: No Vision needs: No Questionnaire PHQ-9 Over the last 2 weeks, how often have you been bothered by any of the following problems? 1. Little interest or pleasure in doing things: not at all 2. Feeling down, depressed, or hopeless: not at all 3. Trouble falling or staying asleep, or sleeping too much: not at all 4. Feeling tired or having little energy: not at all 5. Poor appetite or overeating: not at all 6. Feeling bad about yourself - or that you are a failure or have let yourself or your family down: not at all 7. Trouble concentrating on things, such as reading the newspaper or watching television: not at all 8. Moving or speaking so slowly that other people could have noticed. Or the opposite - being so fidgety or restless that you have been moving around a lot more than usual: not at all 9. Thoughts that you would be better off or of hurting yourself in some way: not at all Total score: 0 Depression Screening Interpretation: Negative Depression Screening Done: Yes Source: Developed by Drs. Jj Grossman, Marlin Matos, Oli Snyder and colleagues, with an educational zhao from [employer]. Thrive Questionnaire Date Thrive assessed: 12/29/23 I am a: Patient What is your living situation today?: I have a steady place to live Within the past 12 months, did the food you bought not last and you didn't have the money to get more?: Never true Within the past 12 months, did you worry whether your food would run out before you got money to buy more?: Never true Do you have trouble paying for medicines?: No Do you have trouble getting transportation to medical appointments?: No Do you have trouble paying your heating and electricity bill?: No Do you have trouble taking care of your child, family member or friend?: No Do you have trouble with day-to-day activities such as bathing, preparing meals, shopping, managing finances, etc.?: No Are you currently unemployed and looking for a job?: No Are you interested in more education?: No Currently or been in a relationship where the following occur: no concerns reported THRIVE Score: 0 AUDIT C Alcohol Use Questionnaire (AUDIT-C) 1. How often do you have a drink containing alcohol?: Never Total Score: 0 KUSH-7 AMB Questionnaire KUSH-7 Date KUSH - 7 assessed: 12/29/23 Feeling nervous, anxious, or on edge: 3 = Nearly every day Not being able to stop or control worryin = Nearly every day Worrying too much about different things: 3 = Nearly every day Trouble relaxin = Nearly every day Being so restless that it is hard to sit still: 3 = Nearly every day Becoming easily annoyed or irritable: 3 = Nearly every day Feeling afraid as if something awful might happen: 1 = Several days Total KUSH-7 score (0-4 normal; 5-9 mild; 10-14 moderate; 15-21 severe): 19 Source: Developed by Drs. Jj Grossman, Marlin Matos, Oli Snyder and colleagues, with an educational zhao from [employer]. Physical exam (Primary Care) Vital Signs: Last Vital Signs Pulse 92 12/29/23 13:16 BP 122/74 12/29/23 13:16 Pulse Ox 93 12/29/23 13:16 Oxygen Delivery Method Room Air 12/29/23 13:16 BMI result Body Mass Index 40.9 BMI Assessment/Plan discussion: High (1 lb per week weight loss suggested.) BMI High, discussed plan: lifestyle, weight reduction and dietary Tobacco/Smoking Status: Tobacco use Status Tobacco use date assessed 12/29/23 12/29/23 13:23 Patient Tobacco Use Status Former Tobacco user 12/29/23 13:23 e-Cigarette/Vaping Use Never Used 12/29/23 13:23 PHQ-9: PHQ-9 Score PHQ-9: Total score 0 12/29/23 13:23 Depression Screening Interpretation: Negative Thrive Assessment: Date of Thrive Assessment Date Thrive assessed 12/29/23 12/29/23 13:23 Currently or been in a relationship where the following occur: no concerns re ported Const General: cooperative and healthy appearing Nutritional Appearance: well nourished Orientation/consciousness: patient oriented x3 Limitations: no limitations HENMT Head: Yes normal to inspection Eyes General: appearance normal, both eyes and all related structures Neck Neck: Yes normal visual inspection Chest Chest palpation & inspection: normal palpation of entire chest wall Resp Effort & Inspection: normal respiratory effort Neuro General: patient oriented x3 Extrem Other: Lower extremity: Pitting edema. Tender to touch. Assessment and Plan Assessment & Plan (1) Major depression: Comment: Code(s): F32.9 - Major depressive disorder, single episode, unspecified Qualifiers: Major depression recurrence: recurrent Active/Remission status: in partial remission Qualified Code(s): F33.41 - Major depressive disorder, recurrent, in partial remission Plan: Patient is no longer on citalopram. He sees a psychiatrist were started him on gabapentin and doxepin. (2) Alcoholism: Comment: Patient has been encouraged to abstain. He feels strong about it and has no intention to restart drinking. Code(s): F10.20 - Alcohol dependence, uncomplicated Plan: As above. (3) Cirrhosis: Code(s): K74.60 - Unspecified cirrhosis of liver Plan: The swelling in the leg is a reflexion of the cirrhosis. Lasix 20 mg once a day to help reduce the swelling has been offered. (4) Thrombocytopenia: Code(s): D69.6 - Thrombocytopenia, unspecified Plan: Blood work will be drawn again and this condition monitored. Orders: Orders Basic Metabolic Panel Today D69.6 - Thrombocytopenia, unspecified, F10.20 - Alcohol dependence, uncomplicated, F33.41 - Major depressive disorder, recurrent, in partial remission, K74.60 - Unspecified cirrhosis of liver Erythrocyte Sedimentation Rate Today D69.6 - Thrombocytopenia, unspecified, F10.20 - Alcohol dependence, uncomplicated, F33.41 - Major depressive disorder, recurrent, in partial remission, K74.60 - Unspecified cirrhosis of liver Liver Panel Today D69.6 - Thrombocytopenia, unspecified, F10.20 - Alcohol dependence, uncomplicated, F33.41 - Major depressive disorder, recurrent, in partial remission, K74.60 - Unspecified cirrhosis of liver Complete Blood Count no Diff Today D69.6 - Thrombocytopenia, unspecified, F10.20 - Alcohol dependence, uncomplicated, F33.41 - Major depressive disorder, recurrent, in partial remission, K74.60 - Unspecified cirrhosis of liver Lipid Panel Today D69.6 - Thrombocytopenia, unspecified, F10.20 - Alcohol dependence, uncomplicated, F33.41 - Major depressive disorder, recurrent, in p artial remission, K74.60 - Unspecified cirrhosis of liver Thyroid Stimulating Hormone Today D69.6 - Thrombocytopenia, unspecified, F10.20 - Alcohol dependence, uncomplicated, F33.41 - Major depressive disorder, recurrent, in partial remission, K74.60 - Unspecified cirrhosis of liver Medications: New furosemide (Lasix) 20 mg PO DAILY 90 tabs 0RF pantoprazole 40 mg PO DAILY 90 tabs 1RF Coding Level of Care Code Est Pt Level 4 (32530) Diagnoses Recurrent major depressive disorder, in partial remission F33.41 Major depression recurrence: recurrent Active/Remission status: in partial remission Alcoholism F10.20 Cirrhosis K74.60 Thrombocytopenia D69.6
[2023-12-29 13:16] VITALS: BP 122/74; PULSE 92; O2SAT 93; BMI 40.9
== END 2023-12-29 13:42 | disposition home or self-care (01) ==
PROVIDERS: PCP Internal Medicine; Visit Provider Internal Medicine
DX: F33.41 Major depressive disorder, recurrent, in partial remission (principal); F10.20 Alcohol dependence, uncomplicated; K74.60 Unspecified cirrhosis of liver; D69.6 Thrombocytopenia, unspecified
CPT/HCPCS: 99214

== ENCOUNTER 2024-05-25 08:42 | Outpatient (REF) | payer OTHER, SELFPAY ==
[2024-05-25 09:35] LABS: Hematocrit 43.3 % (42.0-52.0); Mean Corpuscular HGB Conc 32.3 g/dl (31.0-36.0); Mean Corpuscular Volume 83.4 fL (80.0-98.0); Mean Platelet Volume 11.6 fL (9.4-12.4); Red Blood Count 5.19 X10*6/uL (4.60-5.80); Red Cell Distribution Width 14.3 % (11.0-16.0); White Blood Count 4.4 X10*3/uL (4.8-10.8)
[2024-05-25 09:37] LABS: Platelet Count 97 X10*3/uL (160-400)
[2024-05-25 10:12] LABS: Erythrocyte Sedimentation Rate 10 MM/HR (0-15)
[2024-05-25 10:17] LABS: Alanine Aminotransferase 23 U/L (0-40); Albumin Level 3.8 g/dL (3.5-5.0); Alkaline Phosphatase 72 U/L (39-117); Anion Gap 9 (12-20); Aspartate Amino Transferase 37 U/L (5-37); Bilirubin Direct 0.3 mg/dL (0.0-0.5); Bilirubin Total 0.6 mg/dL (0.0-1.0); Blood Urea Nitrogen 6 mg/dL (9-16); Calcium 8.7 mg/dL (8.4-10.2); Carbon Dioxide 33 mmol/L (22-29); Chloride 103 mmol/L (96-108); Cholesterol 127 mg/dL (<200); Estimated Glomerular Filt Rate > 60; Glucose Random 111 mg/dL (60-115); HDL Cholesterol 46 mg/dL (>40); LDL Cholesterol Calculated 71 mg/dL (<100); Potassium 3.8 mmol/L (3.3-5.1); Sodium 141 mmol/L (135-145); Total Protein 8.1 g/dL (6.5-8.0); Triglycerides 52 mg/dL (<150)
[2024-05-25 10:41] LABS: Thyroid Stimulating Hormone 2.82 uIU/mL (0.32-4.0)
== END 2024-05-25 08:43 | disposition home or self-care (01) ==
LOC: HO.LAB 08:42
PROVIDERS: PCP Internal Medicine; Visit Provider Internal Medicine
DX: K74.60 Unspecified cirrhosis of liver (principal); D69.6 Thrombocytopenia, unspecified; F33.41 Major depressive disorder, recurrent, in partial remission; F10.20 Alcohol dependence, uncomplicated
CPT/HCPCS: 36415; 80048; 80061; 80076; 84443; 85027; 85652

== ENCOUNTER 2024-08-03 09:03 | Outpatient (AMB) | payer OTHER, SELFPAY ==
--- NOTE | 2024-08-03 09:14 | A.OFFPC_ITS ---
Vital Signs 08/03/24 09:15 Height 6 ft 1 in Weight 302 lb BMI 39.8 BP 100/70 Blood Pressure Location Lt brachial Position Sitting Pulse 75 Pulse Source Pulse Oximeter Pulse Oximetry (%) 93 Oxygen Delivery Method Room Air Intake Visit Reasons: Rsched from 05/30 -3M Follow up Intake Note: Patient is here to follow up on Cirrhosis, Alcoholism. Pt decline flu shot today. Critical Care Educator Required: No Auto Vinyl Top Installer: Not Required per policy Accompanied by: Self / Same As Patient Allergies No Known Allergies [No Known Allergies*] Allergy (Verified 08/03/24 09:15) Tobacco use date assessed: 08/03/24 Dental Screening Dental Screen Date: 12/29/23 [facility] Medical History Substance use disorder Pain of right great toe COVID-19 Alcohol withdrawal Melena Rash Blocked ear Right upper quadrant pain Pre-op examination Liver cirrhosis Cirrhosis Alcoholism and drug addiction in family Alcoholism Major depression Surgical History Hx of esophagogastroduodenoscopy History of appendectomy Family History Father No problems noted. Mother Chronic mental illness Family/Other Depression Substance abuse Other Mental health disorder Social History [facility]: [facility] Do you presently have visiting nurse or other home services: No Alcohol intake: current Alcohol intake frequency: does not drink Alcohol type: beer Comment: pt refuses alarm Patient Tobacco Use Status: Former Tobacco user Cigarettes Per Day: 4 e-Cigarette/Vaping Use: Never Used Second Hand Smoke Exposure: No Substance Use Type: Marijuana Advance Directives Date on File: 01/03/21 service: No Current occupational status: unemployed Cognitive needs: No Hearing needs: No Vision needs: No Questionnaire Thrive Questionnaire Date Thrive assessed: 12/29/23 KUSH-7 AMB Questionnaire KUSH-7 Date KUSH - 7 assessed: 12/29/23 Source: Developed by Drs. Jj Grossman, Marlin Matos, Oli Snyder and colleagues, with an educational zhao from [employer]. Physical exam (Primary Care) Vital Signs: Last Vital Signs Pulse 75 08/03/24 09:15 BP 100/70 08/03/24 09:15 Pulse Ox 93 08/03/24 09:15 Oxygen Delivery Method Room Air 08/03/24 09:15 BMI result Body Mass Index 39.8 Tobacco/Smoking Status: Tobacco use Status Tobacco use date assessed 08/03/24 08/03/24 09:19 Patient Tobacco Use Status Former Tobacco user 08/03/24 09:19 e-Cigarette/Vaping Use Never Used 08/03/24 09:19 Thrive Assessment: Date of Thrive Assessment Date Thrive assessed 12/29/23 08/03/24 09:19 Results AMB Urinalysis Dipstick UR Leukocytes Negative Last Edit by FAB Sprague on 08/03/24 09:36 UR Nitrite Negative Last Edit by FAB Sprague on 08/03/24 09:36 UR Urobilinogen Normal Last Edit by FAB Sprague on 08/03/24 09:36 UR Protein Negative Last Edit by FAB Sprague on 08/03/24 09:36 UR Ph 5.0 Last Edit by FAB Sprague on 08/03/24 09:36 UR Blood Negative Last Edit by FAB Sprague on 08/03/24 09:36 UR Specific Gray 1.015 Last Edit by FAB Sprague on 08/03/24 09: 36 UR Ketone Negative Last Edit by FAB Sprague on 08/03/24 09:36 UR Bilirubin Negative Last Edit by FAB Sprague on 08/03/24 09:36 UR Glucose Negative Last Edit by FAB Sprague on 08/03/24 09:36 Coding Level of Care Code Est Pt Level 4 (82689) Complex EM visit Add On G2211 Diagnoses Recurrent major depressive disorder, in partial remission F33.41 Active/Remission status: in partial remission Major depression recurrence: recurrent Thrombocytopenia D69.6 Cirrhosis K74.60 Assessment & Plan Assessment & Plan (1) Major depression: Comment: Code(s): F32.9 - Major depressive disorder, single episode, unspecified Category: Medical Qualifiers: Active/Remission status: in partial remission Major depression recurrence: recurrent Qualified Code(s): F33.41 - Major depressive disorder, recurrent, in partial remission Plan: Scheduled to see a therapist today. See below (2) Thrombocytopenia: Code(s): D69.6 - Thrombocytopenia, unspecified Category: Medical Plan: Bruising could be due to low platelets, See below (3) Cirrhosis: Code(s): K74.60 - Unspecified cirrhosis of liver Category: Medical Plan: Condition is stable Orders: Orders Lipid Panel Today D69.6 - Thrombocytopenia, unspecified, F33.41 - Major depressive disorder, recurrent, in partial remission, K74.60 - Unspecified cirrhosis of liver Liver Panel Today D69.6 - Thrombocytopenia, unspecified, F33.41 - Major depressive disorder, recurrent, in partial remission, K74.60 - Unspecified cirrhosis of liver UA and rflx microscopic Today D69.6 - Thrombocytopenia, unspecified, F33.41 - Major depressive disorder, recurrent, in partial remission, K74.60 - Unspecified cirrhosis of liver Complete Blood Count no Diff Today D69.6 - Thrombocytopenia, unspecified, F33.41 - Major depressive disorder, recurrent, in partial remission, K74.60 - Unspecified cirrhosis of liver Scribe Plan - Not visible on output: History of Present Illness The patient is a 48-year-old male presenting with ongoing issues related to depression and anxiety. The patient reports being in therapy and has been hospitalized several times due to panic attacks. Despite receiving psychiatric care, the condition continues to affect the patient's daily life significantly. He is currently on doxepin and gabapentin after discontinuing other medications. The patient is also undergoing methadone maintenance treatment and has recently reduced his dosage to 100 mg. He has not consumed alcohol for over six months and is partaking in a program to aid recovery. The patient describes sleep disruption, attributing it to his living situation where roommates suffer from obstructive sleep apnea and snore. He notes lethargic feelings, worsened by lack of sleep. Patient fell from a bed and bruised the left lower side of his back. He would like the area examined. In addition, he has a rash on the left groin. Social History - Participates in a recovery program with group involvement. - Resides in shared housing with two roommates who have obstructive sleep apnea. - Abstinent from alcohol for over six months. - Engages in light exercise and physical activities. - Reports no family involvement in substance use. Review of Systems - General: Reports feeling lethargic. - Integumentary: Reports bruising tendency and development of boils. - Gastrointestinal: Reports hyperpigmented urine. - Musculoskeletal: Denies significant pain or recent injuries. - Neurological: Reports panic attacks, denies cognitive disturbances. Physical Exam - Musculoskeletal- Observed 4 cm x 5 cm bruise on the right lower back. - Integumentary- Edema noted in the lower body with boils on the groin area. Results - Labs: Urine test completed; results normal Plan - Major Depressive Disorder: Continue current regiment of doxepin and gabapentin, assess efficacy and side effects periodically. - Generalized Anxiety Disorder: Evaluate benefit from ongoing therapy, with emphasis on cognitive-behavioral techniques and medication adherence. - Sleep Disturbance: Advocate for environmental adjustments to improve sleep hygiene, consider medication review if symptoms persist. - Substance Use Disorder: Encourage continued abstinence, provide support through existing program efforts. - Tinea Cruris: Ketoconazole cream prescribed. To apply twice a day - Methadone Maintenance: Continue dosage adjustment as per progress and tolerance levels. - Bruise lower back: Urinalysis is negative. No CVA tenderness. Patient was informed and verbally consented to the use of an ambient scribe for clinic note documentation during this visit. Discussion Notes During this visit, we reviewed the patient's ongoing depressive and anxiety symptoms, with a focus on current therapeutic interventions and the associated challenges. The patient expresses continous participation in therapy and a managed medication regimen. We discussed the importance of maintaining abstinence from alcohol, supported by active involvement in a rehabilitation program. Given recent sleep disturbances, environmental factors, and associated lethargy were discussed, with suggestions offered to ameliorate this condition. We also addressed notable edema and boil development, underscoring the importance of monitoring and potential preventive care. Patient Instructions - Continue current medication for depression and anxiety as prescribed. - Adhere to methadone management plans and reduce dosage incrementally. - Implement strategies to improve sleep quality, considering relocating or using earplugs. - Refrain from alcohol consumption and regularly engage with the support program. - Observe any changes in urine color or skin for further consultation if conditions worsen. - Follow up in three months and inform us immediately if new symptoms develop.
[2024-08-03 09:15] VITALS: BP 100/70; PULSE 75; O2SAT 93; BMI 39.8
== END 2024-08-03 09:40 | disposition home or self-care (01) ==
PROVIDERS: PCP Internal Medicine; Visit Provider Internal Medicine
DX: F33.41 Major depressive disorder, recurrent, in partial remission (principal); D69.6 Thrombocytopenia, unspecified; K74.60 Unspecified cirrhosis of liver; Z13.9 Encounter for screening, unspecified

== ENCOUNTER → 2024-08-03 09:03 | Outpatient (BNVA) | payer OTHER, SELFPAY | PROVIDERS: PCP Internal Medicine; Visit Provider Internal Medicine | DX: F33.41 Major depressive disorder, recurrent, in partial remission (principal); D69.6 Thrombocytopenia, unspecified; K74.60 Unspecified cirrhosis of liver | CPT/HCPCS: 81002; 99212 ==

== ENCOUNTER 2025-05-31 14:25 | Outpatient (AMB) | payer OTHER, SELFPAY ==
--- OUTSIDE RECORDS SUMMARY | 2025-02-27 09:15 | XMS_ITS ---
Author Organization [facility] Address [address] [place] [address] Care Team Providers Care Exploration Geologist Name Role Phone [facility] Primary Care Provider Stella Franklin [facility] REASON FOR VISIT housing Encounters Encounter Location Date Provider Diagnosis [facility] [address] [place] [address] [phone] 02/27/2025 Stella Franklin Plan Of Treatment No Information Progress Notes * Cathryn SHARPEOB: 8 (49 yo M)Acc No.[id number]:02/27/2025 Case Management Patient: Spencer Jose STANTON Provider: Raiza Franklin :1975 A ge:49 Y S ex:Male Date:02/27/2025 Address:[address] Pcp:[facility] Dejuan Shresthayoke Subjective: * Chief Complaints: * 1 . Housing. * Medical History: Objective: Assessment: Plan: * Treatment: * Images: Billing Information: * Visit Code: * Procedure Codes: Care Plan Details* * Electronic signature of Wil Franklin on 05/31/2025 at 05:08 PM EDT Sign off status: Pending * Provider: Raiza Franklin Date: 02/27/2025 Generated for Tammi chamorro/Umm/eTransmitting on: 05/31/2025 05:08 PM EDT
--- OUTSIDE RECORDS SUMMARY | 2025-03-02 09:15 | XMS_ITS ---
Author Organization [facility] Address [address] [place] [address] Care Team Providers Care Insurance Agent Name Role Phone [facility] Primary Care Provider Stella Franklin [facility] Encounters Encounter Location Date Provider Diagnosis [facility] [address] [place] [phone] 03/02/2025 Stella Franklin Plan Of Treatment No Information Progress Notes * Cathryn SHARPEOB: 8 (49 yo M)Acc No.[id number]:03/02/2025 Case Management Patient: Spencer Jose STANTON Provider: Raiza Franklin :1975 A ge:49 Y S ex:Male Date:03/02/2025 Address:[address] Pcp:[facility] Dejuan Solorzanoke Subjective: * Chief Complaints: * * Medical History: Objective: Assessment: Plan: * Treatment: * Images: Billing Information: * Visit Code: * Procedure Codes: Care Plan Details* * Electronic signature of Wil Franklin on 05/31/2025 at 05:08 PM EDT Sign off status: Pending * Provider: Raiza Franklin Date: 03/02/2025 Generated for Tammi chamorro/Umm/eTransmitting on: 05/31/2025 05:08 PM EDT
--- OUTSIDE RECORDS SUMMARY | 2025-03-03 09:15 | XMS_ITS ---
Author Organization [facility] Address [address] [place] [address] Care Team Providers Care Security Operations Manager Name Role Phone [facility] Primary Care Provider [phone] Stella Franklin [facility] [phone] Encounters Encounter Location Date Provider Diagnosis [facility] [address] [place] [id number] 03/03/2025 Stella Franklin Plan Of Treatment No Information Progress Notes * Cathryn SHARPEOB: 8 (49 yo M)Acc No.[id number]:03/03/2025 Case Management Patient: Spencer Jose STANTON Provider: Raiza Franklin :1975 A ge:49 Y S ex:Male Date:03/03/2025 Address:[address] Pcp:[facility] [place] Subjective: * Chief Complaints: * * Medical History: Objective: Assessment: Plan: * Treatment: * Images: Billing Information: * Visit Code: * Procedure Codes: Care Plan Details* * Electronic signature of Wil Franklin on 05/31/2025 at 05:07 PM EDT Sign off status: Pending * Provider: Raiza Franklin Date: 03/03/2025 Generated for Tammi chamorro/Umm/eTransmitting on: 05/31/2025 05:07 PM EDT
--- NOTE | 2025-05-31 14:28 | A.OFFPC_ITS ---
Vital Signs 05/31/25 14:29 Height 6 ft 1 in Weight 296 lb 8 oz BMI 39.1 BP 118/84 Blood Pressure Location Lt brachial Position Sitting Pulse 86 Pulse Source Pulse Oximeter Temp 97.1 F Temp Source Temporal Artery Scan Pulse Oximetry (%) 93 Oxygen Delivery Method Room Air Intake Visit Reasons: discuss sleep study Intake Note: Patient is here to follow up on Discuss Sleep study order. Furnace Setter Required: No Classification And Treatment Director: Not Required per policy Accompanied by: Self / Same As Patient Allergies No Known Allergies (No Known Allergies*) Allergy (Verified 05/31/25 14:29) Tobacco use date assessed: 05/31/25 Dental Screening Dental Screen Date: 05/31/25 Did you have a dental visit in the last 12 months?: No Did you have a dental problem in the last 6 months where you did not have access to dental care?: No Was dental information given to patient?: No [facility] Medical History (Updated 05/31/25 @ 14:50 by Juan Miguel Asif MD) Obstructive sleep apnea Substance use disorder Pain of right great toe COVID-19 Alcohol withdrawal Melena Rash Blocked ear Right upper quadrant pain Pre-op examination Liver cirrhosis Cirrhosis Alcoholism and drug addiction in family Alcoholism Major depression Surgical History Hx of esophagogastroduodenoscopy History of appendectomy Family History Father No problems noted. Mother Chronic mental illness Family/Other Depression Substance abuse Other Mental health disorder Social History (Updated 05/31/25 @ 14:35 by FAB Sprague) Household Members: Family Housing: Condominium Do you presently have visiting nurse or other home services: No Alcohol intake: current Alcohol intake frequency: does not drink Alcohol type: beer Comment: pt refuses alarm Patient Tobacco Use Status: Former Tobacco user Cigarettes Per Day: 4 e-Cigarette/Vaping Use: Currently Using Frequency of e-Cigarette/Vaping Use: Daily Second Hand Smoke Exposure: Yes Substance Use Type: Marijuana Advance Directives Date on File: 01/03/21 service: No Current occupational status: unemployed Cognitive needs: No Hearing needs: No Vision needs: No Questionnaire PHQ-9 Over the last 2 weeks, how often have you been bothered by any of the following problems? 1. Little interest or pleasure in doing things: several days 2. Feeling down, depressed, or hopeless: several days 3. Trouble falling or staying asleep, or sleeping too much: several days 4. Feeling tired or having little energy: several days 5. Poor appetite or overeating: several days 6. Feeling bad about yourself - or that you are a failure or have let yourself or your family down: not at all 7. Trouble concentrating on things, such as reading the newspaper or watching television: not at all 8. Moving or speaking so slowly that other people could have noticed. Or the opposite - being so fidgety or restless that you have been moving around a lot more than usual: not at all 9. Thoughts that you would be better off or of hurting yourself in some way: not at all Total score: 5 Depression Screening Interpretation: Positive Depression Screening Done: Yes Source: Developed by Drs. Jj Grossman, Marlin Matos, Oli Snyder and colleagues, with an educational zhao from [employer]. Thrive Questionnaire Date Thrive assessed: 05/31/25 I am a: Patient What is your living situation today?: I choose not to answer this question Within the past 12 months, did the food you bought not last and you didn't have the money to get more?: I choose not to answer this question Within the past 12 months, did you worry whether your food would run out before you got money to buy more?: I choose not to answer this question Do you have trouble paying for medicines?: I choose not to answer this question Do you have trouble getting transportation to medical appointments?: I choose not to answer this question Do you have trouble paying your heating and electricity bill?: I choose not to answer this question Do you have trouble taking care of your child, family member or friend?: I choose not to answer this question Do you have trouble with day-to-day activities such as bathing, preparing meals, shopping, managing finances, etc.?: I choose not to answer this question Are you currently unemployed and looking for a job?: I choose not to answer this question Are you interested in more education?: I choose not to answer this question Please select the resources that you would like help with: None Currently or been in a relationship where the following occur: I choose not to answer THRIVE Score: 0 AUDIT C Alcohol Use Questionnaire (AUDIT-C) 1. How often do you have a drink containing alcohol?: Never Total Score: 0 KUSH-7 AMB Questionnaire KUSH-7 Date KUSH - 7 assessed: 05/31/25 Feeling nervous, anxious, or on edge: 0 = Not at all Not being able to stop or control worryin = Not at all Worrying too much about different things: 0 = Not at all Trouble relaxin = Not at all Being so restless that it is hard to sit still: 0 = Not at all Becoming easily annoyed or irritable: 0 = Not at all Feeling afraid as if something awful might happen: 0 = Not at all Total KUSH-7 score (0-4 normal; 5-9 mild; 10-14 moderate; 15-21 severe): 0 Source: Developed by Drs. Jj Grossman, Marlin Matos, Oli Snyder and colleagues, with an educational zhao from [employer]. Physical exam (Primary Care) Vital Signs: Last Vital Signs Temp 97.1 F 05/31/25 14:29 Pulse 86 05/31/25 14:29 BP 118/84 05/31/25 14:29 Pulse Ox 93 05/31/25 14:29 Oxygen Delivery Method Room Air 05/31/25 14:29 BMI result Body Mass Index 39.1 Tobacco/Smoking Status: Tobacco use Status Tobacco use date assessed 05/31/25 05/31/25 14:30 Patient Tobacco Use Status Former Tobacco user 05/31/25 14:35 e-Cigarette/Vaping Use Currently Using 05/31/25 14:36 PHQ-9: PHQ-9 Score PHQ-9: Total score 5 05/31/25 14:30 Depression Screening Interpretation: Positive Thrive Assessment: Date of Thrive Assessment Date Thrive assessed 05/31/25 05/31/25 14:30 Currently or been in a relationship where the following occur: I choose not to answer Coding Level of Care Code Est Pt Level 4 (03705) Complex EM visit Add On G2211 Diagnoses Obstructive sleep apnea G47.33 Assessment & Plan Assessment & Plan (1) Obstructive sleep apnea: Code(s): G47.33 - Obstructive sleep apnea (adult) (pediatric) Category: Medical Plan: Sleep study has been ordered Plan History of Present Illness - The patient is a 49-year-old male presenting with rib pain and the need for a sleep study. - Rib pain: The patient reports falling out of bed approximately a week and a half ago, resulting in rib pain with a clicking sensation. - The patient had an x-ray which showed no anomalies, but the pain persists. 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 - He is considering discontinuing methadone due to its adverse effects, including significant peripheral edema. - Excessive daytime sleepiness: The patient reports feeling tired all the time, which is a concern for sleep apnea. - A sleep study has been recommended to assess his breathing at night. Social History - The patient lives alone, which affects his ability to report on snoring or other sleep disturbances. Review of Systems - Musculoskeletal: Reports rib pain with a clicking sensation. - Cardiovascular: Reports methadone-induced cardiac rhythm disturbance. - General: Reports excessive daytime sleepiness. Physical Exam General: Cooperative and healthy appearing Nutritional Appearance: Well nourished Orientation/consciousness: Patient oriented x3 Limitations: No limitations Head: Normal to inspection General: Appearance normal, both eyes and all related structures Neck: Normal visual inspection Chest: Normal palpation of entire chest wall Respiratory: Patient reports feeling tired all the time and is undergoing a sleep study due to concerns about breathing at night. ormal respiratory effort Neurology: Patient oriented x3 Results - Imaging: Rib x-ray showed no anomalies. Plan - A referral for a sleep study will be sent to assess the patient's breathing at night due to concerns of sleep apnea. - The patient is advised to consider discontinuing methadone due to its adverse effects, including cardiac rhythm disturbance and peripheral edema. Discussion Notes I discussed with the patient the need for a sleep study to evaluate his breathing at night, given the methadone-induced cardiac rhythm disturbance and excessive daytime sleepiness. We also talked about the potential benefits of discontinuing methadone due to its adverse effects, including peripheral edema. Patient Instructions - Follow up with the sleep study appointment to assess breathing at night. - Consider discussing with your healthcare provider about discontinuing methadone due to its side effects. Orders: Referrals Sleep Medicine Referral G47.33 - Obstructive sleep apnea (adult) (pediatric) Medications: Refilled furosemide (Lasix) 20 mg PO DAILY 90 tabs 0RF hydrocortisone 2.5% 1 appl topical BID PRN 20 grams 0RF skin irritation
[2025-05-31 14:29] VITALS: BP 118/84; PULSE 86; TEMP 36.2; O2SAT 93; BMI 39.1
--- OUTSIDE RECORDS SUMMARY | 2025-05-31 17:08 | XMS_ITS | Patient Health Record ---
Author Organization [facility] Address [address] [place] [address] Care Team Providers Care Wastewater Treatment Engineer Name Role Phone IVANNA CELESTIN Primary Care Provider Jj Hammer Unavailable [phone] Reason For Referral No Information Medications Medication SIG (Take, Route, Frequency, Duration) Notes Start Date End Date Status Methadone HCl Active Nadolol 20 MG 1 tablet Orally Once a day for 30 day(s) 04/30/2021 Active Immunizations Vaccine Route Administration Date Status Comme nts Influenza Unknown 05/08/2020 Administered Social History Tobacco Use: Social History Observation Description Date Details (start date - stop date) Former Smoker NA - NA Tobacco Use/Smoking Question Answer Notes Patient is a former smoker How long has it been since you last smoked? < 1 month Alcohol Screen Question Answer Notes Did you have a drink containing alcohol in the p ast year? No Points 0 Interpretation Negative Section Notes: Nonsmoker x 1 week as of the 04/30/2021 OV Currently living in a sober house --[facility]. Problems Problem Type SNOMED Code ICD Code Onset Dates Problem Status W/U Status Risk Notes Problem 73964170 Secondary esophageal varices without bleeding (I85.10) Active confirmed Problem Other cirrhosis of liver (K74.69) Active confirmed Problem Portal hypertension (16514859) Portal hypertension (K76.6) Active confirmed Problem Duodenitis (70314143) Duodenitis (K29.80) Active confirmed Problem Esophageal varices (47665602) Esophageal varices (I85.00) Active confirmed Problem Gastritis (7813610) Gastritis (K29.70) Active confirmed Problem Ulcer of esophagus (54244737) Esophagitis, erosive (K22.10) Active confirmed Problem 30353499992920 History of hepatitis C (Z86.19) Active confirmed Plan Of Treatment Pending Test Test Name Order Date LIVER PROFILE 04/30/2021 CBC w DIFF 04/30/2021 PROTHROMBIN TIME (PT, INR) 04/30/2021 ALPHA-FETOPROTEIN,TUMOR MARKER HEPATITIS C VIRAL LOAD 04/30/2021 Insurance Providers Payer Name Payer Address Payer Phone Subscriber Number Group Number Insured Name Patient Relationship to Insured Coverage Start Date Coverage End Date [facility] [address] [address] [place], [place] [id number] GRISELDA ROWLEY Self - patient is the insured Medical (General) History Medical History History ICD Code Denies [place],DM,CVA,Lung disease,renal dise ase Cirrhosis in relation to alc ohol abuse and hepatitis C--history of nonbleeding esophageal varices and portal gastropathy Hep C s/p Rx with Epclusa--? with Dr. Shubham wild UGI bleeding x 2 in 2018--up per endoscopies at [facility] revealed nonbleeding grade 1-2 esophageal varices and and a Adriane-Pinedo tear on one of the procedures. He was also noted to have portal gastropathy. He also describes upper GI bleeding for which he was at a hospital in [place] for several days but did not undergo upper endoscopy by his description Alcohol and substance abuse He has had an abdominal ultr asound, CT scan, and HIDA scan in 2020. There was no evidence for mass nor ascites, although there is a description of splenomegaly and varices. HIDA scan was normal other than a depressed gallbladder ejection fraction of 23%. Surgical History Surgery Date(Month/Year) Appendectomy
--- OUTSIDE RECORDS SUMMARY | 2025-05-31 17:08 | XMS_ITS | Clinical Summary ---
Author Organization [facility] Address [address] [place] [phone] Phone Care Team Providers Care Inventory Transcriber Name Role Phone Juan Miguel Asif MD Primary Care Provider [phone] Allergies No known active allergies Medications furosemide (LASIX) 20 mg tablet Take 1 tablet (20 mg total) by mouth 2 (two) times a day if needed (leg edema) for up to 3 days. 6 tablet 08/15/2024 Active Active Problems No known active problems Surgical History Surgery Date Site/Laterality Comments APPENDECTOMY PROCEDURE: HISTORICAL APPENDECTOMY Medical History Medical History Date Comments Drug abuse (CMS/HCC V24, CMS/HCC V28) 10/31/2010 DX:Drug abuse (HCC) Alcohol abuse 10/31/2010 DX:Alcohol abuse Hepatitis C 10/31/2010 DX:Hepatitis C; COMMENT: liver bx 2009 Family History Medical History Relation Name Comments Alcohol/Drug Brother Alcohol/Drug Father Relation Name Status Comments Brother Father Alive Mother Social History Tobacco Use Types Packs/Day Years Used Date Smoking Tobacco: Former Cigarettes Q uit: 09/07/2012 Smokeless Tobacco: Never Alcohol Use Standard Drinks/Week Comments Not Currently 0 (1 standard drink = 0.6 oz pur e alcohol) Sex and Gender Information Value Date Recorded Sex Assigned at Male 08/15/2024 5:25 PM EST Legal Sex Male 7:46 AM EST Gender Identity Male 08/15/2024 5:25 PM EST Sexual Orientation Straight 08/15/2024 5: 25 PM EST Obstetrics History Last Filed Vital Signs Vital Sign Reading Time Taken Comments Blood Pressure 131/83 12/12/2024 6:43 PM EDT Pulse 94 12/12/2024 6:43 PM EDT Temperature 36.7 C (98.1 F) 12/12/2024 6:43 PM EDT Respiratory Rate 18 12/12/2024 6:43 PM EDT Oxygen Saturation 95% 12/12/2024 6:43 PM EDT Inhaled Oxygen Concentration - - Weight 83.9 kg (185 lb) 08/15/2024 11:59 AM EST Height 185.4 cm (6' 1 ) 08/15/2024 11:59 AM EST Body Mass Index 24.41 08/15/2024 11:59 AM EST Plan of Treatment Health Maintenance Due Date Last Done Comments Hepatitis A Vaccines (1 of 2 - Risk 2-dose series) 1996 Hepatitis B Vaccines (1 of 3 - 19+ 3-dose series) 1996 Pneumococcal Vaccine: Pediat rics (0 to 5 Years) and At-Risk Patients (6 to 49 Years) (1 of 2 - PCV) 1996 Cholesterol Screening (Lipid Panel) 08/10/2022 Colorectal Cancer Screening: Colonoscopy 08/10/2022 Social Influencers of Health Screening 08/10/2022 DTaP,Tdap,and Td Vaccines (2 - Td or Tdap) 02/28/2023 02/28/2013 Depression Screening 09/07/2024 COVID-19 Vaccine ( - 2023-2 5 season) 2025 Influenza Vaccine (#1) 2025 HIV Screening Completed 03/07/2025 Hepatitis C Screening Completed 03/07/2025 HIB Vaccines Aged Out No longer eligi ble based on patient's age to complete this topic HPV Vaccines Aged Out No longer eligi ble based on patient's age to complete this topic IPV Vaccines Aged Out No longer eligi ble based on patient's age to complete this topic MMR Vaccines Aged Out No longer eligi ble based on patient's age to complete this topic Meningococcal ACWY Vaccine Aged Out N o longer eligible based on patient's age to complete this topic Meningococcal B Vaccine Aged Out No l onger eligible based on patient's age to complete this topic RSV Immunization Patients Un tereso 20 months Aged Out No longer eligible b ased on patient's age to complete this topic Varicella Vaccines Aged Out No longer eligible based on patient's age to complete this topic Procedures Procedure Name Priority Date/Time Associated Diagnosis Comments AST, ALT, BILIRUBIN ELR STATE REPORTABLES Routine 03/07/2025 9:23 AM EDT Narcotic dependence, in remission (CMS/HCC V24, CMS/HCC V28) Posttraumatic stress disorder Screening for human immunodeficiency virus Cirrhosis (CMS/HCC V24, CMS/HCC V28) BILIRUBIN DUPLICATE PROCEDURE TO ORDER Routine 03/07/2025 9:23 AM EDT Narcotic dependence, in remission (CMS/HCC V24, CMS/HCC V28) Posttraumatic stress disorder Screening for human immunodeficiency virus Cirrhosis (CMS/HCC V24, CMS/HCC V28) HIV 1, 2 ANTIBODY, P24 ANTIGEN WITH REFLEX TO DIFFERENTIATION Routine 03/07/2025 9:23 AM EDT Narcotic dependence, in remission (CMS/HCC V24, CMS/HCC V28) Posttraumatic stress disorder Screening for human immunodeficiency virus Cirrhosis (CMS/HCC V24, CMS/HCC V28) COMPLETE BLOOD COUNT Routine 03/07/2025 9:23 AM EDT Narcotic dependence, in remission (CMS/HCC V24, CMS/HCC V28) Posttraumatic stress disorder Screening for human immunodeficiency virus Cirrhosis (CMS/HCC V24, CMS/HCC V28) THYROID STIMULATING HORMONE WITH REFLEX TO FREE T4 AND FREE T3 Routine 03/07/2025 9:23 AM EDT Narcotic dependence, in remission (CMS/HCC V24, CMS/HCC V28) Posttraumatic stress disorder Screening for human immunodeficiency virus Cirrhosis (CMS/HCC V24, CMS/HCC V28) HEPATITIS PANEL, ACUTE WITH REFLEX TO CONFIRMATION Routine 03/07/2025 9:23 AM EDT Narcotic dependence, in remission (CMS/HCC V24, CMS/HCC V28) Posttraumatic stress disorder Screening for human immunodeficiency virus Cirrhosis (CMS/HCC V24, CMS/HCC V28) COMPREHENSIVE METABOLIC PANEL Routine 03/07/2025 9:23 AM EDT Narcotic dependence, in remission (CMS/HCC V24, CMS/HCC V28) Posttraumatic stress disorder Screening for human immunodeficiency virus Cirrhosis ([facility] V24, [facility] V28) from Last 3 Months Results * Bilirubin duplicate procedure to order (03/07/2025 9:23 AM EDT) Total Bilirubin 0.7 0.0 - 1.4 mg/dL LAB CHEMISTRY METHOD 03/07/2025 10:35 AM EDT [facility] Bilirubin, Direct 0.3 0.0 - 0.3 mg/dL LAB CHEMISTRY METHOD 03/07/2025 10:35 AM EDT [facility] Bilirubin, Indirect 0.4 0.0 - 1.1 mg/dL LAB CHEMISTRY METHOD 03/07/2025 10:35 AM EDT [facility] Blood Venous blood specimen / Unknown Venipuncture / Unknown 03/07/2025 9:23 AM EDT 03/07/2025 9:53 AM EDT us [facility] LAB BLOOD ORDERABLES Final Resu lt [facility] [address] [place] [address], * HIV 1,2 antibody, p24 antigen with reflex to differentiation (03/07/2025 9:23 AM EDT) Pathologist [facility] HIV Combo AB/AG Negative Negative LAB CHEMISTRY METHOD 03/07/2025 11:53 AM EDT [facility] Blood Venous blood specimen / Unknown Venipuncture / Unknown 03/07/2025 9:23 AM EDT 03/07/2025 9:53 AM EDT Narrative [facility] - 03/07/2025 11:53 AM EDT This assay is a 4th generation assay allowing for earlier detection of HIV infection by detecting the presence of the HIV-1 p24 antigen as well as the traditional antibodies to HIV type 1 (including group O) and type 2. Use of a 4th generation assay is the current CDC recommendation for HIV screening. [facility] LAB BLOOD ORDERABLES Final Resu lt Performing Organization Address [facility]/ZIP Co de Phone Number [facility] [address] [place] [address], [place] [phone] * (ABNORMAL) AST, ALT, Bilirubin ELR state reportables (03/07/2025 9:23 AM EDT) ALT (SGPT) 34 10 - 60 unit/L LAB CHEMISTRY METHOD 03/07/2025 11:57 AM EDT [facility] AST (SGOT) 43(H) 10 - 42 unit/L LAB CHEMISTRY METHOD 03/07/2025 11:57 AM EDT [facility] Bilirubin, Direct 0.3 0.0 - 0.3 mg/dL LAB CHEMISTRY METHOD 03/07/2025 11:57 AM EDT [facility] Total Bilirubin 0.7 0.0 - 1.4 mg/dL LAB CHEMISTRY METHOD 03/07/2025 11:57 AM EDT [facility] Platelets 80 K/mcL LAB HEMETOLOGY METHOD 03/07/2025 11:57 AM EDT [facility] Comment:reviewed by slide Blood Venous blood specimen / Unknown Venipuncture / Unknown 03/07/2025 9:23 AM EDT 03/07/2025 9:53 AM EDT us Kin[facility] LAB BLOOD ORDERABLES Final Resu lt [facility] [address] [place] [address], [place] [phone] * Thyroid stimulating hormone with reflex to free t4 and free t3 (03/07/2025 9:23 AM EDT) TSH 2.22 0.40 - 4.00 mcIU/mL LAB CHEMISTRY METHOD 03/07/2025 12:39 PM EDT [facility] Blood Venous blood specimen / Unknown Venipuncture / Unknown 03/07/2025 9:23 AM EDT 03/07/2025 9:53 AM EDT [facility] LAB BLOOD ORDERABLES Final Resu lt Performing Organization Address [facility]/ZIP Co de Phone Number [facility] [address] [place] [address], [place] [phone] * (ABNORMAL) Hepatitis panel, acute with reflex to confirmation (03/07/2025 9:23 AM EDT) Pathologist [facility] Hepatitis B Surface Ag Negative Negative LAB CHEMISTRY METHOD 03/07/2025 11:54 AM EDT [facility] Hepatitis A Antibody IgM Negative Negative LAB CHEMISTRY METHOD 03/07/2025 11:54 AM EDT [facility] Hep B Core IgM Negative Negative LAB CHEMISTRY METHOD 03/07/2025 11:54 AM EDT [facility] Hepatitis C Antibody Positive(A) Negative LAB CHEMISTRY METHOD 03/07/2025 11:54 AM EDT [facility] Comment:If confirmation of t his positive HCV Ab screening test is needed, please redraw and order HCV Viral Load. Note--> This test may not be added on due to different specimen requirements. Blood Venous blood specimen / Unknown Venipuncture / Unknown 03/07/2025 9:23 AM EDT 03/07/2025 9:53 AM EDT us [facility] LAB BLOOD ORDERABLES Final Resu lt Performing Organization Address [facility]/ZIP Co de Phone Number [facility] [address] [place] [address], [place] [phone] * (ABNORMAL) Complete blood count (03/07/2025 9:23 AM EDT) [facility] WBC 3.4(L) 4.8 - 10.8 K/mcL LAB HEMETOLOGY METHOD 03/07/2025 10:33 AM [facility] RBC 4.70 4.50 - 5.50 M/mcL LAB HEMETOLOGY METHOD 03/07/2025 10:33 AM [facility] Hemoglobin 13.0(L) 13.5 - 17.5 g/dL LAB HEMETOLOGY METHOD 03/07/2025 10:33 AM [facility] Hematocrit 40.6(L) 42.0 - 54.0 % LAB HEMETOLOGY METHOD 03/07/2025 10:33 AM [facility] MCV 86.6 79.0 - 98.0 FL LAB HEMETOLOGY METHOD 03/07/2025 10:33 AM [facility] MCH 27.7 27.0 - 32.0 pcg LAB HEMETOLOGY METHOD 03/07/2025 10:33 AM [facility] MCHC 32.0 32.0 - 37.0 g/dL LAB HEMETOLOGY METHOD 03/07/2025 10:33 AM [facility] RDW 14.5 11.0 - 15.0 % LAB HEMETOLOGY METHOD 03/07/2025 10:33 AM [facility] Platelets 80(L) 130 - 400 K/mcL LAB HEMETOLOGY METHOD 03/07/2025 10:33 AM [facility] Comment:reviewed by slide MPV 10.9 7.0 - 11.0 FL LAB HEMETOLOGY METHOD 03/07/2025 10:33 AM [facility] NRBC 0.0 <1.0 % LAB HEMETOLOGY METHOD 03/07/2025 10:33 AM [facility] NRBC Absolute 0.00 <0.10 K/mcL LAB HEMETOLOGY METHOD 03/07/2025 10:33 AM [facility] Blood Venous blood specimen / Unknown Venipuncture / Unknown 03/07/2025 9:23 AM EDT 03/07/2025 9:54 AM EDT us [facility] LAB BLOOD ORDERABLES Final Resu lt [facility] [address] [place] [address], * (ABNORMAL) Comprehensive metabolic panel (03/07/2025 9:23 AM EDT) Sodium 143 133 - 145 mmol/L LAB CHEMISTRY METHOD 03/07/2025 10:35 AM [facility] Potassium 3.9 3.5 - 5.5 mmol/L LAB CHEMISTRY METHOD 03/07/2025 10:35 AM [facility] Chloride 109 96 - 110 mmol/L LAB CHEMISTRY METHOD 03/07/2025 10:35 AM [facility] CO2 30 21 - 32 mmol/L LAB CHEMISTRY METHOD 03/07/2025 10:35 AM [facility] Anion Gap 4 3 - 11 LAB CHEMISTRY METHOD 03/07/2025 10:35 AM [facility] Glucose 102(H) 70 - 100 mg/dL LAB CHEMISTRY METHOD 03/07/2025 10:35 AM [facility] BUN 7 5 - 25 mg/dL LAB CHEMISTRY METHOD 03/07/2025 10:35 AM [facility] Creatinine 0.89 0.70 - 1.30 mg/dL LAB CHEMISTRY METHOD 03/07/2025 10:35 AM [facility] eGFR 106 >=60 mL/min/1. 73m2 LAB CHEMISTRY METHOD 03/07/2025 10:35 AM [facility] Comment:Calculation based on the Chronic Kidney Disease Epidemiology Collaboration (CKD-EPI) equation refit without adjustment for race. BUN/Creatinine Ratio 7.9 LAB CHEMISTRY METHOD 03/07/2025 10:35 AM [facility] Calcium 8.3(L) 8.5 - 10.5 mg/dL LAB CHEMISTRY METHOD 03/07/2025 10:35 AM [facility] AST (SGOT) 43(H) 10 - 42 unit/L LAB CHEMISTRY METHOD 03/07/2025 10:35 AM [facility] ALT (SGPT) 34 10 - 60 unit/L LAB CHEMISTRY METHOD 03/07/2025 10:35 AM [facility] Alkaline Phosphatase 81 42 - 121 unit/L LAB CHEMISTRY METHOD 03/07/2025 10:35 AM [facility] Total Protein 7.1 6.0 - 8.0 g/dL LAB CHEMISTRY METHOD 03/07/2025 10:35 AM [facility] Albumin 3.5 3.2 - 5.0 g/dL LAB CHEMISTRY METHOD 03/07/2025 10:35 AM [facility] Total Bilirubin 0.7 0.0 - 1.4 mg/dL LAB CHEMISTRY METHOD 03/07/2025 10:35 AM [facility] Blood Venous blood specimen / Unknown Venipuncture / Unknown 03/07/2025 9:23 AM EDT 03/07/2025 9:53 AM EDT us Kin[facility] LAB BLOOD ORDERABLES Final Resu lt [facility] [address] [place] [address], from Last 3 Months Insurance [facility] Care Teams Inventory Transcriber Relationship Specialty Start Date End Date Juan Miguel Asif MD [facility] [address] [place] [address] PCP - General 01/21/23
--- OUTSIDE RECORDS SUMMARY | 2025-05-31 17:08 | XMS_ITS | Patient Health Record ---
Author Organization [facility] Address [address] [place] [address] Care Team Providers Care Women Nurse Name Role Phone [facility] Primary Care Provider Stella Franklin Unavailable [phone] Reason For Referral No Information Immunizations Vaccine Route Administration Date Status Comme nts PPD planted Unknown 11/21/2008 Administered Td (adult) Unknown 09/07/1998 Administered PPD planted ID Intradermal 04/16/2009 Administered PPD planted, did not return for reading Unknown 04/19/2009 Administered Influenza Unknown 06/08/2009 Administered Problems Problem Type SNOMED Code ICD Code Onset Dates Problem Status W/U Status Risk Notes Problem Mood disorder (67061369) Mood disorder NOS (296.90) Active confirmed Problem Nondependent alcohol abuse, episodic (658984639) Episodic drinking to excess (305.02) Active confirmed Problem Opioid abuse (8559312) Opioid abuse, unspecified (305.50) Active confirmed Problem Cocaine abuse (50213278) Cocaine abuse, unspecified (305.60) Active confirmed Problem Tobacco use (338320494) Tobacco use disorder (305.1) Active confirmed Problem High risk sexual behavior (587002830) high risk sexual behavior (V69.2) Active confirmed Problem Housing lack (258479021) Experiencing Homelessness (v60.0) Active confirmed Encounters Encounter Location Date Provider Diagnosis [facility] [address], [place] [phone] 02/20/2025 Stella Franklin Plan Of Treatment No Information Insurance Providers Payer Name Payer Address Payer Phone Subscriber Number Group Number Insured Name Patient Relationship to Insured Coverage Start Date Coverage End Date [place] Medicaid Standard [address] [place] [address] [id number] Jose Sharpe Self - patient is the insured Health Safety [facility] Office [address] [address] [id number] Jose Sharpe Self - patient is the insured Medical (General) History Medical History History ICD Code Heroin:last use 3 wa-[place] Methadone Taper-02/18/09. Age:18 5-6 bags day +IV Prior ETOH Cocaine, ETOH-one year ago, C ocaine-3 wa + IV Prior HIV, Hep testing. +sexual contact 06/15 Quit Smoking (reported) Nosebleed 06/13 Hospitalization History Reason Date(Month/Year) Ear infection 06/13/09
== END 2025-05-31 15:40 | disposition home or self-care (01) ==
LOC: HO.HMCH 14:26
PROVIDERS: PCP Internal Medicine; Visit Provider Internal Medicine
DX: G47.33 Obstructive sleep apnea (adult) (pediatric) (principal)

== ENCOUNTER → 2025-05-31 14:25 | Outpatient (BNVA) | payer OTHER, SELFPAY | PROVIDERS: PCP Internal Medicine; Visit Provider Internal Medicine | DX: G47.33 Obstructive sleep apnea (adult) (pediatric) (principal); R07.81 Pleurodynia; I49.9 Cardiac arrhythmia, unspecified; T40.3X5A Adverse effect of methadone, initial encounter; R40.0 Somnolence; Z13.31 Encounter for screening for depression; Z13.39 Encounter for screening examination for other mental health and behavioral disorders | CPT/HCPCS: 99212 ==

== ENCOUNTER 2025-06-26 11:06 | Emergency (ER) | payer OTHER, SELFPAY ==
--- OUTSIDE RECORDS SUMMARY | 2025-02-27 09:15 | XMS_ITS ---
Author Organization [facility] Address [address] [place] [address] Care Team Providers Care Hyperion Analyst Name Role Phone [facility] Primary Care Provider [phone] Stella Franklin Unavailable REASON FOR VISIT housing Encounters Encounter Location Date Provider Diagnosis [facility] [address] [place] [phone] 02/27/2025 Stella Franklin Plan Of Treatment No Information Progress Notes * Cathryn SHARPEOB: 8 (49 yo M)Acc No.[id number]:02/27/2025 Case Management Patient: Spencer Jose STANTON Provider: Raiza Franklin :1975 A ge:49 Y S ex:Male Date:02/27/2025 Address:[address] Pcp:[facility] Dejuan Shresthayoke Subjective: * Chief Complaints: * 1 . Housing. * Medical History: Objective: Assessment: Plan: * Treatment: * Images: Billing Information: * Visit Code: * Procedure Codes: Care Plan Details* * Electronic signature of Wil Franklin on 06/26/2025 at 06:29 PM EDT Sign off status: Pending * Provider: Raiza Franklin Date: 0 02/27/2025 Generated for Tammi chamorro/Umm/eTransmitting on: 1 06:29 PM EDT
--- OUTSIDE RECORDS SUMMARY | 2025-03-02 09:15 | XMS_ITS ---
Author Organization [facility] Address [address] [place] [address] Care Team Providers Care Foxing Closer Name Role Phone [facility] Primary Care Provider Stella Franklin [facility] Encounters Encounter Location Date Provider Diagnosis [facility] [address] [place] [address] [phone] 03/02/2025 Stella Franklin Plan Of Treatment No Information Progress Notes * Cathryn SHARPEOB: 8 (49 yo M)Acc No.[id number]:03/02/2025 Case Management Patient: Spencer Jose STANTON Provider: Raiza Franklin :1975 A ge:49 Y S ex:Male Date:03/02/2025 Address:[address] Pcp:[facility] Dejuan Solorzanoke Subjective: * Chief Complaints: * * Medical History: Objective: Assessment: Plan: * Treatment: * Images: Billing Information: * Visit Code: * Procedure Codes: Care Plan Details* * Electronic signature of Wil Franklin on 06/26/2025 at 06:29 PM EDT Sign off status: Pending * Provider: Raiza Franklin Date: 0 03/02/2025 Generated for Tammi chamorro/Umm/eTransmitting on: 1 06:29 PM EDT
--- OUTSIDE RECORDS SUMMARY | 2025-03-03 09:15 | XMS_ITS ---
Author Organization [facility] Address [address] [place] [address] Care Team Providers Care Auto Overhauler Name Role Phone [facility] Primary Care Provider [phone] Stella Franklin [facility] Encounters Encounter Location Date Provider Diagnosis [facility] [address] [place] [phone] 03/03/2025 Stella Franklin Plan Of Treatment No Information Progress Notes * Cathryn SHARPEOB: 8 (49 yo M)Acc No.[id number]:03/03/2025 Case Management Patient: Spencer Jose STANTON Provider: Raiza Franklin :1975 A ge:49 Y S ex:Male Date:03/03/2025 Address:[address] Pcp:[facility] De[place]an [place] Subjective: * Chief Complaints: * * Medical History: Objective: Assessment: Plan: * Treatment: * Images: Billing Information: * Visit Code: * Procedure Codes: Care Plan Details* * Electronic signature of Wil Franklin on 06/26/2025 at 06:29 PM EDT Sign off status: Pending * Provider: Raiza Franklin Date: 0 03/03/2025 Generated for Tammi chamorro/Umm/eTransmitting on: 1 06:29 PM EDT
--- NOTE | ~2025-06-26 | XR_ITS ---
EXAMINATION: XR CHEST CLINICAL INFORMATION: pain COMPARISON: 09/21/2023. TECHNIQUE: 2 views of the chest were obtained. FINDINGS: The cardiac, hilar, and mediastinal contours are normal. Lungs are mildly hyperaerated, however grossly clear bilaterally. Mild linear scarring or atelectasis in the subpleural lateral left lung. There is no pneumothorax or pleural effusion. There is no focal osseous or soft tissue abnormality. XR/XR chest 2V IMPRESSION: No active pulmonary disease. Electronically signed by: Kit Armstrong MD 06/26/2025 12:45 PM EDT
[2025-06-26 11:51] VITALS: BP 121/74; PULSE 90; RESP 18; TEMP 37; O2SAT 92; BMI 39.3
--- NOTE | 2025-06-26 11:57 | ED.GENADULT ---
[facility] - General Adult General Chief complaint: Syncope Stated complaint: abd pain feels like passing out Time Seen by Provider: 06/26/25 14:38 Source: patient Mode of arrival: ambulatory Limitations: no limitations History of Present Illness ED Provider: [facility] narrative: 49-year-old male currently recovery, presenting from my understanding from a sober living, multiple medications he is on 125 mg of methadone, he is on baclofen, gabapentin, hydroxyzine, has a history of liver cirrhosis and reportedly stopped taking his lactulose because it was making him go to the bathroom too much. He states that for the past 1-1/2 weeks he felt dizzy, feels like he is falling asleep and had 3 or 4 syncopal episodes it a syncopal episode while brushing his teeth and it sounded like he was nodding off and then his head hit the mirror, no reports of chest pain or palpitations, he denies ongoing drug use. Related Data Home Medications ?Medication ?Instructions ?Recorded ?Confirmed methadone 10 mg/mL oral 125 mg PO DAILY 09/18/21 11/28/22 concentrate (Methadose) gabapentin 300 mg capsule 300 mg PO TID 12/29/23 12/29/23 Previous Rx's ?Medication ?Instructions ?Recorded furosemide 20 mg tablet (Lasix) 20 mg PO DAILY #90 tabs 05/31/25 hydrocortisone 2.5 % topical cream 1 appl topical BID PRN skin 05/31/25 irritation #20 grams Allergies Allergy/AdvReac Type Severity Reaction Status Date / Time No Known Allergies (No Known Allergy Verified 06/26/25 11:56 Allergies*) Review of Systems Constitutional: Constitutional: Reports as per [facility] Past Medical History Medical History Obstructive sleep apnea Substance use disorder Pain of right great toe COVID-19 Alcohol withdrawal Melena Rash Blocked ear Right upper quadrant pain Pre-op examination Liver cirrhosis Cirrhosis Alcoholism and drug addiction in family Alcoholism Major depression Surgical History Hx of esophagogastroduodenoscopy History of appendectomy Family History Family History Father No problems noted. Mother Chronic mental illness Family/Other Depression Substance abuse Other Mental health disorder Social History Social History (Updated 05/31/25 @ 14:35 by FAB Sprague) Household Members: Family Housing: Condominium Do you presently have visiting nurse or other home services: No Alcohol intake: current Alcohol intake frequency: does not drink Alcohol type: beer Comment: pt refuses alarm Patient Tobacco Use Status: Former Tobacco user Cigarettes Per Day: 4 e-Cigarette/Vaping Use: Currently Using Second Hand Smoke Exposure: Yes Substance Use Type: Marijuana Advance Directives: Yes Advance Directives on File: Yes Advance Directives Date on File: 01/03/21 service: No Current occupational status: unemployed Cognitive needs: No Hearing needs: No Vision needs: No Physical Exam ED Exam Exam: General: ?Appears of stated age patient is somewhat sedated but not lethargic ? ?pupils 3 mm no scleral icterus ? Neck: Supple, no LAD ? ?CV: RRR, no obvious murmurs appreciated ? ?Resp: ?No wheezing rales rhonchi no stridor moving air well ? Abd: ?Bowel sounds are present, no tenderness no rebound no rigidity ? ?MSK: FROM, strength 5/5 all extremities, there was no pitting edema bilateral lower extremities, does have varicose veins ? Skin: Warm, dry, intact, no jaundice ? ?Neuro: ?Alert and oriented x3, moving upper and lower extremities symmetrically, no obvious facial asymmetry noted, cranial nerves 2-12 intact, no dysmetria upper or lower extremities, no nystagmus Vital Signs: Vital Signs - 24 hr 06/26/25 11:51 06/26/25 15:57 Temperature 98.6 F 98.5 F Pulse Rate 90 78 Respiratory Rate 18 17 Blood Pressure 121/74 124/76 Pulse Oximetry 92 97 Oxygen Delivery Method Room Air Nasal Cannula Oxygen Flow Rate 2 BMI result Body Mass Index 39.3 Course Course Course Narrative: RME, this is a rapid medical exam performed by Anirudh Cedillo please refer to primary provider for complete H&P- 49-year-old male presents for evaluation of abdominal pain episodes I will times this week. He also compliant with the swelling in his legs and abdomen he has a history of liver disease due to cirrhosis. Plan for labs, EKG, chest x-ray Medical Decision Making Medical Decision Making [facility] Narrative: 3:39 PM 06/26/2025 (Dr. Kendall Domingo): Clinically patient is ambulatory, he is doing well, there was no evidence for nystagmus to suspect BPPV, there was no evidence for underlying dysrhythmia or significantly prolonged QTC on his ECG, if he is on methadone, baclofen, gabapentin, Zoloft, all these can prolonged QT, but it appears similar to prior, he did report that he has stopped taking lactulose I will check his ammonia status but judging from the medication list he is overmedicated, possibly some underlying dehydration as well as somewhat increased specific gravity on urinalysis but no evidence of TA Differential Diagnosis Differential Diagnoses: The differential diagnosis associated with the presentation includes (Hyperammonemia, vasovagal, orthostatic, over medication, QTC prolongation, dysrhythmia) Admission/Observation Consideration of admission/observation: Escalation of care including admission/observation considered Lab Data MDM Lab Attestation statement: I reviewed the patient's lab results. 06/26/25 12:24 06/26/25 12:24 Labs: Lab Results 06/26/25 06/26/25 06/26/25 Range/Units 12:24 15:04 16:41 WBC 6.7 (4.8-10.8) X10*3/uL RBC 4.55 L (4.60-5.80) X10*6/uL Hgb 12.6 L (14.0-18.0) g/dl Hct 38.6 L (42.0-52.0) % MCV 84.8 (80.0-98.0) fL MCH 27.7 (27.0-33.0) pg MCHC 32.6 (31.0-36.0) g/dl RDW 14.1 (11.0-16.0) % Plt Count 96 L (160-400) X10*3/uL MPV 11.1 (9.4-12.4) fL Immature Gran % (Auto) 0.3 (0.0-0.4) % Neut % (Auto) 66.0 (45-73) % Lymph % (Auto) 21.7 (20-40) % Hale % (Auto) 7.2 (2-11) % Eos % (Auto) 4.2 H (0-4) % Baso % (Auto) 0.6 (0-2) % Lymph # (Auto) 1.4 (1.2-4.9) X10*3/uL Hale # (Auto) 0.5 (0.1-1.2) X10*3/uL Eos # (Auto) 0.3 (0.0-0.4) X10*3/uL Baso # (Auto) 0.0 (0.0-0.2) X10*3/uL Abs Immat Gran (auto) 0.02 (0.00-0.03) X10*3/uL Absolute Neuts (auto) 4.4 (2.0-8.3) x10*3/uL Absolute Nucleated RBC 0.000 (0.0-0.012) X10*3/uL Nucleated RBC % (auto) 0.0 (0.0-0.2) /100WBC Sodium 141 (135-145) mmol/L Potassium 4.0 (3.3-5.1) mmol/L Chloride 105 (96-108) mmol/L Carbon Dioxide 28 (22-29) mmol/L Anion Gap 12 (12-20) BUN 10 (9-16) mg/dL Creatinine 0.78 (0.5-1.4) mg/dL Estim Creat Clear Calc 168.9 Estimated GFR > 60 Random Glucose 111 (60-115) mg/dL Calcium 8.4 (8.4-10.2) mg/dL Total Bilirubin 0.9 (0.0-1.0) mg/dL Direct Bilirubin 0.4 (0.0-0.5) mg/dL AST 122 H (5-37) U/L ALT 40 (0-40) U/L Alkaline Phosphatase 75 (39-117) U/L Ammonia 16 (13-55) umol/L Troponin I High Sens < 2.7 (<3.5-35.0) ng/L NT-Pro-B Natriuret Pep 59.9 (<300) pg/mL Total Protein 7.4 (6.5-8.0) g/dL Albumin 3.9 (3.5-5.0) g/dL Lipase 17 (8-78) U/L Urine Color Dark Yellow Urine Appearance Clear Urine pH 5.5 (5.0-9.0) Ur Specific Barton >= 1.030 H (1.005-1.025) Urine Protein Negative (Neg-Trace) mg/dL Urine Glucose (UA) Negative (Negative) mg/dL Urine Ketones Trace (Negative) mg/dL Urine Blood Negative (Negative) Urine Nitrite Negative (Negative) Ur Leukocyte Esterase Negative (Negative) Urine RBC 0-2 (0-2) /HPF Urine WBC 0-5 (0-5) /HPF Ur Squamous Epith Cells 0-2 (0-2) /HPF Urine Bacteria None Seen (None Seen) Hyaline Casts 0-2 (0-2) /LPF Urine Opiates Screen Not Detected (Not Detect) Ur Buprenorphine Scrn Not Detected (Not Detect) ng/mL Ur Oxycodone Screen Not Detected (Not Detect) ng/mL Urine Methadone Screen Positive H (Not Detect) ng/mL Urine Fentanyl Screen Not Detected (Not Detect) Ur Barbiturates Screen Not Detected (Not Detect) Ur Phencyclidine Scrn Not Detected (Not Detect) Ur Amphetamines Screen Not Detected (Not Detect) U Benzodiazepines Scrn POSITIVE H (Not Detect) Urine Cocaine Screen Not Detected (Not Detect) U Marijuana (THC) Screen Not Detected (Not Detect) Ethyl Alcohol 10 mg/dL Independent Interpretation I performed an independent interpretation of an: EKG (89 beats per minute, no dysrhythmia, slightly prolonged QTC at 509, this is fairly normal for him based on his prior ECGs) External Record Review External record reviewed: Outpatient record Chronic Conditions Patient?s care impacted by: Other (Polysubstance use disorder) Social Determinants Patient?s care significantly limited by Social Determinants of Health including: Alcoholism and drug addiction in family and Problems related to primary support group Discharge Plan Discharge Clinical Impression: Syncope, Medication adverse effect Additional Instructions: Patient presented with reports of passing out, he is ECG is essentially unremarkable, he had cardiac enzymes unremarkable, blood work reassuring, he stopped taking lactulose but ammonia level is not elevated, I recommend you do not stop this medication though I reviewed his medication list, he is on a lot of medications that we will over sedate him, including methadone, gabapentin, Zoloft, baclofen all these can lead to low blood pressure, and over medication and I believe that is likely a big contributor to this, plus history of cirrhosis places patient at a risk for low blood pressure, I recommend staying well hydrated, re-evaluating the medications that he is on and determine whether he needs to be on for example baclofen and how much gabapentin he takes, and also titrating down his methadone Prescriptions: No Action methadone [Methadose] 10 mg/mL Concentrate 125 mg PO DAILY Rx Instructions: [facility] gabapentin 300 mg capsule 300 mg PO TID furosemide [Lasix] 20 mg tablet 20 mg PO DAILY Qty: 90 0RF hydrocortisone 2.5 % cream 1 appl topical BID PRN (Reason: skin irritation) Qty: 20 0RF Print Language: Comoran
--- NOTE | 2025-06-26 11:59 | ECG_ITS ---
Test Reason : SYNCOPE Blood Pressure : */* mmHG Vent. Rate : 89 BPM Atrial Rate : 89 BPM P-R Int : 164 ms QRS Dur : 100 ms QT Int : 414 ms P-R-T Axes : 31 1 21 degrees QTcB Int : 503 ms Normal sinus rhythm Minimal voltage criteria for LVH, may be normal variant ( R in aVL ) Prolonged QT Abnormal ECG When compared with ECG of 20-Sep-2023 23:54, No significant change was found Referred By: Jose Cedillo Electronically Signed By: SHANA MORALES MD
[2025-06-26 12:28] LABS: MANUAL DIFF FLAG NO
[2025-06-26 12:30] LABS: NRBC Abs Auto 0.000 X10*3/uL (0.0-0.012); NRBC Pct Auto 0.0 /100WBC (0.0-0.2); PLT CLUMP 1; SCAN SMEAR FLAG 1
[2025-06-26 12:32] LABS: Hematocrit 38.6 % (42.0-52.0); Hemoglobin 12.6 g/dl (14.0-18.0); Imm Gran Abs Auto 0.02 X10*3/uL (0.00-0.03); Imm Gran Pct Auto 0.3 % (0.0-0.4); Lymphocytes Absolute Auto 1.4 X10*3/uL (1.2-4.9); Mean Corpuscular HGB Conc 32.6 g/dl (31.0-36.0); Mean Corpuscular Hemoglobin 27.7 pg (27.0-33.0); Mean Corpuscular Volume 84.8 fL (80.0-98.0); Red Blood Count 4.55 X10*6/uL (4.60-5.80)
[2025-06-26 12:33] LABS: Platelet Count 96 X10*3/uL (160-400); White Blood Count 6.7 X10*3/uL (4.8-10.8)
[2025-06-26 12:47] LABS: Alanine Aminotransferase 40 U/L (0-40); Albumin Level 3.9 g/dL (3.5-5.0); Alkaline Phosphatase 75 U/L (39-117); Anion Gap 12 (12-20); Aspartate Amino Transferase 122 U/L (5-37); Blood Urea Nitrogen 10 mg/dL (9-16); Calcium 8.4 mg/dL (8.4-10.2); Carbon Dioxide 28 mmol/L (22-29); Chloride 105 mmol/L (96-108); Creatinine Clr Calc Pharmacy 168.9; Estimated Glomerular Filt Rate > 60; Lipase 17 U/L (8-78); Potassium 4.0 mmol/L (3.3-5.1); Sodium 141 mmol/L (135-145); Total Protein 7.4 g/dL (6.5-8.0)
[2025-06-26 13:02] LABS: Troponin-I High Sensitivity < 2.7 ng/L (<3.5-35.0)
[2025-06-26 13:37] LABS: NT Pro B Type Natriuretic Pept 59.9 pg/mL (<300)
[2025-06-26 15:20] LABS: Appearance Urine Clear; Glucose Urine UA Negative (Negative); PH 5.5 (5.0-9.0); Specific Gravity - Urine >= 1.030 (1.005-1.025)
[2025-06-26 15:57] VITALS: BP 124/76; PULSE 78; RESP 17; TEMP 36.9; O2SAT 97
[2025-06-26 16:15] LABS: Cannabinoid Screen Urine Not Detected (Not Detect)
[2025-06-26 16:56] LABS: Ammonia 16 umol/L (13-55)
[2025-06-26 17:25] VITALS: BP 121/80; PULSE 69; RESP 16; TEMP 36.4; O2SAT 94
--- OUTSIDE RECORDS SUMMARY | 2025-06-26 18:28 | XMS_ITS | Patient Health Record ---
Author Organization [facility] Address [address] [place] [address] Care Team Providers Care Plastic Extruding Machine Operator Name Role Phone [facility] Primary Care Provider [phone] Stella Franklin Unavailable [phone] Reason For Referral No Information Immunizations Vaccine Route Administration Date Status Comme nts PPD planted Unknown 11/21/2008 Administered Td (adult) Unknown 09/07/1998 Administered PPD planted ID Intradermal 04/16/2009 Administered PPD planted, did not return for reading Unknown 04/19/2009 Administered Influenza Unknown 06/08/2009 Administered Problems Problem Type SNOMED Code ICD Code Onset Dates Problem Status W/U Status Risk Notes Problem Mood disorder (10079813) Mood disorder NOS (296.90) Active confirmed Problem Nondependent alcohol abuse, episodic (220235000) Episodic drinking to excess (305.02) Active confirmed Problem Opioid abuse (1331855) Opioid abuse, unspecified (305.50) Active confirmed Problem Cocaine abuse (58291599) Cocaine abuse, unspecified (305.60) Active confirmed Problem Tobacco use (950931904) Tobacco use disorder (305.1) Active confirmed Problem High risk sexual behavior (665339360) high risk sexual behavior (V69.2) Active confirmed Problem Housing lack (217525070) Experiencing Homelessness (v60.0) Active confirmed Encounters Encounter Location Date Provider Diagnosis [facility] [address], [place] [id number] 02/20/2025 Stella Franklin Plan Of Treatment No Information Insurance Providers Payer Name Payer Address Payer Phone Subscriber Number Group Number Insured Name Patient Relationship to Insured Coverage Start Date Coverage End Date [place] [address] [place] [address] [phone] [id number] Jose Sharpe Self - patient is the insured Health Safety [facility] [address] [address] [id number] Jose Sharpe Self - patient is the [...]
--- OUTSIDE RECORDS SUMMARY | 2025-06-26 18:29 | XMS_ITS | Patient Health Record ---
Author Organization [facility] Address [address] [place] [address] Care Team Providers Care Engagement Quality Consultant Name Role Phone IVANNA CELESTIN Primary Care Provider Jj Hammer Unavailable [phone] Reason For Referral No Information Medications Medication SIG (Take, Route, Frequency, Duration) Notes Start Date End Date Status Methadone HCl Active Nadolol 20 MG 1 tablet Orally Once a day; Duration: 30 day(s) 04/30/2021 Active Immunizations Vaccine Route [...] Problem Status W/U Status Risk Notes Problem Oesophageal varices without bleeding (09721249) Secondary esophageal varices without bleeding (I85.10) Active confirmed Problem Cirrhosis of liver (07247533) Other cirrhosis of liver (K74.69) Active confirmed Problem Portal hypertension (62621563) Portal hypertension (K76.6) Active confirmed Problem Duodenitis (15577035) Duodenitis (K29.80) Active confirmed Problem Esophageal varices (66773294) Esophageal varices (I85.00) Active confirmed Problem Gastritis (2188583) Gastritis (K29.70) Active confirmed Problem Ulcer of esophagus (14019158) Esophagitis, erosive (K22.10) Active confirmed Problem History of hepatitis C (25794558225586) History of hepatitis C (Z86.19) Active confirmed Plan Of Treatment Pending Test Test Name Order Date LIVER PROFILE 04/30/2021 CBC w DIFF 04/30/2021 PROTHROMBIN TIME (PT, INR) 04/30/2021 ALPHA-FETOPROTEIN,TUMOR MARKER HEPATITIS C VIRAL LOAD 04/30/2021 Insurance Providers Payer Name Payer Address Payer Phone Subscriber Number Group Number Insured Name Patient Relationship to Insured Coverage Start Date Coverage End Date [facility] [employer] [facility] [address] [address] [place], [place] [phone] [id number] GRISELDA ROWLEY Self - patient is the insured Medical (General) History Medical History History ICD Code Denies OR,DM,CVA,Lung disease,renal dise ase Cirrhosis in relation to alc ohol abuse and hepatitis C--history of nonbleeding esophageal varices and portal gastropathy Hep C s/p Rx with [facility]--? with Dr. Shubham wild UGI bleeding x 2 in 2018--[place] [facility] [place] nonbleeding grade 1-2 esophageal varices and and a Adriane-Pinedo tear on one of the procedures. He was also noted to have portal gastropathy. He also describes upper GI bleeding for which he was at a hospital in [place] for several days but did not undergo [...]
== END 2025-06-26 17:32 | disposition home or self-care (01) ==
PROVIDERS: Physician Assistant; Emergency Provider Emergency Medicine; PCP Internal Medicine
DX: R55 Syncope and collapse (principal); R42 Dizziness and giddiness; R06.02 Shortness of breath; Z79.899 Other long term (current) drug therapy; Z87.891 Personal history of nicotine dependence; Z51.81 Encounter for therapeutic drug level monitoring
CPT/HCPCS: 36415; 71046; 80048; 80076; 80307; 81001; 82140; 83690; 83880; 84484; 85025; 93005; 99283

== ENCOUNTER → 2025-06-26 11:59 | Outpatient (BNV) | payer OTHER, SELFPAY | PROVIDERS: PCP Internal Medicine; Visit Provider Radiology Diagnostic Radiology | DX: R07.9 Chest pain, unspecified (principal) | CPT/HCPCS: 71046 ==

== ENCOUNTER → 2025-06-26 11:59 | Outpatient (BNV) | payer OTHER, SELFPAY | PROVIDERS: Emergency Provider Emergency Medicine; PCP Internal Medicine; Visit Provider Internal Medicine Cardiovascular Disease | DX: R94.31 Abnormal electrocardiogram [ECG] [EKG] (principal); R55 Syncope and collapse | CPT/HCPCS: 93010 ==